=== PATIENT | male | born 1955 | race Caucasian/White ===

== ENCOUNTER 2022-03-15 13:03 | Emergency (ER) | payer MEDICAID, SELFPAY ==
[2022-03-15] VITALS (29 sets, daily range): BP systolic 124–177; BP diastolic 91–155; PULSE 75–98; RESP 18–22; TEMP 36.7; O2SAT 93–100
--- NOTE | ~2022-03-15 | XR_ITS ---
Portable chest x-ray Comparison: 05/04/2014 Clinical History: COPD Findings: COPD pattern present. No acute consolidation or pleural effusion. Cardiomediastinal silho uette is stable. Bones and soft tissues are unremarkable. Impression: COPD. Reviewed, dictated and finalized at [facility]. 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
--- NOTE | 2022-03-15 13:48 | ECG_ITS ---
Measurements Intervals [place] Rate: 84 P: 57 [place]: 150 QRS: 34 QRSD: 112 T: 73 QT: 348 QTc: 413 Interpretive Statements SINUS RHYTHM INDETERMINATE AXIS INCOMPLETE RIGHT BUNDLE BRANCH BLOCK BASELINE ARTIFACT BORDERLINE ECG NO PREVIOUS ECG AVAILABLE FOR COMPARISON Electronically Signed On 03-15-2022 16:11:18 CATALYTIC CONVERTER OPERATOR by Corey Santana M.D.
--- NOTE | 2022-03-15 13:51 | ED.GENADULT ---
HPI - General Adult General Chief complaint: Shortness of Breath/Dyspnea Stated complaint: trouble breathing, left side hip pain Time Seen by Provider: 03/15/22 13:40 History of Present Illness HPI narrative: the patient is a 66-year-old male who is not currently on any medications due to lack of insurance for several years. He has a previous diagnosis of COPD and asthma as a child for that. He does smoke cigarettes, approximately 3 packs per day initially and now down to 1.5 packs per day. He has no oxygen at home, currently is not on inhalers or nebulizers but does have the nebulizer machine. Last use of the nebulizer machine was in 2005, last use of any inhalers, albuterol, was 2018. History of diverticulitis and pneumonia treated with antibiotics. Never contracted COVID. Is vaccinated against COVID-19. History of left hip dislocation four decades ago. He presents with symptoms off and on for the last 6 years of occasional shortness of breath cough and wheezing. For the last 3 weeks however the symptoms have increased. He has audible wheezing. He feels short of breath. Does have a cough occasionally productive of white to green phlegm. With coughing, he develops left-sided rib pain and right-sided rib pain. He also complains of left hip pain. He is able to ambulate but with a limp. No recent trauma to the left hip. No dislocation. No falls. No fevers or chills or sore throat or nasal congestion. No other complaints. Related Data Allergies Allergy/AdvReac Type Severity Reaction Status Date / Time Sodium pentathol AdvReac emesis Uncoded 03/15/22 14:04 Review of Systems Review of Systems: All systems reviewed & are unremarkable except as noted in HPI and below Constitutional: Constitutional: Reports no additional constitutional complaints, Denies anorexia, Denies body ache(s), Denies chills, Denies excessive sweating, Denies fatigue, Denies fever(s), Denies frequent falls, Denies headache(s), Denies malaise and Denies poor appetite Eyes: Eyes: Reports no additional eye complaints, Denies blurry vision, Denies change in vision, Denies irritation, Denies itchy eyes and Denies photophobia ENT: Reports system reviewed and no additional complaints, except as documented, Reports Normal hearing present, Denies change in voice, Denies dysphagia, Denies vertigo, Denies dizziness, Denies ear discharge, Denies headache(s), Denies hearing loss, Denies hoarseness, Denies nasal congestion, Denies neck pain, Denies sinus pressure, Denies sore throat and Denies throat swelling Cardiovascular: Cardiovascular: Reports no additional cardiovascular complaints, Denies chest pain, Denies syncope, Denies rapid heart rate, Denies irregular heart rhythm, Denies leg edema, Denies dyspnea and Denies slow heart rate Respiratory: Respiratory: Reports no additional respiratory complaints, Reports cough, Reports dyspnea, Denies stridor and Reports wheezing Gastrointestinal: Gastrointestinal: Reports no additional gastrointestinal complaints, Denies abdominal pain, Denies melena, Denies hematochezia, Denies dysphagia, Denies diarrhea, Denies nausea and Denies vomiting Genitourinary: Genitourinary: Denies hematuria, Denies oliguria, Denies dysuria, Denies flank pain, Denies urinary frequency and Denies urinary urgency Musculoskeletal: Musculoskeletal: Reports no additional musculoskeletal complaints, Reports abnormal gait, Denies back pain, Denies myalgias, Reports arthralgias, Denies joint swelling, Denies muscle cramps, Denies muscle weakness, Denies neck pain and Denies numbness Integumentary/Breasts: Skin/Breast: Reports system reviewed and no additional complaints, except as docu, Denies breast pain, Denies change in pigmentation, Denies pruritus, Denies erythema and Denies wounds Neurologic: Reports system reviewed and no additional complaints, except as documented, Reports Normal hearing present, Denies Abnormal speech present, Denies abnormal gait, Luis
[2022-03-15] MEDS: IPRATROPIUM 0.5 MG/ALBUTEROL SULFATE 2.5 MG AMPUL.NEB 3 ML INHALATION (13:57)
[2022-03-15 14:08] LABS: Base Excess ABG 3.6 mmol/L (0-2); HCO3 ABG 28.5 mmol/L (23-29); Oxygen Content ABG 21.4 %vol (16.0-22.0); Oxygen Saturation ABG 95.1 % (95-97); Oxyhemoglobin 92.4 % (94-100); PCO2 ABG 43.9 mmHg (35-45); PO2 ABG 70.2 mmHg (80-90); Site Drawn RIGHT RADIAL; Total Hemoglobin 16.5 g/dL (12.0-18.0); pH ABG 7.43 (7.35-7.45)
[2022-03-15 14:09] LABS: Device ROOM AIR; Modified Allen's Test Pass
[2022-03-15 14:13] LABS: Basophils Absolute Auto 0.05 K/mm3 (0.00-0.10); Basophils Percent Auto 0.6 % (0.0-1.0); Eosinophils Absolute Auto 0.37 K/mm3 (0.02-0.50); Eosinophils Percent Auto 4.4 % (1.0-6.0); Hematocrit 46.2 % (40.0-54.0); Hemoglobin 15.6 g/dL (14.0-18.0); Immature Granulocyte Absolute 0.03 K/mm3 (0.00-0.00); Immature Granulocyte Percent A 0.4 % (0.0-0.0); Lymphocytes Absolute Auto 0.91 K/mm3 (1.10-4.50); Lymphocytes Percent Auto 10.7 % (18.0-42.0); Mean Corpuscular HGB Conc 33.8 g/dL (32.0-36.0); Mean Corpuscular Hemoglobin 30.6 pg (27.0-31.0); Mean Corpuscular Volume 90.8 fL (78.0-102.0); Mean Platelet Volume 8.1 fl (8.7-11.0); Monocytes Absolute Auto 0.73 K/mm3 (0.10-0.90); Monocytes Percent Auto 8.6 % (2.0-11.0); Neutrophils Absolute Auto 6.4 K/mm3 (1.7-7.2); Neutrophils Percent Auto 75.3 % (50.0-70.0); Platelet Count Result 282 K/mm3 (150-420); Red Blood Count 5.09 M/mm3 (4.70-6.10); Red Cell Distribution Width 12.3 % (11.6-14.4); White Blood Count 8.5 K/mm3 (4.8-10.8)
[2022-03-15] MEDS: ACETAMINOPHEN 500 MG TABLET 1000 MG PO (14:21)
[2022-03-15] MEDS: KETOROLAC 30 MG/ML VIAL (*BKC) 15 MG IV PUSH (14:22)
[2022-03-15] MEDS: methylPREDNISolone SOD SUCC 125 MG VIAL IV PUSH (14:24)
[2022-03-15] MEDS: MAGNESIUM SULF 2 GM/WATER 50ML 2 GM/50 ML BAG IVPB (14:27)
[2022-03-15 14:32] LABS: Alanine Aminotransferase 14 U/L (16-63); Albumin Level 4.1 g/dL (3.4-5.0); Alkaline Phosphatase 109 U/L (46-116); Anion Gap 5 mmol/L (8-16); Aspartate Amino Transferase 17 U/L (15-37); Bilirubin,Total 0.4 mg/dL (0.00-1.00); Blood Urea Nitrogen 12 mg/dL (7-18); CRP 0.5 mg/dL (0.0-0.9); Calcium 9.3 mg/dL (8.5-10.1); Carbon Dioxide 33 mmol/L (21-32); Chloride 94 mmol/L (98-108); Estimated CRCL calculation 66 ml/min; Estimated Glomerular Filt Rate > 60; Glucose 102 mg/dL (70-99); Lactic Acid Reflex 1.3 mmol/L (0.4-2.0); Magnesium 1.8 mg/dL (1.8-2.4); Osmolality Calculated 273 mOsm/kg (285-295); Potassium 4.2 mmol/L (3.5-5.1); Sodium 132 mmol/L (136-145); Total Protein 8.2 g/dL (6.4-8.2); Troponin I 20.8 ng/L (0.00-60.4)
--- NOTE | 2022-03-15 14:37 | PC.NURSE ---
PT IS SITTING UP ON STRETCHER WITH IV MEDICATION INFUSING ORDERED WITHOUT DIFFICULTY. DELAY IN ANTIBIOTICS DUE TO VERIFYING THE NEED OF BLOOD CULTURES WITH ERP. NAD NOTED. PT IS TEXTING ON CELL WITHOUT ANY DISTRESS NOTED. PT IS AWAITING RESULTS AT THIS TIME. WILL CONTINUE TO MONITOR.
[2022-03-15 15:09] LABS: Influenza A QL RT-PCR Negative (Negative); Influenza B QL RT-PCR Negative (Negative); SARS-CoV-2 RNA PCR Negative (Negative)
[2022-03-15 15:10] LABS: RSV RNA, RT-PCR Negative (Negative)
[2022-03-15 15:19] LABS: Erythrocyte Sedimentation Rate 10 mm/hr (0-20)
[2022-03-15] MEDS: AZITHROMYCIN 250 MG TABLET 500 MG PO (15:29)
--- NOTE | 2022-03-15 15:33 | PC.NURSE ---
PT SITTING ON STRETCHER TEXTING ON CELL. NAD NOTED. PT REPORTS HIP PAIN HAS IMPROVED, HOWEVER REMAINS. PT DENIES WANTING ANY FURTHER MEDICATION FOR THE PAIN. I HAVE TO DRIVE HOME. VSS PER MONITOR. IV MEDICATION INFUSING ORDERED WITHOUT DIFFICULTY. WILL CONTINUE TO MONITOR.
== END 2022-03-15 16:10 | disposition home or self-care (01) ==
PROVIDERS: Emergency Provider Emergency Medicine
DX: J44.1 Chronic obstructive pulmonary disease with (acute) exacerbation (principal); M25.552 Pain in left hip; I16.9 Hypertensive crisis, unspecified; F17.200 Nicotine dependence, unspecified, uncomplicated; Z20.822 Contact with and (suspected) exposure to COVID-19; Z76.0 Encounter for issue of repeat prescription
CPT/HCPCS: 36415; 36600; 71045; 80053; 82805; 83605; 83735; 84484; 85025; 85652; 86140; 87637; 93005; 94640; 96365; 96367; 96375; 99284; A9270; J0696; J1885; J2930; J3475

== ENCOUNTER 2022-04-05 12:24 | Outpatient (CLI) | payer MEDICAID, SELFPAY ==
--- NOTE | ~2022-04-05 | XR_ITS ---
AP and lateral views of the bilateral hips Clinical history: Pain Findings: No acute fracture or dislocation is seen. Osseous alignment is anatomic. There is moderate to advanced left hip joint degenerative change. There is mild right hip joint degenerative change.. S oft tissues are unremarkable. 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 Mild right hip joint osteoarthritis. No acute fracture identified. Reviewed, dictated and finalized at location M. 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 Mild right hip joint osteoarthritis. No acute fracture identified.
--- NOTE | ~2022-04-05 | XR_ITS ---
Lumbosacral Spine: AP and lateral views Clinical History: Pain Findings: The normal lordotic curve is maintained. The vertebral bodies and posterior elements are i ntact. There are minimal degenerative disc changes at L4-L5 and L5-S1. The sacroiliac joints are nor kerry outlined. Impression: Minimal degenerative disc changes, as above. Reviewed, dictated and finalized at location . DATA ARCHITECT Impression: Minimal degenerative disc changes, as above.
== END 2022-04-05 12:25 | disposition home or self-care (01) ==
LOC: CHSIMG 12:26
PROVIDERS: PCP Internal Medicine; Visit Provider Internal Medicine
DX: M54.50 Low back pain, unspecified (principal); M25.552 Pain in left hip; M25.551 Pain in right hip; M16.0 Bilateral primary osteoarthritis of hip
CPT/HCPCS: 72100; 73521

== ENCOUNTER 2022-05-11 09:12 | Outpatient (CLI) | payer OTHER, MEDICAID, SELFPAY ==
[2022-05-11 09:35] LABS: Basophils Absolute Auto 0.09 K/mm3 (0.00-0.10); Basophils Percent Auto 0.8 % (0.0-1.0); Eosinophils Absolute Auto 0.44 K/mm3 (0.02-0.50); Eosinophils Percent Auto 3.8 % (1.0-6.0); Hematocrit 47.2 % (40.0-54.0); Hemoglobin 15.8 g/dL (14.0-18.0); Immature Granulocyte Percent A 0.9 % (0.0-0.0); Lymphocytes Absolute Auto 1.28 K/mm3 (1.10-4.50); Mean Corpuscular HGB Conc 33.5 g/dL (32.0-36.0); Mean Corpuscular Hemoglobin 30.7 pg (27.0-31.0); Mean Corpuscular Volume 91.7 fL (78.0-102.0); Mean Platelet Volume 7.8 fl (8.7-11.0); Monocytes Absolute Auto 1.24 K/mm3 (0.10-0.90); Monocytes Percent Auto 10.6 % (2.0-11.0); Neutrophils Absolute Auto 8.5 K/mm3 (1.7-7.2); Neutrophils Percent Auto 72.9 % (50.0-70.0); Platelet Count Result 370 K/mm3 (150-420); Red Blood Count 5.15 M/mm3 (4.70-6.10); Red Cell Distribution Width 13.6 % (11.6-14.4); White Blood Count 11.7 K/mm3 (4.8-10.8)
[2022-05-11 10:16] LABS: Alanine Aminotransferase 25 U/L (16-63); Albumin Level 4.2 g/dL (3.4-5.0); Alkaline Phosphatase 106 U/L (46-116); Anion Gap 4 mmol/L (8-16); Aspartate Amino Transferase 18 U/L (15-37); Bilirubin,Total 0.5 mg/dL (0.00-1.00); Blood Urea Nitrogen 31 mg/dL (7-18); Calcium 9.5 mg/dL (8.5-10.1); Carbon Dioxide 34 mmol/L (21-32); Chloride 93 mmol/L (98-108); Cholesterol 200 mg/dL (0-200); Estimated Glomerular Filt Rate 54; Glucose 92 mg/dL (70-99); HDL Direct 75 mg/dL (40-60); LDL Cholesterol Calculated 98 mg/dL (<130); NT Pro B Type Natriuretic Pept 130 pg/mL (0-125); Osmolality Calculated 278 mOsm/kg (285-295); Potassium 5.4 mmol/L (3.5-5.1); Sodium 131 mmol/L (136-145); Thyroid Stimulating Hormone 1.69 uIU/mL (0.36-3.74); Total Protein 7.8 g/dL (6.4-8.2); Triglycerides 135 mg/dL (0-150)
== END 2022-05-11 09:13 | disposition home or self-care (01) ==
PROVIDERS: PCP Internal Medicine; Visit Provider Internal Medicine
DX: R06.00 Dyspnea, unspecified (principal); J44.9 Chronic obstructive pulmonary disease, unspecified; R63.5 Abnormal weight gain
CPT/HCPCS: 36415; 80053; 80061; 83880; 84443; 85025; 94060; 94726; 94729

== ENCOUNTER 2022-05-28 09:26 | Outpatient (CLI) | payer MEDICAID, SELFPAY ==
--- NOTE | ~2022-05-28 | CT_ITS ---
CT Scan of the Chest without Contrast: Clinical Indication: Lung cancer screening, personal history of nicotine dependence Technique: Contiguous sections were acquired throughout the chest without intravenous contrast. Dose reduction technique was used on this scan by utilizing automated exposure control and iterative recon struction technique. The dose-length product (DLP) was 269.55 mGy-cm. Findings: There is no evidence of any significant mediastinal, hilar or axillary lymphadenopathy. The mediastin al soft tissues appear normal. There is no evidence of pleural or pericardial effusion. There is an 8 mm left upper lobe pulmonary nodule (axial image 46). There is severe emphysema, especi ally the upper lobes. There is mild bibasilar subpleural reticulation. Images through the upper abdomen reveal no abnormalities. Impression: Lung RADS 4: Suspicious finding. 8 mm left upper lobe pulmonary nodule. 3 month follow-up screening C T recommended. Severe emphysema. Reviewed, dictated and finalized at location . Impression: Lung RADS 4: Suspicious finding. 8 mm left upper lobe pulmonary nodule. 3 month follow-up screening CT recommended. Severe emphysema.
== END 2022-05-28 09:27 | disposition home or self-care (01) ==
LOC: CHSIMG 09:28
PROVIDERS: PCP Internal Medicine; Visit Provider Internal Medicine
DX: Z12.2 Encounter for screening for malignant neoplasm of respiratory organs (principal); Z87.891 Personal history of nicotine dependence; R91.8 Other nonspecific abnormal finding of lung field; J43.9 Emphysema, unspecified
CPT/HCPCS: 71271

== ENCOUNTER 2022-06-03 11:54 | Outpatient (CLI) | payer MEDICAID, SELFPAY ==
[2022-06-03 12:07] LABS: Basophils Absolute Auto 0.07 K/mm3 (0.00-0.10); Basophils Percent Auto 0.6 % (0.0-1.0); Eosinophils Absolute Auto 0.18 K/mm3 (0.02-0.50); Eosinophils Percent Auto 1.4 % (1.0-6.0); Hematocrit 46.2 % (40.0-54.0); Hemoglobin 15.4 g/dL (14.0-18.0); Immature Granulocyte Absolute 0.06 K/mm3 (0.00-0.00); Immature Granulocyte Percent A 0.5 % (0.0-0.0); Lymphocytes Absolute Auto 0.78 K/mm3 (1.10-4.50); Lymphocytes Percent Auto 6.3 % (18.0-42.0); Mean Corpuscular HGB Conc 33.3 g/dL (32.0-36.0); Mean Corpuscular Hemoglobin 30.7 pg (27.0-31.0); Mean Corpuscular Volume 92.2 fL (78.0-102.0); Mean Platelet Volume 7.6 fl (8.7-11.0); Monocytes Absolute Auto 0.75 K/mm3 (0.10-0.90); Neutrophils Absolute Auto 10.6 K/mm3 (1.7-7.2); Neutrophils Percent Auto 85.2 % (50.0-70.0); Platelet Count Result 379 K/mm3 (150-420); Red Blood Count 5.01 M/mm3 (4.70-6.10); Red Cell Distribution Width 13.4 % (11.6-14.4); White Blood Count 12.4 K/mm3 (4.8-10.8)
[2022-06-03 13:01] LABS: Alanine Aminotransferase 20 U/L (16-63); Albumin Level 4.2 g/dL (3.4-5.0); Alkaline Phosphatase 126 U/L (46-116); Anion Gap 5 mmol/L (8-16); Aspartate Amino Transferase 17 U/L (15-37); Bilirubin,Total 0.4 mg/dL (0.00-1.00); Blood Urea Nitrogen 16 mg/dL (7-18); Carbon Dioxide 33 mmol/L (21-32); Chloride 93 mmol/L (98-108); Estimated Glomerular Filt Rate > 60; Glucose 112 mg/dL (70-99); NT Pro B Type Natriuretic Pept 159 pg/mL (0-125); Osmolality Calculated 274 mOsm/kg (285-295); Sodium 131 mmol/L (136-145); Total Protein 8.2 g/dL (6.4-8.2)
== END 2022-06-03 11:55 | disposition home or self-care (01) ==
LOC: CHSLAB 11:56
PROVIDERS: PCP Internal Medicine; Visit Provider Internal Medicine
DX: I50.9 Heart failure, unspecified (principal); J44.9 Chronic obstructive pulmonary disease, unspecified
CPT/HCPCS: 36415; 80053; 83880; 85025

== ENCOUNTER 2022-06-07 07:20 | Outpatient (CLI) | payer MEDICARE, MEDICAID, SELFPAY ==
--- NOTE | 2022-06-07 07:37 | EST_ITS ---
Patient Info Name: Mane Contreras Age: 66 years : 1955 Gender: Male Ht: 68 in Wt: 197 lbs BSA: 2.09 m2 HR: 75 bpm BP: 127 / 74 mmHg Heart Rhythm: Sinus Arrhythmia Technical Quality: Good Exam Date: 06/07/2022 9:03 AM Exam Location: [facility] Patient Status: Outpatient Admit Date: 06/07/2022 Staff Ordering Physician: Franklin German MD Attending Provider: Franklin German MD Exam Type: CA stress hu w NM Study Info A regadenoson stress test was performed. History/Risk Factors Hypertension: Yes Chronic Lung Disease: Yes Summary 1. 1. Negative lexiscan stress test for ischemic ST changes by ECG criteria. 2. 2. Stable hemodynamics throughout the test. 3. 3. Nuclear scan to follow and will be reported separately. Please correlate with it. Protocol: LEXISCAN Stress ECG Details Stage: REST Duration (min): 1 min : 33 sec HR (bpm): 69 SBP (mmHg): 127 DBP (mmHg): 74 Stage: REST Duration (min): 9 min : 40 sec HR (bpm): 71 SBP (mmHg): 127 DBP (mmHg): 74 Stage: STAGE 1 Duration (min): 0 min : 16 sec HR (bpm): 72 SBP (mmHg): 127 DBP (mmHg): 74 Stage: RECOVERY Duration (min): 0 min : 43 sec HR (bpm): 86 SBP (mmHg): 127 DBP (mmHg): 74 Stage: RECOVERY Duration (min): 1 min : 43 sec HR (bpm): 87 SBP (mmHg): 139 DBP (mmHg): 79 Stage: RECOVERY Duration (min): 2 min : 43 sec HR (bpm): 83 SBP (mmHg): 128 DBP (mmHg): 72 Stage: RECOVERY Duration (min): 3 min : 43 sec HR (bpm): 80 SBP (mmHg): 127 DBP (mmHg): 71 Stage: RECOVERY Duration (min): 4 min : 43 sec HR (bpm): 80 SBP (mmHg): 122 DBP (mmHg): 68 Stage: RECOVERY Duration (min): 5 min : 43 sec HR (bpm): 80 SBP (mmHg): 121 DBP (mmHg): 72 Stage: RECOVERY Duration (min): 6 min : 13 sec HR (bpm): 80 SBP (mmHg): 121 DBP (mmHg): 72 Rest HR: 71 bpm Peak HR: 89 bpm Rest Sys BP: 127 mmHg Peak Sys BP: 139 mmHg Max Pred HR: 156 bpm % Max Pred HR: 57 % Target HR: 133 bpm Max RPP: 12,371 bpm*mmHg Termination Reason: Completed Protocol Cardiac Symptoms: None Total Time: 0 min : 16 sec Rest [place] BP: 74 mmHg Peak [place] BP: 79 mmHg Total Dose: 0.4 mg Resting ECG Sinus rhythm, IRBBB, delayed precordial R/S transition. Stress ECG No abnormal ST/T wave changes. Arrhythmias No arrhythmias were observed during the examination. Report Signatures
--- NOTE | 2022-06-07 13:50 | P.NST_ITS ---
Nuclear Stress Test INDICATIONS Indications: Dyspnea PROCEDURE Procedure Performed: Myocardial Perf Spect-Multi Procedure: Patient underwent a lexiscan stress test and immediately was injected with 32.7 mCi of cardiolyte. Multiple tomographic images were obtained. These are of good quality. There is a large, severe inferior and inferoapical perfusion defects during stress imaging. A separate resting images were obtained after patient was injected with 10.1 mCi of cardiolyte. Multiple tomographic images were obtained. These are of good quality. There is a large, severe inferior and inferoapical perfusion defects during rest imaging. CONCLUSION Conclusion: 1. Myocardial perfusion imaging demonstrates fixed large, severe inferior and inferoapical perfusion defects suggestive of diaphragmatic attenuation artifact. 2. No evidence of reversible ischemia. 3. Left ventriculogram demonstrates mildly decreased measured left ejection fra ction of 47% with no wall motion abnormalities. 4. TID score 1.31 is abnormal, however, LV was not visually dilated with stress testing. Cannot r/o triple vessel or left main disease.
== END 2022-06-07 07:21 | disposition home or self-care (01) ==
LOC: CHSCARD 07:28
PROVIDERS: PCP Internal Medicine; Visit Provider Internal Medicine
DX: I50.9 Heart failure, unspecified (principal); R94.39 Abnormal result of other cardiovascular function study
CPT/HCPCS: 78452; 93017; A9502; J2785

== ENCOUNTER 2022-07-19 09:12 | Outpatient (CLI) | payer MEDICARE, MEDICAID, SELFPAY ==
--- NOTE | 2022-07-19 09:37 | ECHO_ITS ---
Patient Info Name: Mane Contreras Age: 67 years : 1955 Gender: Male Ht: 68 in Wt: 201 lbs BSA: 2.12 m2 HR: 72 bpm BP: 159 / 92 mmHg Heart Rhythm: Sinus Rhythm Technical Quality: Poor Exam Date: 07/19/2022 9:32 AM Exam Location: [facility] Patient Status: Outpatient Admit Date: 07/19/2022 Staff Ordering Physician: Eliud Kinsey DO Game Technician: Earline Olivarez RDCS Attending Provider: Eliud Kinsey DO Referring Physician: Tio CARLSON; Exam Type: CA echo doppler color flow Study Info Indications - other form of dyspnea Complete two-dimensional, color flow and Doppler transthoracic echocardiogram is performed. Reason for Poor Study: poor patient cooperation History/Risk Factors Hypertension: Yes Chronic Lung Disease: Yes Summary 1. Complete two-dimensional, color flow and Doppler transthoracic echocardiogram is performed. 2. Left ventricular chamber dimension is normal. 3. Left ventricular systolic function is normal, estimated at 55-60%. 4. There is mild concentric increased left ventricular wall thickness. 5. The left ventricular diastolic function is grade I diastolic dysfunction. 6. E/e' 10 is mildly elevated. 7. There is moderate aortic valve sclerosis. 8. No pulmonary hypertension, estimated pulmonary arterial systolic pressure is 7 mmHg. 9. There is trace pulmonic regurgitation. Left Ventricle E/e' 10 is mildly elevated. Left ventricular chamber dimension is normal. Left ventricular systolic function is normal, estimated at 55-60%. There is mild concentric increased left ventricular wall thickness. The left ventricular diastolic function is grade I diastolic dysfunction. Right Ventricle Right ventricular systolic function is normal and with normal TAPSE 2.7 cm. Right ventricular chamber dimension is normal. Left Atria Left atrial chamber dimension is normal. Right Atria Right atrial chamber dimension is normal. Aortic Valve The aortic valve is trileaflet. There is moderate aortic valve sclerosis. There is no aortic valve stenosis. There is no aortic valve regurgitation. Pulmonic Valve There is trace pulmonic regurgitation. Mitral Valve There is no mitral valve stenosis. There is no mitral valve regurgitation. Tricuspid Valve There is no tricuspid valve regurgitation. No pulmonary hypertension, estimated pulmonary arterial systolic pressure is 7 mmHg. Pericardium/Pleural There is no pericardial effusion. Inferior Vena Cava Normal inferior vena cava with >50% collapse upon inspiration consistent with normal right atrial pressure, 5 mmHg. Aorta The aortic root size at the sinus of Valsalva is normal. Left Ventricular Outflow Tract Name Value Normal LVOT 2D LVOT Diameter 1.9 cm LVOT Doppler LVOT Peak Velocity 84 cm/s LVOT Peak Gradient 3 mmHg LVOT Mean Gradient 1 mmHg LVOT VTI 21 cm LVOT VTI/AV VTI Ratio 0.7 LVOT Stroke Volume 62 ml Pulmonic Valve Name Value N
== END 2022-07-19 09:13 | disposition home or self-care (01) ==
PROVIDERS: PCP Internal Medicine; Visit Provider Internal Medicine Cardiovascular Disease
DX: R06.09 Other forms of dyspnea (principal); I35.8 Other nonrheumatic aortic valve disorders
CPT/HCPCS: 93306

== ENCOUNTER 2022-07-28 01:58 | Day surgery (SDC) | payer MEDICARE, MEDICAID, SELFPAY ==
[2022-07-27 17:55] VITALS: BMI 30.7
[2022-07-28] VITALS (12 sets, daily range): BP systolic 111–148; BP diastolic 59–90; PULSE 72–88; RESP 14–20; TEMP 37; O2SAT 95–100; BMI 30.7
[2022-07-28 09:12] LABS: Basophils Absolute Auto 0.1 K/mm3 (0.0-0.1); Basophils Percent Auto 0.6 % (0.2-1.2); Eosinophils Absolute Auto 0.2 K/mm3 (0-0.3); Hematocrit 50.8 % (42.0-52.0); Immature Granulocyte Absolute 0.15 K/mm3 (0.00-0.031); Immature Granulocyte Percent A 0.9 % (0-0.5); Lymphocytes Absolute Auto 1.06 K/mm3 (0.9-3.2); Lymphocytes Percent Auto 6.5 % (18.3-44.2); Mean Corpuscular HGB Conc 33.5 g/dl (32-36); Mean Corpuscular Hemoglobin 31.8 pg (26-34); Mean Corpuscular Volume 95.1 fl (80-100); Mean Platelet Volume 7.8 fl (7.4-10.4); Monocytes Absolute Auto 1.1 K/mm3 (0.1-0.6); Monocytes Percent Auto 6.7 % (2.6-8.5); Neutrophils Absolute Auto 13.8 K/mm3 (1.3-6.7); Neutrophils Percent Auto 84.3 % (45.5-73.1); Platelet Count Result 309 k/mm3 (150-375); Red Blood Count 5.34 M/mm3 (4.6-6.20); White Blood Count 16.3 K/mm3 (4.5-10.0)
[2022-07-28 09:21] LABS: Anion Gap 5 mmol/L (8-16); Blood Urea Nitrogen 17 mg/dL (9-20); Calcium 9.5 mg/dL (8.4-10.2); Carbon Dioxide 34 mmol/L (22-30); Chloride 96 mmol/L (98-107); Estimated CRCL calculation 79 ml/min; Estimated Glomerular Filt Rate > 60; Glucose 95 mg/dL (65-110); Potassium 4.2 mmol/L (3.4-5.0); Sodium 135 mmol/L (137-145)
--- NOTE | 2022-07-28 11:17 | WPDHPUPDATE1 ---
History and Physical Update Update Date/Time: 07/28/22 11:17 History and Physical has been reviewed, including an updated exam of the patient. There are NO changes in the patient's condition. Risks, benefits, and alternatives have been discussed and questions answered. Patient agrees to proceed with procedure.
--- NOTE | 2022-07-28 11:17 | WPDMODSED ---
Moderate Sedation Note-Pt Data Patient Data Diagnosis: Coronary artery disease Present Complaint: Coronary artery disease Procedure to be performed/Plan: Coronary angiography, LHC, +/- PCI Allergies Allergy/AdvReac Type Severity Reaction Status Date / Time latex AdvReac Rash Verified 07/28/22 09:04 Sodium pentathol AdvReac emesis Uncoded 07/28/22 09:04 Home Medications Medication Instructions Recorded Confirmed Type ipratropium 0.5 mg-albuterol 3 mg 3 ml inhalation QID PRN shortness 03/15/22 07/28/22 Rx (2.5 mg base)/3 mL nebulization of breath or wheezing #90 mL soln famotidine 40 mg tablet 40 mg PO HS 06/21/22 07/27/22 History verapamil 120 mg 24 hr 120 mg PO DAILY 06/21/22 07/28/22 History capsule,extended release aspirin 81 mg tablet,delayed 81 mg PO DAILY 07/14/22 07/28/22 History release pravastatin 10 mg tablet 10 mg PO DAILY #90 tabs 07/14/22 07/28/22 Rx cholecalciferol (vitamin D3) 10 25 mcg PO HS 07/15/22 07/27/22 History mcg (400 unit) capsule montelukast 10 mg tablet 10 mg PO HS 07/15/22 07/27/22 History losartan 25 mg tablet 25 mg PO DAILY #90 tabs 07/16/22 07/28/22 Rx albuterol sulfate 90 mcg/actuation 2 - 4 puff inhalation Q4-6H PRN 07/27/22 07/27/22 History aerosol inhaler Wheezing budesonide-formoterol HFA 160 2 puff inhalation Q12H 07/27/22 07/28/22 History mcg-4.5 mcg/actuation aerosol inhaler (Symbicort) fluticasone propionate 50 2 spray intranasal BID 07/27/22 07/28/22 History mcg/actuation nasal spray,suspension hydrocodone 10 mg-acetaminophen 1 tablet PO HS 07/27/22 07/27/22 History 325 mg tablet nicotine 21 mg/24 hr daily 1 patch topical DAILY 07/27/22 07/28/22 History transdermal patch prednisone 5 mg tablet 5 mg PO DAILY 07/27/22 07/28/22 History tiotropium bromide 18 mcg capsule 1 cap inhalation DAILY 07/27/22 07/28/22 History with inhalation device (Spiriva with HandiHaler) Current Medications: Active Medications Sodium Chloride (Normal Saline Iv) 500 mls @ 100 mls/hr IV CONT .Q5H GIA Sodium Chloride (Normal Saline Iv) 1,000 mls @ 125 mls/hr IV CONT .Q8H ONE Stop: 07/28/22 19:14 Sedation/Anesthesia: No previous sedation/anesthesia problems (including family history). [facility] Family History Family History Mother Cerebrovascular accident Patient's mother is Father Family history of emphysema Patient's father is Social History Social History Smoking packs per day: 1 Smoking cigarettes per day: 20.0 Years smoked: 56 Smoking pack-years: 56.00 Smoking status: Current every day smoker Tobacco type: cigarettes Second hand tobacco smoke exposure: Yes Additional smoking assessment comments: used to smoke up to 3 ppd, decreased recently to 2 then 1 ppd. Alcohol intake: former Substance use: current Substance use type: marijuana Living arrangements: with friend(s) Spiritual care concerns: No Mod Sed Physical Exam Physical Exam Pre Procedural Exam: Normal: Appearance, Lungs, Heart Rate, Heart Rhythm, Neuro Exam, Abdomen, Extremities and Skin Hours since solid foods: 12 Hours since liquid intake: 8 Mallampati Classification: class III Internal Medicine - PN: Obj Da Vital Signs Vital Signs: Vital Signs - 24 hr 07/28/22 09:14 Temperature 37.0 C Pulse Rate 88 Respiratory Rate 20 Blood Pressure 148/84 H Pulse Oximetry 98 Oxygen Delivery Room Air Meds/Results Medications: Active Medications Generic Name Dose Route Start Last Admin Trade Name Freq PRN Reason Stop Dose Admin Sodium Chloride 500 mls @ 100 mls/hr 07/28/22 08:30 Normal Saline Iv IV CONT .Q5H GIA Sodium Chloride 1,000 mls @ 125 mls/hr 07/28/22 11:15 Normal Saline Iv IV CONT 07/28/22 19:14 .Q8H ONE Labs 07/28/22 08:59 07/28/22 08:59
--- NOTE | 2022-07-28 11:18 | WPDCARDPROC ---
Cardiac Cath Procedure Note Date of procedure:: 07/28/22 Performing physician:: CATHETERIZATION LABORATORY REPORT Procedure Date: 07/28/2022 Beach Attendant: Yosi Schaffer M.D., [facility]? Referring Physician: Dr. Eliud Kinsey ? Anesthesia: Versed and Fentanyl were ordered and given in my presence at 10:12, procedure ended at 11:11. Supervision of nurse monitored moderate sedation with Versed and Fentanyl was provided for 59 minutes. Total of Versed 3.5mg and Fentanyl 75mcg were administered by the After School Tutor RN Munira Dangelo. Pre-op Diagnosis: Coronary artery disease Post-op Diagnosis: 1. The ostium and proximal LAD has 70% disease. IFR of the ostial-proximal LAD is positive for ischemia with a value of 0.84 (<0.89 is pathological). 2. The ostium of the OM-1 has a significant 80-90% focal stenosis. 3. Left ventricular end-diastolic pressure of 26mmHg Procedure(s): 1. Moderate sedation 2. Ultrasound-guided access of the right common femoral artery 3. Coronary angiography 4. Left heart cath 5. IFR of the LAD 6. Angioseal closure of the right common femoral artery Access Site: Right common femoral artery Brief History and Clinical Indications: Patient is a 67-year-old male with history of dyslipidemia, hypertension, COPD, tobacco dependence who is referred for [facility] for anginal symptoms (dyspnea on exertion and chest tightness) in the setting of abnormal coronary CTA. Coronary CTA shows: Vulnerable noncalcified plaque in the proximal LAD resulting in 70% stenosis, predominantly non-calcified plaque in the proximal LCX resulting in at least 90% stenosis, predominantly noncalcified plaque in the mid RCA resulting in 50% stenosis. CT FFR results showed: LCX with lesion specific abnormal CT FFR of 0.55. LAD with lesion specific abnormal CT FFR of 0.63 All risks, benefits and alternatives to left heart catheterization with or without percutaneous coronary intervention was discussed at length with the patient. Risk of complications including but not limited to bleeding, infection, arrhythmia, stroke, worsening kidney function, blood loss, groin hematoma, limb loss, emergency coronary artery bypass grafting, and even were discussed with the patient and all questions were answered. The patient understood and wished to proceed. Time out called, patient name, date of , medical record number, allergies, procedure performed, identify Beach Attendant, patient and staff member concurred with accurate data, procedure carried on. Findings: LEFT HEART CATHETERIZATION FINDINGS: 1. Left main: The left main coronary artery is widely patent without any significant obstructive disease. 2. Left anterior descending: The ostium and proximal LAD has 70% disease. Remainder of the LAD has mild diffuse disease. No obstructive disease in diagonal. IFR of the ostial-proximal LAD is positive for ischemia with a value of 0.84 (<0.89 is pathological). 3. Left circumflex: The left circumflex has mild diffuse disease. The OM-1 vessel is a large caliber branch with a high proximal origin off of the LCX. The ostium of the OM-1 has a significant 80-90% focal stenosis. Remainder of the OM branch has mild diffuse disease. 4. Right coronary artery: The RCA is the dominant vessel. The RCA has mild diffuse disease without an significant obstructive angiographic disease. 5. Left ventricle: A. End-diastolic pressure 26mmHg. B. LV gram deferred. C. No significant gradient across aortic valve on catheter pullback. Description of Procedure: Informed consent signed and placed in the chart. Patient transferred to optical laboratory manager room. Prepped and draped in usual sterile fashion. 2% lidocaine in right groin area. Micropuncture needle used to access right common femoral artery with Seldinger technique under fluoroscopic and ultrasound guidance. J wire advanced, micropuncture cannula placed. Right iliofemoral angiogram performed, access confirmed and micropuncture cannula
== END 2022-07-28 16:45 | disposition home or self-care (01) ==
PROVIDERS: PCP Internal Medicine; Visit Provider Internal Medicine
PROC: 4A023N7 Measurement of Cardiac Sampling and Pressure, Left Heart, Percutaneous Approach (ICD-10-PCS; CPT 93452; principal; 2022-07-28 10:00)
PROC: 4A033BC Measurement of Arterial Pressure, Coronary, Percutaneous Approach (ICD-10-PCS; CPT 93571; 2022-07-28 10:00)
DX: I25.10 Atherosclerotic heart disease of native coronary artery without angina pectoris (principal); R93.1 Abnormal findings on diagnostic imaging of heart and coronary circulation; R06.09 Other forms of dyspnea; R07.89 Other chest pain; I10 Essential (primary) hypertension; E78.5 Hyperlipidemia, unspecified; J44.9 Chronic obstructive pulmonary disease, unspecified; Z79.51 Long term (current) use of inhaled steroids; Z79.82 Long term (current) use of aspirin; F17.210 Nicotine dependence, cigarettes, uncomplicated; F12.90 Cannabis use, unspecified, uncomplicated
CPT/HCPCS: 36415; 80048; 85025; 93458; 93571; A9270; C1760; C1769; C1887; C1894; G0269; J0583; J1644; J2250; J3010; J7040

== ENCOUNTER 2022-08-30 07:45 | Outpatient (CLI) | payer MEDICARE, MEDICAID, SELFPAY ==
--- NOTE | ~2022-08-30 | CT_ITS ---
EXAMINATION: CT diagnostic chest wo con DATE: 08/30/2022 08:02 INDICATION: Solitary pulmonary nodule TECHNIQUE: Computed tomography (CT) of the chest was performed without intravenous contrast. The dose -length product was 404.70 mGy-cm. Automated exposure control and iterative reconstruction technique were employed. COMPARISON: CT dated 05/28/2022 FINDINGS: No thoracic lymphadenopathy. Heart size normal. There are small exophytic left renal lesion s, not well characterized without ultrasound. No significant pleural or pericardial effusion. Severe emphysema. Stable 7 mm left upper lobe nodule. There is a 2 mm left upper lobe nodule, too small to c haracterize for calcification. There are additional calcified granulomas of the right lung. There is a 3 mm nodule left mid thorax unchanged. No endobronchial lesions. There is focal pleural parenchymal scarring of the right mid thorax. No new pulmonary nodules or masses. No pneumothorax. IMPRESSION: 1. Lung-RADS category 2: Benign appearance or behavior. Continue annual screening with noncontrast lo w-dose chest CT in 12 months. Reviewed, dictated and finalized at location A. IMPRESSION: 1. Lung-RADS category 2: Benign appearance or behavior. Continue annual screeni ng with noncontrast low-dose chest CT in 12 months.
== END 2022-08-30 07:46 | disposition home or self-care (01) ==
LOC: CHSIMG 07:45
PROVIDERS: PCP Internal Medicine; Visit Provider Nurse Practitioner Family
DX: R91.1 Solitary pulmonary nodule (principal)
CPT/HCPCS: 71250

== ENCOUNTER 2022-09-01 08:13 | Outpatient (CLI) | payer MEDICARE, SELFPAY ==
[2022-09-01 08:32] LABS: Basophils Absolute Auto 0.06 K/mm3 (0.00-0.10); Basophils Percent Auto 0.4 % (0.0-1.0); Eosinophils Absolute Auto 0.31 K/mm3 (0.02-0.50); Eosinophils Percent Auto 2.3 % (1.0-6.0); Hemoglobin 15.9 g/dL (12.4-15.3); Immature Granulocyte Absolute 0.08 K/mm3 (0.00-0.00); Immature Granulocyte Percent A 0.6 % (0.0-0.0); Lymphocytes Absolute Auto 1.38 K/mm3 (1.10-4.50); Lymphocytes Percent Auto 10.2 % (18.0-42.0); Mean Corpuscular HGB Conc 33.8 g/dL (32.0-36.0); Mean Corpuscular Hemoglobin 32.1 pg (27.0-31.0); Mean Corpuscular Volume 94.8 fL (78.0-102.0); Mean Platelet Volume 7.7 fl (8.7-11.0); Monocytes Absolute Auto 1.18 K/mm3 (0.10-0.90); Monocytes Percent Auto 8.7 % (2.0-11.0); Neutrophils Absolute Auto 10.6 K/mm3 (1.7-7.2); Neutrophils Percent Auto 77.8 % (50.0-70.0); Platelet Count Result 327 K/mm3 (150-420); Red Blood Count 4.96 M/mm3 (4.70-6.10); Red Cell Distribution Width 12.8 % (11.6-14.4); White Blood Count 13.6 K/mm3 (4.8-10.8)
[2022-09-01 09:40] LABS: Alanine Aminotransferase 34 U/L (16-63); Albumin Level 3.9 g/dL (3.4-5.0); Alkaline Phosphatase 104 U/L (46-116); Anion Gap 8 mmol/L (8-16); Aspartate Amino Transferase 21 U/L (15-37); Bilirubin,Total 0.3 mg/dL (0.00-1.00); Blood Urea Nitrogen 22 mg/dL (7-18); Calcium 9.5 mg/dL (8.5-10.1); Carbon Dioxide 30 mmol/L (21-32); Chloride 96 mmol/L (98-108); Estimated Glomerular Filt Rate 45; Glucose 103 mg/dL (70-99); Osmolality Calculated 281 mOsm/kg (285-295); Potassium 4.6 mmol/L (3.5-5.1); Sodium 134 mmol/L (136-145); Total Protein 8.1 g/dL (6.4-8.2)
== END 2022-09-01 08:14 | disposition home or self-care (01) ==
LOC: CHSLAB 08:15
PROVIDERS: PCP Internal Medicine; Visit Provider Internal Medicine Cardiovascular Disease
DX: R07.9 Chest pain, unspecified (principal)
CPT/HCPCS: 36415; 80053; 85025

== ENCOUNTER 2022-11-03 09:30 | Outpatient (RCR) | payer MEDICARE, MEDICAID, SELFPAY | END 2022-11-03 15:27 | disposition home or self-care (01) | PROVIDERS: PCP Internal Medicine; Visit Provider Internal Medicine Cardiovascular Disease | DX: Z95.5 Presence of coronary angioplasty implant and graft (principal) | CPT/HCPCS: 93798 ==

== ENCOUNTER 2022-12-16 13:45 | Outpatient (CLI) | payer MEDICARE, MEDICAID, SELFPAY ==
--- NOTE | ~2022-12-16 | XR_ITS ---
EXAMINATION: XR chest 2V DATE: 12/16/2022 14:07 INDICATION: Cough TECHNIQUE: PA and lateral views of the chest are obtained. COMPARISON: 03/15/2022 FINDINGS: There are minimal airspace opacities of the right midlung zone. Lucencies in the upper lung zones are consistent with emphysema. No pleural effusion or pneumothorax. The cardiomediastinal silh ouette is normal. There is moderate thoracic spondylosis. IMPRESSION: 1. Minimal airspace opacities of the right midlung zone, likely pneumonia. Reviewed, dictated and finalized at location L. TH INFORMATION MANAGERS
== END 2022-12-16 13:46 | disposition home or self-care (01) ==
LOC: CHSIMG 13:48
PROVIDERS: PCP Internal Medicine; Visit Provider Internal Medicine
DX: R05.9 Cough, unspecified (principal); R91.8 Other nonspecific abnormal finding of lung field
CPT/HCPCS: 71046

== ENCOUNTER 2022-12-23 07:45 | Outpatient (CLI) | payer MEDICARE, MEDICAID, SELFPAY ==
--- NOTE | ~2022-12-23 | US_ITS ---
Renal-Bladder ultrasound Clinical History: Proteinuria Technique: Real-time sonographic imaging of the kidneys and urinary bladder was performed. Findings: The right kidney measures 10.3 cm in length and the left kidney measures 10.4 cm. There is no hydronephrosis or renal calculus identified. Renal cortical echogenicity is within normal limits. Left lower pole renal cysts noted. The urinary bladder is moderately distended at the time of this exam. No intraluminal echoes are iden tified. No abnormal wall thickening is seen. Impression: Unremarkable ultrasound of the kidneys and urinary bladder. Reviewed, dictated and finalized at location M. ER'S LICENSE EXAMINER Impression: Unremarkable ultrasound of the kidneys and urinary bladder.
== END 2022-12-23 07:46 | disposition home or self-care (01) ==
LOC: CHSIMG 07:47
PROVIDERS: PCP Internal Medicine; Visit Provider Internal Medicine
DX: R80.9 Proteinuria, unspecified (principal)
CPT/HCPCS: 76775

== ENCOUNTER 2023-02-11 10:56 | Outpatient (CLI) | payer MEDICARE, MEDICAID, SELFPAY ==
--- NOTE | ~2023-02-11 | XR_ITS ---
Clinical Indication: Dyspnea PA and lateral views of the chest: Comparison: 12/16/2022 Findings: The lungs are clear, without evidence of focal consolidation or pleural effusion. COPD radha lm present. Cardiomediastinal silhouette is within normal limits. Bones and soft tissues are unremar kable. Impression: COPD. Reviewed, dictated and finalized at location . LATORY AFFAIRS SPECIALIST Impression: COPD.
[2023-02-11 11:39] LABS: Basophils Absolute Auto 0.05 K/mm3 (0.00-0.10); Basophils Percent Auto 0.3 % (0.0-1.0); Eosinophils Absolute Auto 0.12 K/mm3 (0.02-0.50); Eosinophils Percent Auto 0.8 % (1.0-6.0); Hematocrit 46.3 % (37.0-46.0); Hemoglobin 15.4 g/dL (12.4-15.3); Immature Granulocyte Absolute 0.06 K/mm3 (0.00-0.00); Immature Granulocyte Percent A 0.4 % (0.0-0.0); Lymphocytes Absolute Auto 0.55 K/mm3 (1.10-4.50); Lymphocytes Percent Auto 3.6 % (18.0-42.0); Mean Corpuscular HGB Conc 33.3 g/dL (32.0-36.0); Mean Corpuscular Hemoglobin 31.8 pg (27.0-31.0); Mean Corpuscular Volume 95.5 fL (78.0-102.0); Mean Platelet Volume 7.9 fl (8.7-11.0); Monocytes Absolute Auto 0.78 K/mm3 (0.10-0.90); Monocytes Percent Auto 5.2 % (2.0-11.0); Neutrophils Absolute Auto 13.6 K/mm3 (1.7-7.2); Neutrophils Percent Auto 89.7 % (50.0-70.0); Platelet Count Result 340 K/mm3 (150-420); Red Blood Count 4.85 M/mm3 (4.70-6.10); Red Cell Distribution Width 12.5 % (11.6-14.4); White Blood Count 15.1 K/mm3 (4.8-10.8)
[2023-02-11 11:51] LABS: D Dimer 0.36 mg/L (0.19-0.50)
[2023-02-11 12:21] LABS: Alanine Aminotransferase 34 U/L (16-63); Albumin Level 4.1 g/dL (3.4-5.0); Alkaline Phosphatase 85 U/L (46-116); Anion Gap 6 mmol/L (8-16); Aspartate Amino Transferase 21 U/L (15-37); Bilirubin,Total 0.3 mg/dL (0.00-1.00); Blood Urea Nitrogen 16 mg/dL (7-18); Calcium 10.3 mg/dL (8.5-10.1); Carbon Dioxide 35 mmol/L (21-32); Chloride 92 mmol/L (98-108); Creatine Kinase 128 U/L (39-308); Estimated Glomerular Filt Rate > 60; Glucose 124 mg/dL (70-99); NT Pro B Type Natriuretic Pept 232 pg/mL (0-125); Osmolality Calculated 278 mOsm/kg (285-295); Sodium 133 mmol/L (136-145); Total Protein 7.6 g/dL (6.4-8.2); Troponin I 18.8 ng/L (0.00-60.4)
== END 2023-02-11 10:57 | disposition home or self-care (01) ==
LOC: CHSLAB 11:00
PROVIDERS: PCP Internal Medicine; Visit Provider Internal Medicine
DX: R06.00 Dyspnea, unspecified (principal); J44.9 Chronic obstructive pulmonary disease, unspecified; J18.9 Pneumonia, unspecified organism
CPT/HCPCS: 36415; 71046; 80053; 82550; 82553; 83880; 84484; 85025; 85380; 87070; 87205

== ENCOUNTER 2023-03-14 15:24 | Outpatient (CLI) | payer MEDICARE, MEDICAID, SELFPAY ==
--- NOTE | 2023-03-14 15:31 | ECG_ITS ---
Measurements Intervals [place] Rate: 92 P: 75 OK: 149 QRS: 56 QRSD: 128 T: 60 QT: 359 QTc: 446 Interpretive Statements SINUS RHYTHM WITH OCCASIONAL SUPRAVENTRICULAR PREMATURE COMPLEXES INDETERMINATE AXIS RIGHT BUNDLE BRANCH BLOCK [120+ ms QRS DURATION, UPRIGHT V1, 40+ ms S IN I/aVL/V4/V5/V6] ABNORMAL ECG COMPARED TO ECG 03/15/2022 14:04:47 RIGHT BUNDLE-BRANCH BLOCK NOW PRESENT Electronically Signed On 03-14-2023 17:12:07 QUALITY ASSURANCE INTERN by Dick Fernández M.D.
== END 2023-03-14 15:25 | disposition home or self-care (01) ==
LOC: CHSCARD 15:28
PROVIDERS: PCP Internal Medicine; Visit Provider Internal Medicine Cardiovascular Disease
DX: R07.9 Chest pain, unspecified (principal); I45.10 Unspecified right bundle-branch block; R93.1 Abnormal findings on diagnostic imaging of heart and coronary circulation
CPT/HCPCS: 93005

== ENCOUNTER 2023-04-22 11:06 | Outpatient (CLI) | payer MEDICARE, MEDICAID, SELFPAY ==
--- NOTE | ~2023-04-22 | XR_ITS ---
Clinical Indication: Dyspnea PA and lateral views of the chest: Comparison: 02/11/2023 Findings: Questionable minimal bibasilar haziness. Probable COPD. Cardiomediastinal silhouette is wit hin normal limits. Bones and soft tissues are unremarkable. Impression: Questionable minimal bibasilar pulmonary edema. Correlate clinically. Suspected underlying COPD. Reviewed, dictated and finalized at [facility]. Impression: Questionable minimal bibasilar pulmonary edema. Correlate clinically. Suspected underlying COPD.
== END 2023-04-22 11:07 | disposition home or self-care (01) ==
LOC: CHSIMG 11:08
PROVIDERS: PCP Internal Medicine; Visit Provider Nurse Practitioner Family
DX: R06.09 Other forms of dyspnea (principal); R91.8 Other nonspecific abnormal finding of lung field
CPT/HCPCS: 71046

== ENCOUNTER 2023-08-15 15:38 | Outpatient (CLI) | payer MEDICARE, MEDICAID, SELFPAY ==
--- NOTE | 2023-08-15 15:48 | ECG_ITS ---
Test Date: 2023-08-15 16:02:44 Measurements Intervals [place] Rate: 88 P: 70 OR: 153 QRS: 40 QRSD: 145 T: 35 QT: 346 QTc: 420 Interpretive Statements SINUS RHYTHM WITH OCCASIONAL SUPRAVENTRICULAR PREMATURE COMPLEXES RIGHT BUNDLE BRANCH BLOCK BASELINE ARTIFACT- V4-V5 ABNORMAL ECG No previous ECG available for comparison Electronically Signed On 08-15-2023 16:21:02 CDT by Eliud Kinsey D.O.
== END 2023-08-15 15:39 | disposition home or self-care (01) ==
LOC: CHSCARD 15:42
PROVIDERS: PCP Internal Medicine; Visit Provider Internal Medicine Cardiovascular Disease
DX: Z01.810 Encounter for preprocedural cardiovascular examination (principal); I45.10 Unspecified right bundle-branch block; R94.31 Abnormal electrocardiogram [ECG] [EKG]
CPT/HCPCS: 93005

== ENCOUNTER 2023-08-16 09:06 | Outpatient (CLI) | payer MEDICARE, MEDICAID, SELFPAY ==
[2023-08-16 10:05] LABS: Cholesterol 185 mg/dL (0-200); HDL Direct 68 mg/dL (40-60); LDL Cholesterol Calculated 81 mg/dL (<130); Triglycerides 178 mg/dL (0-150)
== END 2023-08-16 09:07 | disposition home or self-care (01) ==
LOC: CHSLAB 09:08
PROVIDERS: PCP Internal Medicine; Visit Provider Internal Medicine Cardiovascular Disease
DX: E78.5 Hyperlipidemia, unspecified (principal)
CPT/HCPCS: 36415; 80061

== ENCOUNTER 2023-08-17 11:13 | Outpatient (CLI) | payer MEDICARE, MEDICAID, SELFPAY ==
[2023-08-17] VITALS (8 sets, daily range): PULSE 104–112; O2SAT 93–94
--- NOTE | 2023-08-17 11:43 | HOMEO2EVAL ---
Evaluation was performed at [facility] Home Oxygen Evaluation RC: Home Oxygen (O2) Evaluation Start: 08/17/23 11:36 Freq: Status: Active Protocol: RPE Activity Type Activity Date Activity User E-sign Co-sign Detail Recorded Client Recorded Date Recorded By Document 08/17/23 11:19 RES [id number] 08/17/23 11:38 RES Document 08/17/23 11:20 RES [id number] 08/17/23 11:38 RES Document 08/17/23 11:21 RES [id number] 08/17/23 11:38 RES Document 08/17/23 11:22 RES [id number] 08/17/23 11:43 RES Document 08/17/23 11:23 RES [id number] 08/17/23 11:43 RES Document 08/17/23 11:24 RES [id number] 08/17/23 11:43 RES Document 08/17/23 11:25 RES [id number] 08/17/23 11:43 RES Document 08/17/23 11:26 RES [id number] 08/17/23 11:43 RES 08/17/23 08/17/23 08/17/23 11:19 11:20 11:21 Home O2 Evaluation [Oxygen] -Test Phase Resting Exercise Exercise -Oxygen Delivery Room Air Room Air Room Air -Fraction of Inspired Oxygen (%) 21 21 21 [Pulse Oximetry] -Pulse Oximetry (90-100 %) 93 94 94 [Pulse Rate] -Pulse Rate (60-100 beats/min) 109 H 111 H 109 H [Evaluation] -Activity Tolerance Good Good Good -Rating of Perceived Dyspnea (PD) +3 Moderate +3 Moderate +3 Moderate Difficulty, But Difficulty, But Difficulty, But Can Continue Can Continue Can Continue -Rate of Perceived Exertion (PE) 12 13 Somewhat 13 Somewhat Query Text:Click the Protocol Button Hard Hard to View the RPE Scale [Exercise] -Ambulation Distance (feet) -Ambulation Distance (meters) [Comments] -Home Oxygen Evaluation Comments [Charges] -Evaluation Charges O2 Evaluation Charge 08/17/23 08/17/23 08/17/23 11:22 11:23 11:24 Home O2 Evaluation [Oxygen] -Test Phase Exercise Exercise Exercise -Oxygen Delivery Room Air Room Air Room Air -Fraction of Inspired Oxygen (%) 21 21 21 [Pulse Oximetry] -Pulse Oximetry (90-100 %) 94 94 94 [Pulse Rate] -Pulse Rate (60-100 beats/min) 110 H 104 H 112 H [Evaluation] -Activity Tolerance Good Good Good -Rating of Perceived Dyspnea (PD) +3 Moderate +3 Moderate +3 Moderate Difficulty, But Difficulty, But Difficulty, But Can Continue Can Continue Can Continue -Rate of Perceived Exertion (PE) 13 Somewhat 13 Somewhat 13 Somewhat Query Text:Click the Protocol Button Hard Hard Hard to View the RPE Scale [Exercise] -Ambulation Distance (feet) -Ambulation Distance (meters) [Comments] -Home Oxygen Evaluation Comments [Charges] -Evaluation Charges 08/17/23 08/17/23 11:25 11:26 Home O2 Evaluation [Oxygen] -Test Phase Exercise Resting -Oxygen Delivery Room Air Room Air -Fraction of Inspired Oxygen (%) 21 21 [Pulse Oximetry] -Pulse Oximetry (90-100 %) 94 94 [Pulse Rate] -Pulse Rate (60-100 beats/min) 110 H 109 H [Evaluation] -Activity Tolerance Good Good -Rating of Perceived Dyspnea (PD) +3 Moderate +3 Moderate Difficulty, But Difficulty, But Can Continue Can Continue -Rate of Perceived Exertion (PE) 13 Somewhat 15 Hard Query Text:Click the Protocol Button Hard to View the RPE Scale [Exercise] -Ambulation Distance (feet) 100 -Ambulation Distance (meters) 30.47 [Comments] -Home Oxygen Evaluation Comments Patient had to stop to catch his breath multiple times, but did complete all 6 min. [Charges] -Evaluation Charges
== END 2023-08-17 11:14 | disposition home or self-care (01) ==
PROVIDERS: PCP Internal Medicine; Visit Provider Nurse Practitioner Family
DX: R09.02 Hypoxemia (principal)
CPT/HCPCS: 94618

== ENCOUNTER 2023-09-01 10:39 | Outpatient (CLI) | payer MEDICARE, MEDICAID, SELFPAY ==
--- NOTE | ~2023-09-01 | CT_ITS ---
EXAMINATION: CT lung screening DATE: 09/01/2023 11:07 INDICATION: Smoker history. Screening. Personal history of tobacco dependence. TECHNIQUE: Computed tomography (CT) of the chest was performed without intravenous contrast. The dose -length product was 227.33 mGy-cm. Automated exposure control and iterative reconstruction technique were employed. COMPARISON: CT dated 08/30/2022 FINDINGS: No thoracic lymphadenopathy. Heart size normal. There is atherosclerosis of the aorta and c oronary arteries. No significant pleural or pericardial effusion. Severe emphysema. New 6 mm left upp er lobe nodule. There is chronic interstitial lung disease peripherally. IMPRESSION: 1. Lung Rads category 4A, suspicious: recommend follow-up low dose CT chest in 3 months. Reviewed, dictated and finalized at location B.
== END 2023-09-01 10:40 | disposition home or self-care (01) ==
LOC: CHSIMG 10:41
PROVIDERS: PCP Internal Medicine; Visit Provider Nurse Practitioner Family
DX: Z12.2 Encounter for screening for malignant neoplasm of respiratory organs (principal); Z87.891 Personal history of nicotine dependence; R91.8 Other nonspecific abnormal finding of lung field
CPT/HCPCS: 71271

== ENCOUNTER 2023-09-16 10:16 | Outpatient (CLI) | payer MEDICARE, MEDICAID, SELFPAY ==
[2023-09-16 11:16] LABS: Rheumatoid Factor Screen Negative (Negative)
[2023-09-18 13:23] LABS: ANA Cascade Screen NEGATIVE (NEGATIVE)
[2023-09-19 15:28] LABS: Anti Cyclic Citrullinated Pept <16 UNITS
[2023-09-28 14:54] LABS: Aspergillus fumigatus NEGATIVE (NEGATIVE)
== END 2023-09-16 10:17 | disposition home or self-care (01) ==
LOC: CHSLAB 10:17
PROVIDERS: PCP Nurse Practitioner Family; Visit Provider Nurse Practitioner Family
DX: J84.9 Interstitial pulmonary disease, unspecified (principal)
CPT/HCPCS: 36415; 83516; 86038; 86200; 86225; 86235; 86430

== ENCOUNTER 2023-09-23 10:37 | Outpatient (CLI) | payer MEDICARE, MEDICAID, SELFPAY ==
[2023-09-23 10:50] VITALS: PULSE 107; O2SAT 90
[2023-09-23 10:51] VITALS: PULSE 110; O2SAT 91
[2023-09-23 10:52] VITALS: PULSE 111; O2SAT 90
[2023-09-23 10:53] VITALS: PULSE 115; O2SAT 91
[2023-09-23 10:54] VITALS: PULSE 115; O2SAT 90
--- NOTE | 2023-09-23 13:48 | SIXMINWLK ---
Six Minute Walk Test PFT: Six Minute Walk Start: 09/23/23 13:37 Freq: Status: Active Protocol: RPE Activity Type Activity Date Activity User E-sign Co-sign Detail Recorded Client Recorded Date Recorded By Document 09/23/23 10:50 RES [id number] 09/23/23 13:41 RES Document 09/23/23 10:51 RES [id number] 09/23/23 13:41 RES Document 09/23/23 10:53 RES [id number] 09/23/23 13:47 RES Document 09/23/23 10:54 RES [id number] 09/23/23 13:47 RES Document 09/23/23 10:52 RES [id number] 09/23/23 13:41 RES 09/23/23 09/23/23 09/23/23 10:50 10:51 10:53 Six Minute Walk Gender M M M Age [age] Race White White White Test Phase Resting Exercise Exercise Oxygen Delivery Room Air Room Air Room Air Fraction of Inspired Oxygen (%) 21 21 21 Pulse Oximetry (90-100 %) 90 91 91 Pulse Rate (60-100 beats/min) 107 H 110 H 115 H Activity Tolerance Good Good Fair Rating of Perceived Dyspnea (PD) +2 Mild, Some +2 Mild, Some +3 Moderate Difficulty, Difficulty, Difficulty, But Noticeable to Noticeable to Can Continue the Observer the Observer Rate of Perceived Exertion (1) Very Light (4-6) Moderate (4-6) Moderate Activity Activity Activity Number of Complete Laps (1 Lap = 100 Feet) Total Distance Walked (Feet) Total Distance Walked (Meters) Stopped/Paused During Testing - Enter Patient seems a Comment if Yes little SOB at rest Symptoms at End of Test Six Minute Walk Comments 09/23/23 09/23/23 10:54 10:52 Six Minute Walk Gender M M Age [age] Race White White Test Phase Exercise Exercise Oxygen Delivery Room Air Room Air Fraction of Inspired Oxygen (%) 21 21 Pulse Oximetry (90-100 %) 90 90 Pulse Rate (60-100 beats/min) 115 H 111 H Activity Tolerance Fair Fair Rating of Perceived Dyspnea (PD) +4 Severe +3 Moderate Difficulty, Difficulty, But Participant Can Continue Cannot Continue Rate of Perceived Exertion (4-6) Moderate (4-6) Moderate Activity Activity Number of Complete Laps (1 Lap = 100 2 Feet) Total Distance Walked (Feet) 200 Total Distance Walked (Meters) 60.95 Stopped/Paused During Testing - Enter Patient had to Patient did Comment if Yes stop due to hip stop a few pain and SOB. times to rest for about 30 seconds due to SOB Symptoms at End of Test Leg/Hip Pain Six Minute Walk Comments Patient stated he wears 4lpm at rest and 6lpm with activity at home.
--- NOTE | 2023-10-03 10:40 | WPDPFTINT ---
PFT Procedure Performed PFT Procedure Performed Spirometry with Pre/Post Bronchodilator Plethysmography (Lung Vol) Diffusing Cap (DLCO) Flow Vol Loop PFT Interpretation DOS: 09/23/2023 REQUESTING: Perry Bentley APRN REASON FOR TESTING: COPD PULMONARY FUNCTION TESTS The patient gave maximal effort, however was short of breath during testing. He used his nebulized medications prior to arrival as well as his rescue inhaler in the waiting room before PFT and 6 Minute Walk. Spirometry: The pre-bronchodilator FEV1 is 1.23 L, 41%, severely reduced. The pre-bronchodilator FVC is 3.56 L, 92%, normal. The FEV1/FVC ratio is 36%, severely reduced. After bronchodilator, the FEV1 is 1.17 L, 39%, -5%. The post bronchodilator FVC is 3.47 L, 90%, -2%. The FEV1/FVC ratio is 34%. Lung volumes: The total lung capacity is 7.10 L, 117%. The residual volume is 3.54 L, 152%, increased. The RV/TLC is 50%, increased. The FRC is 5.18 L, 163%, increased. Airway resistance is increased. Diffusion: DLCO is 9.6, 41%, severely reduced. The DLCO/VA is 1.9, 52%, moderately reduced. Flow volume loop: The flow volume loop shows severe coving of the expiratory limb consistent with airflow obstruction. IMPRESSION: This study shows extremely severe obstructive ventilatory impairment without response to bronchodilator, air trapping and severe diffusion impairment that slightly improves with correction for alveolar volume. The lack of improvement may have been due to receiving bronchodilator therapy immediately before testing. Compared to a prior study on 05/11/2022, overall same pattern. FEV1 was the same with a 17% improvement after bronchodilator. FVC was higher, 4.22 L compared to 3.56 L at baseline. There was a significant response to bronchodilator. The total lung capacity was 7.81 L, 128% predicted, higher in 2022, consistent with hyperinflation. Air trapping was the same. Diffusion impairment was not as severe, DLCO was 13.4, 58%. Yojana Granda MD
--- NOTE | 2023-10-03 11:01 | WPDSIXMINUTE ---
Six Minute Walk Procedure Procedure Performed Pulmonary Stress Test (6 min walk) Six Minute Walk Six Minute Walk: DATE OF SERVICE: 09/23/2023 REQUESTING: Perry Bentley APRN REASON FOR TESTING: COPD SIX MINUTE WALK This test was conducted per ATS guidelines. The initial saturation was 90%, and initial heart rate was 107 beats per minute. The patient walked with a few short stops to rest totalling 30 seconds. He completed 200 feet/60.9 meters. The test was stopped due to hip pain, back pain, and shortness of breath. The saturation at the end of testing was 90%, and the heart rate was 115 beats per minute. Total testing time was 4 minutes. IMPRESSION: This study indicates baseline saturation of 90% while on room air, poor exercise tolerance, and baseline tachycardia. The test was stopped early due to pain and shortness of breath. The patient stated that at home, he uses supplemental O2 4 L/min at rest and 6 L/min with exertion. This study does not shows that he qualifies for supplemental O2 at rest or with exertion. On Sep 22, he walked twice the distance in 4 minutes compared to testing August 17, 2023 walking 6 minutes. This shows that his exercise capacity has increased, still less that expected for his age. On a study 08/17/2023, the patient walked while breathing room air, saturation was 94%, heart rate 110-115 bpm, with a distance only 100 feet, 30 meters in 6 minutes with a few stops to catch his breath. Yojana Granda MD
== END 2023-09-23 10:38 | disposition home or self-care (01) ==
LOC: CHSCARD 10:38
PROVIDERS: PCP Internal Medicine; Visit Provider Nurse Practitioner Family
DX: J84.9 Interstitial pulmonary disease, unspecified (principal); J44.9 Chronic obstructive pulmonary disease, unspecified
CPT/HCPCS: 94060; 94618; 94726; 94729

== ENCOUNTER 2023-12-07 09:34 | Outpatient (CLI) | payer MEDICARE, MEDICAID, SELFPAY ==
--- NOTE | ~2023-12-07 | CT_ITS ---
CT Scan of the Chest without Contrast: Clinical Indication: Pulmonary nodule Technique: Contiguous sections were acquired throughout the chest without intravenous contrast. Dose reduction technique was used on this scan by utilizing automated exposure control and iterative recon struction technique. The dose-length product (DLP) was 241.53 mGy-cm. COMPARISON: 09/01/2023 Findings: There is no evidence of any significant mediastinal, hilar or axillary lymphadenopathy. The mediastin al soft tissues appear normal. There is no evidence of pleural or pericardial effusion. Severe emphysema present. Stable bibasilar subpleural reticulation and mild interstitial thickening. Stable 7 mm left upper lobe pulmonary nodule (axial image 39). Images through the upper abdomen reveal no abnormalities. Impression: Stable 7 mm left upper lobe pulmonary nodule. Stable severe emphysema with bibasilar mild chronic interstitial change. Reviewed, dictated and finalized at [facility]. Impression: Stable 7 mm left upper lobe pulmonary nodule. Stable severe emphysema with bibasilar mild chronic interstitial change.
== END 2023-12-07 09:35 | disposition home or self-care (01) ==
LOC: CHSIMG 09:35
PROVIDERS: PCP Internal Medicine; Visit Provider Nurse Practitioner Family
DX: R91.1 Solitary pulmonary nodule (principal); J43.9 Emphysema, unspecified
CPT/HCPCS: 71250

== ENCOUNTER 2023-12-19 14:00 | Outpatient (CLI) | payer MEDICARE, MEDICAID, SELFPAY ==
[2023-12-19 14:17] LABS: Basophils Absolute Auto 0.06 K/mm3 (0.00-0.10); Basophils Percent Auto 0.4 % (0.0-1.0); Eosinophils Absolute Auto 0.36 K/mm3 (0.02-0.50); Eosinophils Percent Auto 2.5 % (1.0-6.0); Hematocrit 38.9 % (37.0-46.0); Hemoglobin 12.7 g/dL (12.4-15.3); Immature Granulocyte Percent A 0.7 % (0.0-0.0); Lymphocytes Absolute Auto 0.51 K/mm3 (1.10-4.50); Lymphocytes Percent Auto 3.6 % (18.0-42.0); Mean Corpuscular HGB Conc 32.6 g/dL (32-36); Mean Corpuscular Hemoglobin 30.4 pg (27.0-31.0); Mean Corpuscular Volume 93.1 fL (78.0-102.0); Mean Platelet Volume 7.9 fl (8.7-11.0); Monocytes Absolute Auto 0.84 K/mm3 (0.10-0.90); Monocytes Percent Auto 5.9 % (2.0-11.0); Neutrophils Absolute Auto 12.35 K/mm3 (1.70-7.20); Neutrophils Percent Auto 86.9 % (50.0-70.0); Platelet Count Result 369 K/mm3 (150-420); Red Blood Count 4.18 M/mm3 (4.70-6.10); Red Cell Distribution Width 13.2 % (11.6-14.4); White Blood Count 14.2 K/mm3 (4.8-10.8)
[2023-12-19 14:19] LABS: Add Urine Microscopic? YES; Appearance Urine Clear (Clear); Bilirubin Urine Negative (Negative); Blood Urine Trace-intact (Negative); Glucose Urine UA Negative (Negative); Ketones Urine Negative (Negative); Leukocyte Esterase Ur 2+ (Negative); Nitrate Urine Negative (Negative); Protein Urine 2+ (Negative); Specific Grav Ur 1.015 (1.010-1.020); Urobilinogen Urine 0.2 mg/dL (0.2-1.0); pH Urine 6.5 (5.0-8.0)
[2023-12-19 14:41] LABS: Amphetamine Screen Urine Negative (Negative); Barbiturate Screen Urine Negative (Negative); Benzodiazepines Screen Urine Negative (Negative); Cannabinoid Screen Urine Negative (Negative); Cocaine Screen Urine Negative (Negative); Methadone Screen Urine Negative (Negative); Opiate Screen Urine Positive (Negative); Phencyclidine Screen Urine Negative (Negative)
[2023-12-19 14:42] LABS: Bacteria Urine Trace /hpf; Color Urine Yellow (Yellow); RBC Urine 0-2 /hpf (0-2); WBC Urine 21-30 /hpf (0-3)
[2023-12-19 15:12] LABS: Alanine Aminotransferase 25 U/L (16-63); Albumin Level 3.6 g/dL (3.4-5.0); Alkaline Phosphatase 99 U/L (46-116); Anion Gap 9 mmol/L (4-12); Aspartate Amino Transferase 17 U/L (15-37); Bilirubin,Total 0.3 mg/dL (0.00-1.00); Blood Urea Nitrogen 24 mg/dL (7-18); CRP 1.9 mg/dL (0.0-0.9); Calcium 10.2 mg/dL (8.5-10.1); Carbon Dioxide 31 mmol/L (21-32); Chloride 100 mmol/L (98-108); Estimated Glomerular Filt Rate 55; Glucose 134 mg/dL (70-99); Osmolality Calculated 296 mOsm/kg (285-295); Prostate Specific Antigen 4.5 ng/mL (< OR = 4.0); Sodium 140 mmol/L (136-145); Thyroid Stimulating Hormone 1.01 uIU/mL (0.36-3.74); Total Protein 7.6 g/dL (6.4-8.2)
== END 2023-12-19 14:01 | disposition home or self-care (01) ==
PROVIDERS: PCP Internal Medicine; Visit Provider Internal Medicine
DX: I25.10 Atherosclerotic heart disease of native coronary artery without angina pectoris (principal); J44.9 Chronic obstructive pulmonary disease, unspecified; R07.9 Chest pain, unspecified; Z12.5 Encounter for screening for malignant neoplasm of prostate
CPT/HCPCS: 36415; 80053; 80307; 81001; 84153; 84443; 85025; 86140; G0103

== ENCOUNTER 2023-12-20 14:45 | Outpatient (CLI) | payer MEDICARE, MEDICAID, SELFPAY ==
[2023-12-20 15:43] LABS: Add Urine Microscopic? YES; Appearance Urine Clear (Clear); Bilirubin Urine Negative (Negative); Blood Urine Negative (Negative); Color Urine Light Yellow (Yellow); Glucose Urine UA Negative (Negative); Ketones Urine Negative (Negative); Leukocyte Esterase Ur 1+ (Negative); Nitrate Urine Negative (Negative); Protein Urine 2+ (Negative); Specific Grav Ur 1.015 (1.010-1.020); Urobilinogen Urine 0.2 mg/dL (0.2-1.0); pH Urine 6.5 (5.0-8.0)
[2023-12-20 15:57] LABS: RBC Urine None seen /hpf (0-2)
[2023-12-20 15:58] LABS: Bacteria Urine Trace /hpf; Squamous Epithelial Cell Urine Few /hpf (Few)
== END 2023-12-20 14:46 | disposition home or self-care (01) ==
LOC: CHSLAB 14:47
PROVIDERS: PCP Internal Medicine; Visit Provider Internal Medicine
DX: N39.0 Urinary tract infection, site not specified (principal)
CPT/HCPCS: 81001; 87086; 87181

== ENCOUNTER 2024-04-09 13:41 | Outpatient (CLI) | payer MEDICARE, MEDICAID, SELFPAY ==
[2024-04-09 14:54] LABS: Phosphorus 2.6 mg/dL (2.6-4.7)
== END 2024-04-09 13:42 | disposition home or self-care (01) ==
PROVIDERS: PCP Internal Medicine; Visit Provider Internal Medicine
DX: E83.52 Hypercalcemia (principal)
CPT/HCPCS: 36415; 82330; 84100; 84155; 84165; 86334

== ENCOUNTER 2024-04-27 14:05 | Outpatient (CLI) | payer MEDICARE, MEDICAID, SELFPAY ==
[2024-04-27 14:23] LABS: Basophils Absolute Auto 0.04 K/mm3 (0.00-0.10); Basophils Percent Auto 0.2 % (0.0-1.0); Eosinophils Absolute Auto 0.13 K/mm3 (0.02-0.50); Eosinophils Percent Auto 0.8 % (1.0-6.0); Hematocrit 32.8 % (37.0-46.0); Hemoglobin 10.4 g/dL (12.4-15.3); Immature Granulocyte Percent A 0.6 % (0.0-0.0); Lymphocytes Absolute Auto 0.52 K/mm3 (1.10-4.50); Mean Corpuscular HGB Conc 31.7 g/dL (32-36); Mean Corpuscular Hemoglobin 30.4 pg (27.0-31.0); Mean Corpuscular Volume 95.9 fL (78.0-102.0); Mean Platelet Volume 8.4 fl (8.7-11.0); Monocytes Percent Auto 4.1 % (2.0-11.0); Neutrophils Absolute Auto 15.56 K/mm3 (1.70-7.20); Neutrophils Percent Auto 91.3 % (50.0-70.0); Platelet Count Result 306 K/mm3 (150-420); Red Blood Count 3.42 M/mm3 (4.70-6.10); Red Cell Distribution Width 13.4 % (11.6-14.4); White Blood Count 17.1 K/mm3 (4.8-10.8)
--- OUTSIDE RECORDS SUMMARY | 2024-04-27 14:25 | XMS_ITS | Clinical Summary ---
Author Organization [facility] Address [address] [place] [address] Care Team Providers Care Railroad Dining Car Stewardess Name Role Phone Chemo Fields MD Primary Care Provider [phone] Source Comments [facility],non-owned Affiliates and Associated Physician Practices is amultiple site organization consisting of ambulatory clinics and hospital sitesin [place], [place], [place] and [place]. This disclosure is being madepursuant to the Care Everywhere program and may not contain all information available regarding this patient. Last updated 17.[facility] Medications * Be aware that medications may not be up to date on this document. Alwaysverify current medications with the patient. Medication Sig Dispensed Refills Start Date End Date Status HYDROcodone-acetaminop hen (NORCO) 10-325 MG tablet Take 1 tablet by mouth. 02/16/2016 Active aspirin (ASPIRIN) 325 MG tablet Take 325 mg by mouth q4h PRN (Pain). 02/16/2016 Active fluticasone-salmeterol (ADVAIR DISKUS) 250-50 MCG/DOSE inhaler Take 1 puff by mouth DAILY. 1 11/21/2015 Active albuterol HFA (PROAIR HFA) 108 (90 BASE) MCG/ACT inhaler Inhale 2 puffs by mouth q6h PRN (Wheezing). 12/08/2015 Active omeprazole (PRILOSEC) 20 MG capsule Take 20 mg by mouth DAILY. 2 10/10/2015 Active mesalamine EC (LIALDA) 1.2 G tablet Take 4 tablets by mouth DAILY. 0 12/06/2015 Active Active Problems Problem Noted Date Diagnosed Date Chronic viral hepatitis C 02/20/2016 Overview (05/09/2017): [email or web address] 02/06/16 Fibroscan 9.5 kPa Chronic obstructive pulmonary disease 12/08/2015 Social History Tobacco Use Types Packs/Day Years Used Date Smoking Tobacco: Every Day Cigarettes Smokeless Tobacco: Never Alcohol Use Standard Drinks/Week Comments No 0 (1 standard drink = 0.6 oz pur e alcohol) Sex and Gender Information Value Date Recorded Sex Assigned at Not on file Gender Identity Not on file Sexual Orientation Not on file Last Filed Vital Signs Vital Sign Reading Time Taken Comments Blood Pressure 123/66 08/16/2016 1:50 PM CDT Pulse 78 08/16/2016 1:50 PM CDT Temperature 36.3 C (97.3 F) 12/08/2015 1:56 PM CDT Respiratory Rate 16 08/16/2016 1:50 PM CDT Oxygen Saturation 100% 12/08/2015 1:56 PM CDT Inhaled Oxygen Concentration - - Weight 88.5 kg (195 lb) 08/16/2016 1:50 PM CDT Height 172.7 cm (5' 8 ) 08/16/2016 1:50 PM CDT Body Mass Index 29.65 08/16/2016 1:50 PM CDT Plan of Treatment Health Maintenance Due Date Last Done Comments COLOGUARD (AGES 45-75) - COLON CA SCREENING 1957 COLON MONITORING 1957 COLONOSCOPY - COLON CA SCREENING 1957 CT COLONOGRAPHY - COLON CA SCREENING 1957 Colorectal Cancer Screening 1957 FIT - COLON CA SCREENING 1957 FLEX SIG - COLON CA SCREENING 1957 LIPID TESTING 1957 DTAP/TDAP/TD VACCINES (1 - Tdap) 1976 PNEUMOCOCCAL VACCINE 50+ (1 of 1 - PCV) 06/27/2007 ZOSTER VACCINE (1 of 2) 06/27/2007 AAA SCREENING 2022 COVID-19 VACCINE (1 - 2023- season) 2023 INFLUENZA VACCINE (#1) 2023 DEPRESSION SCREENING 02/08/2024 Respiratory Syncytial Virus (RSV) Vaccine Pt: or over 60 yrs (1 - 1-dose 75+ series) 2032 HEPATITIS C SCREENING Completed 08/16/2016 , 08/16/2016, 08/14/2016, Additional history exists HEPATITIS B VACCINE Aged Out No longe r eligible based on patient's age to complete this topic HIB VACCINE Aged Out No longer eligi ble based on patient's age to complete this topic HPV VACCINE Aged Out No longer eligi ble based on patient's age to complete this topic MENINGOCOCCAL (Group B) VACCINE SHARED DECISION-MAKING Aged Out No longer eligible based on patient's age to complete this topic MENINGOCOCCAL GROUPS A/C/Y/W VACCINE Aged Out No longer eligible based on patient's age to complete this topic Procedures Procedure Name Priority Date/Time Associated Diagnosis Comments HEPATITIS C REAL-TIME PCR QUANTASURE Routine 08/14/2016 9:06 AM CDT from Last 3 Months or Most Recently Relevant to Health Maintenance Results * HEPATITIS C REAL-TIME PCR QUANTASURE (08/14/2016 9:06 AM CDT) Hepatitis C Virus RNA PCR Quantitative <15 NOT DETECTED <15 IU/mL [facility]) Hepatitis C Virus RNA Log IU/mL <1.18 NOT DETECTED <1.18 Log IU/mL [facility] See Note [facility] Comment: The analytical performance characteristics of this assay have been determined by [facility]. The modifications have not been cleared or approved by the FDA. This assay has been validated pursuant to the CLIA regulations and is used for clinical purposes. This test was performed using the AARON(R)AmpliPrep/ AARON(R)TaqMan(R)HCV Test,v2.0. For more information on this test, go to: http://education.[employer].Spinal Modulation/faq/UNQ97z8 (This link is being provided for informational/ educational purposes only.) REPORT COMMENT: IS PATIENT ON HEPARIN, ARGATROBAN OR DABIGATRAN?->N Test Performed at: [facility] [address] [place] [address] KALYANI SELLERS DO,MPH 08/14/2016 9:06 AM CDT 08/14/2016 9:06 AM CDT Sadia Perez GREEN WARE CASTER-SUPERVISOR [facility] G[facility] ORDERABLES [facility]) from Last 3 Months or Most Recently Relevant to Health Maintenance Care Teams [employer] Dining [employer] Stewardess Relationship Specialty Start Date End Date Chemo Fields MD [address] [facility] [address] [place] [address] PCP - General 06/16/15
--- OUTSIDE RECORDS SUMMARY | 2024-04-27 14:25 | XMS_ITS | Clinical Summary ---
Author Organization [facility] Address [address] [place] [address] Care Team Providers Care Compound Mixer Name Role Phone Franklin German MD Primary Care Provider [phone] Allergies No known active allergies Medications omeprazole (PriLOSEC) 20 mg capsule TK 1 C PO QD 30 MIN TO 1 HOUR AC 1 7 Active mesalamine (LIALDA) 1.2 gram EC tablet TK 4 TS PO QD 2 7 Active fluticasone-brianna meterol (ADVAIR DISKUS) 250-50 mcg/dose diskus inhalerIndicati ons:Bronchospas m Prevention with COPD Inhale 1 puff 2 (two) times a day. Rinse mouth with water after use to reduce aftertaste and incidence of candidiasis. Do not swallow. 60 each 1 7 Active albuterol HFA (PROVENTIL HFA,VENTOLIN HFA) 90 mcg/actuation inhalerIndicati ons:Bronchospas m Prevention Inhale 2 puffs every 6 (six) hours as needed for wheezing. 1 Inhaler 7 Active montelukast (SINGULAIR) 10 mg tablet Take 1 tablet (10 mg total) by mouth nightly Active famotidine (PEPCID) 40 mg tablet Take 1 tablet (40 mg total) by mouth nightly Active budesonide-form oteroL (SYMBICORT) 160-4.5 mcg/actuation inhaler Inhale 2 puffs 2 (two) times a day Rinse mouth with water after use. Do not swallow. Active tiotropium (SPIRIVA) 18 mcg per inhalation capsule Place 1 puff (1 capsule total) into inhaler and inhale daily Active verapamil SR (CALAN SR) 120 mg CR tablet Take 1 tablet (120 mg total) by mouth daily Active pravastatin (PRAVACHOL) 20 mg tablet Take 1 tablet (20 mg total) by mouth daily Active aspirin 81 mg enteric coated tablet Take 1 tablet (81 mg total) by mouth daily Active losartan (COZAAR) 25 mg tablet Take 1 tablet (25 mg total) by mouth daily Active HYDROcodone-zach taminophen (NORCO) 10-325 mg per tabletIndicatio ns:Pain Take 1 tablet by mouth every 6 (six) hours as needed for pain Active fluticasone propionate (FLONASE) 50 mcg/actuation nasal spray Administer 1 spray into each nostril daily Active fexofenadine (NEREIDA) 180 mg tablet Take 1 tablet (180 mg total) by mouth daily Active predniSONE (DELTASONE) 5 mg tablet Take 1 tablet (5 mg) by mouth daily Active cholecalciferol (VITAMIN D-3) 2000 unit tablet Take 0.5 tablets (1,000 Units total) by mouth daily Active nicotine (NICODERM CQ) [address] 1 patch on the skin daily 30 patch 3 Active clopidogreL (PLAVIX) 75 mg tablet TAKE 1 TABLET(75 MG) BY MOUTH DAILY 30 tablet 4 Active Hospital, Clinic, or Other Facility Administered Medication Ordered Dose Route Frequency Start Date End Date Status fluticasone-salmetero l (ADVAIR DISKUS) 100-50 mcg/dose diskus inhaler 1 puff 1 puff INHAL Daily (palm gatherer) 01/24/2017 Active omeprazole (PriLOSEC) capsule 20 mgIndications:Heartbu rn 20 mg oral Daily 01/24/2017 Active Active Problems Problem Noted Date Diagnosed Date CAD S/P percutaneous coronary angioplasty 2022 Chest pain 08/04/2022 Acute hypoxemic respiratory failure 01/24/2017 Bilateral pneumonia 01/24/2017 MARCO on CPAP 01/24/2017 Tobacco abuse 01/24/2017 Inflammatory bowel disease 01/24/2017 Pneumonia of left lower lobe due to Streptococcus pneumoniae COPD exacerbation Medical History Medical History Date Comments COPD (chronic obstructive pulmonary disease) (HC C) Diverticulitis Colitis Sleep apnea Social History Tobacco Use Types Packs/Day Years Used Date Smoking Tobacco: Every Day Cigarettes 0.8 15 Smokeless Tobacco: Never Tobacco Cessation:Ready to Q uit: Not Asked; Counseling Given: Not Answered AUDIT-C Answer Date Recorded Frequency of Alcohol Consumption Not on file 09/02/2022 Q2: How many drinks containi ng alcohol do you have on a typical day when you are drinking? 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 Gender Identity Not on file Sexual Orientation Not on file Obstetrics History Last Filed Vital Signs Vital Sign Reading Time Taken Comments Blood Pressure 169/80 09/03/2022 7:47 AM CDT Pulse 101 09/03/2022 8:00 AM CDT Temperature 36.3 C (97.4 F) 09/03/2022 7:47 AM CDT Respiratory Rate 18 09/03/2022 7:47 AM CDT Oxygen Saturation 98% 09/03/2022 7:47 AM CDT Inhaled Oxygen Concentration - - Weight 92.1 kg (203 lb) 09/02/2022 9:05 AM CDT Height 172.7 cm (5' 8 ) 09/02/2022 9:05 AM CDT Body Mass Index 30.87 09/02/2022 9:05 AM CDT Plan of Treatment Health Maintenance Due Date Last Done Comments Colon Cancer Screening-Colonoscopy 1955 Depression Screening 1955 Hepatitis C Screening 1955 Prostate Cancer Screening-PSA 1957 DTaP/Tdap/Td Vaccine (1 - Tdap) 1968 Zoster Vaccine (1 of 2) 06/27/2007 Pneumococcal vaccine 65+ (2 of 2 - PCV) 07/24/2016 0 07/25/2015 Abdominal Aortic Aneurysm (AAA) Screen 2022 Well Visit 65+ 2022 Fall Risk Assessment 09/04/2023 09/03/2022 Covid-19 Vaccine (3 - 2023-25 season) 2023, 06/06/2020 Influenza Vaccine (#1) 2023 11/06/2015 Hepatitis B Screening Completed 07/25/2015, 016 Medical Devices Implanted Type Area Wetland Scientist Device Identifier Shelf Expiration Date Model / Serial / Lot Medtronic Card Vasc Surgery 3.0 X 15mm Zeeshan [place] Rx Coronary Stent [id number] - [id number] Implanted:Qty: 1 on 09/02/2022 by Yoav Longoria MD at [facility] Medtronic [facility] Vasc Surgery 04/11/2025 [id number] / / [id number] Medtronic [facility] Vas Surgery 3.5 X 22mm Zeeshan Baldwin Rx Coronary Stent [id number] - [id number] Implanted:Qty: 1 on 09/02/2022 by Yoav Longoria MD at [facility] Medtronic [facility] Vasc Surgery 06/03/2025 [id number] / / [id number] [facility] [employer] [facility] Angio-Seal Vip 6fr Closere Device [id number] - [id number] Implanted:Qty: 1 on 09/02/2022 by Yoav Longoria MD at [facility] [employer] [facility] 03/09/2023 [id number] / / [id number] Explanted Type Area Wetland Scientist Device Identifier Shelf Expiration Date Model / Serial / Lot Medtronic [facility] Vasc Surgery 3.0 X 15mm [place] Rx Coronary Stent [id number] - [id number] [facility] 04/02/2025 [id number] / / [id number] Insurance [facility] MEDICARE ADVANTAGE IDPA [facility] MEDICARE ADVANTAGE IDPA Advance Directives For more information, please contact: [phone] * Full Code (Latest Code Status on File) Date Activated Date Inactivated Comments 01/23/2017 9:16 PM 01/26/2017 9:55 PM Care Teams Compound Mixer Relationship Specialty Start Date End Date Franklin German MD PCP - General Internal Medicine 07/07/22
--- OUTSIDE RECORDS SUMMARY | 2024-04-27 14:25 | XMS_ITS | Clinical Summary ---
Author Organization [facility] Address [facility] [place] [address] Care Team Providers Care Machine Etcher Name Role Phone Franklin German MD Primary Care Provider [phone] Tio Eliudeaston Berry DO Unavailable Yojana Granda MD Unavailable [phone] Allergies No known active allergies Medications triamcinolone (KENALOG) 0.5 % cream APPLY THIN LAYER TOPICALLY TO THE AFFECTED AREA TWICE DAILY 3 Active SPIRIVA HANDIHALER 18 MCG inhalation capsule 3 Active montelukast (SINGULAIR) 10 MG tablet 3 Active ipratropium-alb uterol (DUONEB) 0.5-2.5 (3) MG/3ML Solution USE 3 ML VIA NEBULIZER FOUR TIMES DAILY NEEDED FOR SHORTNESS OF BREATH OR WHEEZING 3 Active SYMBICORT 80-4.5 MCG/ACT inhaler inhale 2 puffs by mouth twice daily in the morning and in the evening 3 Active famotidine (PEPCID) 40 MG tablet 3 Active Vitamin D3 (CHOLECALCIFERO L) 50 mcg tablet Take 0.5 tablets (25 mcg total) by mouth daily. Active verapamil (CALAN SR) 120 MG ER tablet Take 1 tablet (120 mg total) by mouth 2 (two) times daily. Active predniSONE (DELTASONE) 5 mg tablet Take 1 tablet (5 mg total) by mouth daily. Active HYDROcodone-zach taminophen (NORCO) 10-325 MG tablet Take 1 tablet by mouth 2 (two) times a day. 3 Active fluticasone propionate (FLONASE) 50 MCG/ACT nasal spray 2 sprays by Each Nostril route daily. Active losartan (COZAAR) 25 MG tablet Take 1 tablet (25 mg total) by mouth daily. Active aspirin 81 MG chewable tablet Chew 1 tablet (81 mg total) by mouth daily. Active Active Problems Problem Noted Date Diagnosed Date Primary osteoarthritis of left knee 06/17/2022 Primary osteoarthritis of right knee 06/17/2022 Post-traumatic osteoarthritis of left hip 2022 Social History Tobacco Use Types Packs/Day Years Used Date Smoking Tobacco: Every Day Cigarettes Smokeless Tobacco: Never Tobacco Cessation:Ready to Q uit: Not Asked; Counseling Given: Not Answered Alcohol Use Standard Drinks/Week Comments Yes 0 (1 standard drink = 0.6 oz pur e alcohol) Sex and Gender Information Value Date Recorded Sex Assigned at Not on file Legal Sex Male 1:31 PM CDT Gender Identity Not on file Sexual Orientation Not on file Last Filed Vital Signs Vital Sign Reading Time Taken Comments Blood Pressure - - Pulse - - Temperature - - Respiratory Rate - - Oxygen Saturation - - Inhaled Oxygen Concentration - - Weight 88.5 kg (195 lb) 09/28/2022 10:07 AM CDT Height 172.7 cm (5' 8 ) 09/28/2022 10:07 AM CDT Body Mass Index 29.65 09/28/2022 10:07 AM CDT Plan of Treatment Health Maintenance Due Date Last Done Comments Colorectal Cancer Screening Colonoscopy (10 Years) 1957 Hepatitis C 06/27/1975 DTaP, Tdap and Td Vaccines ( 1 - Tdap) 1976 Zoster Vaccines (1 of 2) 06/27/2007 Pneumococcal Vaccine: 65+ Years (2 of 2 - PCV) 07/24/2016 07/25/2015 Annual Medicare Wellness Visit 2022 COVID-19 Vaccine (3 - 2023-2 5 season) 2023 07/04/2020, 06/06/2020 Influenza Adult (#1) 2023 11/06/2015 RSV Immunization or 60+ Years (1 - 1-dose 75+ series) 2032 Meningococcal B Vaccine Aged Out No l onger eligible based on patient's age to complete this topic Meningococcal Vaccine Aged Out No michael chito eligible based on patient's age to complete this topic RSV Immunizations Under 20 Months Aged Out No longer eligible b ased on patient's age to complete this topic Insurance MEDICAID [facility] Care Teams Machine Etcher Relationship Specialty Start Date End Date Franklin German MD [address] [place] [address] PCP - General INTERNAL MEDICINE 04/21/22 Eliud Kinsey DO [address] [place] [address] INTERNAL MEDICINE 06/17/22 Yojana Granda MD [address], [address] [place] [address] CRITICAL CARE MEDICINE 06/17/22
--- OUTSIDE RECORDS SUMMARY | 2024-04-27 14:25 | XMS_ITS | Referral Summary ---
Author Organization [facility] Address [address] [place] [address] Care Team Providers Care Rail Car Repairer Name Role Phone Franklin German MD Primary Care Provider [phone] Allergies No known active allergies Medications omeprazole [...] inhaler 1 puff 1 puff INHAL Daily (respite provider) 01/24/2017 Active omeprazole (PriLOSEC) capsule 20 mgIndications:Heartbu rn 20 mg oral Daily 01/24/2017 Active Active Problems Problem Noted Date Diagnosed Date CAD S/P percutaneous coronary angioplasty 2022 Chest pain 08/04/2022 Acute hypoxemic respiratory failure 01/24/2017 Bilateral pneumonia 01/24/2017 MARCO on CPAP 01/24/2017 Tobacco abuse 01/24/2017 Inflammatory bowel disease 01/24/2017 Pneumonia of left lower lobe due to Streptococcus pneumoniae COPD exacerbation Social History Tobacco Use Types Packs/Day Years [...] on file 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 Gender Identity Not on file Sexual Orientation [...] 09/02/2022 9:05 AM CDT Plan of Treatment Not on file Medical Devices Implanted Type Area Chronic Disease Manager Device Identifier Shelf Expiration Date Model / Serial / Lot Medtronic [facility] Surgery 3.0 X 15mm [place] Rx Coronary Stent [id number] - [id number] Implanted:Qty: 1 on 09/02[facility] 04/11/2025 [id number] / / [id number] Medtronic [facility] Surgery 3.5 X 22mm Zeeshan [place] Rx Coronary Stent [id number] - [id number] Implanted:Qty: 1 on 09/02/2022 [facility] Surgery 06/03/2025 [id number] / / [id number] [facility] Angio-Seal Vip 6fr Closere Device [id number] - [id number] Implanted:Qty: 1 on 09/02/2022 by Yoav Longoria MD at [facility] [employer] 03/09/2023 [id number] / / [id number] Explanted Type Area Chronic Disease Manager Device Identifier Shelf Expiration Date Model / Serial / Lot Medtronic Card Vasc Surgery 3.0 X 15mm Zeeshan [place] Rx Coronary Stent [id number] - [id number] Explanted:Qty[facility] 04/02/2025 [id number] / / [id number] Insurance [facility] MEDICARE ADVANTAGE [facility] MEDIC[facility] Address: [address] [address] [place] [address] [facility]ARE [facility] ADVANTAGE IDPA Advance Directives For more information, please contact: [phone] * Full Code (Latest Code Status on File) Date Activated Date Inactivated Comments 01/23/2017 9:16 PM 01/26/2017 9:55 PM Care Teams Rail Car Repairer Relationship Specialty Start Date End Date Franklin German MD PCP - General Internal Medicine 07/07/22
== END 2024-04-27 14:06 | disposition home or self-care (01) ==
LOC: CHSLAB 14:06
PROVIDERS: PCP Internal Medicine; Visit Provider Internal Medicine
DX: D64.9 Anemia, unspecified (principal)
CPT/HCPCS: 36415; 85025

== ENCOUNTER 2024-05-01 12:15 | Observation (INO) | payer MEDICARE, MEDICAID, SELFPAY ==
[2024-05-01] VITALS (26 sets, daily range): BP systolic 94–144; BP diastolic 67–104; PULSE 93–111; RESP 14–35; TEMP 36.3–37.1; O2SAT 96–100; BMI 33.6
--- NOTE | ~2024-05-01 | XR_ITS ---
XR chest 1V portable Ordering provider: Mauricio Joseph MD History: 68 years Male with . sob,COPD,RT LOWER POSTERIOR BACK PAIN . Comparison: 04/22/2023 FINDINGS: MEDIASTINUM: The cardiac silhouette is not enlarged. LUNGS: No infiltrates, effusions or pneumothorax. Opacity seen in the right mid zone which is most likely summation shadow. A repeat exam in 3 months i s advised. OTHER: No free air under the diaphragm. IMPRESSION: No acute cardiopulmonary pathology. Reviewed, dictated and finalized at location A.
--- NOTE | ~2024-05-01 | CT_ITS ---
EXAMINATION: CT abdomen pelvis wo con DATE: 05/02/2024 09:51 INDICATION: Diverticulitis. Abdominal pain. TECHNIQUE: Computed tomography (CT) of the abdomen and pelvis was performed without intravenous contr ast. Automated exposure control and iterative reconstruction technique were employed. The dose-length product was 1113.35 mGy-cm. COMPARISON: None. FINDINGS: The visualized portions of the lung bases demonstrate emphysema and chronic interstitial maryellen ng disease. No pleural effusion. The heart size is normal. No pericardial effusion. The liver, gallbl adder, spleen, pancreas, adrenal glands are normal. There are cysts in the kidneys measuring up to 2. 8 cm on the left. There are multiple masses in the kidneys measuring soft tissue attenuation measurin g up to 3.5 cm on the left. There is a 2 mm stone in right kidney. There are parenchymal calcificatio ns in the kidneys. There is a left inguinal hernia containing fat. There is diverticulosis of the col on without evidence of diverticulitis. The appendix is normal. There are no dilated loops of bowel. T here are no pathologically enlarged lymph nodes. There is no free intraperitoneal fluid. There is mil d lumbar spondylosis. IMPRESSION: 1. Left inguinal hernia containing fat. 2. Bilateral kidney masses, which may be hemorrhagic cysts or less likely renal cell carcinoma. Abdom en CT or MRI without and with contrast is recommended. Reviewed, dictated and finalized at location A. IMPRESSION: 1. Left inguinal hernia containing fat. 2. Bilateral kidney masses, which may be hemorrhagic cysts or less likely renal cell carcinoma. Abdomen CT or MRI without and with contrast is recommended.
--- NOTE | ~2024-05-01 | CT_ITS ---
CTA chest PE protocol Ordering provider: Mauricio Joseph MD History: 68 years Male with . elev dimer/sob,COUGH,COPD,SMOKER . Comparison: None. Technique: CT angiogram chest was performed following timed intravenous injection of contrast. Thin s lice axial images and reformatted coronal images were obtained. Three dimensional reformatted images of the chest were also obtained using a [employer] workstation. . Automated exposure control and iterati ve reconstruction technique were employed. The dose-length product was 887.00 mGy-cm. 100 mL Omnipaqu e 350 was given IV. Findings: PULMONARY ARTERIES: No pulmonary embolus. VISUALIZED THORACIC INLET: Normal. MEDIASTINUM: Aorta/coronary arteries: Mild atheromatous disease. Heart/other: The heart is not enlarged. Lymph nodes: No mediastinal or hilar adenopathy. LUNGS: 6 mm nodule is seen in the left upper lobe. No pulmonary masses. No infiltrates or effusions. No pneu mothorax. Emphysematous changes of the lungs with multiple bullae. VISUALIZED UPPER ABDOMEN: Hyperdense areas seen in the right kidney region may be a mass or hemorrhag ic cyst. Ultrasound evaluation advised. Left kidney cysts are also noted with focus of parenchymal ca lcification. Otherwise, the visualized upper abdomen is normal. MUSCULOSKELETAL: Soft tissues: The superficial soft tissues are normal. Bones: Age appropriate degenerative changes of the spine. IMPRESSION: 1. No pulmonary embolism. 2. Emphysematous changes of the lungs. 3. Nodule in the left upper lobe measuring 6 mm. Follow-up CT is advised in 6 months. 4. Hyperdense area in the right kidney upper pole. Further evaluation advised. Reviewed, dictated and finalized at location A.
--- NOTE | 2024-05-01 12:16 | ED_ITS ---
HPI - SOB/Dyspnea General Chief Complaint: Shortness of Breath/Dyspnea Stated Complaint: sob Time Seen by Provider: 05/01/24 12:15 Source: patient Mode of arrival: ambulatory Limitations: no limitations History of Present Illness HPI Narrative: Patient is a 68-year-old male with shortness of breath and left mid back pain for the past few days. He has a baseline of 4 L nasal cannula oxygen and severe COPD. He always has difficulty having conversation and walking due to shortness of breath. He recently had diverticulitis and was on Levaquin and Flagyl. He had some anemia. He was bleeding with the diverticulitis. Typically he gets like this when there is pneumonia he has some generalized weakness. MD elicited complaint: shortness of breath and cough Pertinent past history: COPD, pneumonia and other ( coronary artery disease) Onset (ago): day(s) ( Three) Context: recent illness and smoke/fume exposure ( patient still smokes daily) Timing: constant and progressively worsening Severity: similar to previous episodes Exacerbating factors: exertion, movement, coughing, talking, smoke and deep breaths Relieving factors: oxygen, rest and medication Known history of: COPD and recurrent pneumonia Treatment prior to arrival: oxygen and bronchodilator Related Data Home oxygen amount: 4 liters Home Medications ?Medication ?Instructions ?Recorded ?Confirmed ?Last Taken ?Type famotidine 40 mg tablet 40 mg PO HS 06/21/22 03/15/24 07/27/22 History verapamil 120 mg 24 hr 120 mg PO DAILY 06/21/22 03/15/24 07/28/22 History capsule,extended release aspirin 81 mg tablet,delayed 81 mg PO DAILY 07/14/22 03/15/24 07/28/22 History release cholecalciferol (vitamin D3) 10 25 mcg PO HS 07/15/22 03/15/24 07/27/22 History mcg (400 unit) capsule fluticasone propionate 50 2 spray intranasal BID 07/27/22 03/15/24 07/28/22 History mcg/actuation nasal spray,suspension hydrocodone 10 mg-acetaminophen 1 tablet PO HS 07/27/22 03/15/24 07/27/22 History 325 mg tablet prednisone 5 mg tablet 5 mg PO DAILY 07/27/22 03/15/24 07/28/22 History theophylline 400 mg 400 mg PO Q24H 04/22/23 03/15/24 Unknown History tablet,extended release 24 hr ofloxacin 0.3 % eye drops 1 drp EACH EYE DAILY 09/16/23 03/15/24 Unknown History Allergies Allergy/AdvReac Type Severity Reaction Status Date / Time latex AdvReac Rash Verified 03/15/24 14:17 Sodium pentathol AdvReac emesis Uncoded 09/16/23 09:01 Review of Systems 2 Review of Systems: All systems reviewed & are unremarkable except as noted in HPI and below Constitutional: Constitutional: Reports no additional constitutional complaints Eyes: Eyes: Reports no additional eye complaints ENT: Reports system reviewed and no additional complaints, except as documented Cardiovascular: Cardiovascular: Reports no additional cardiovascular complaints Respiratory: Respiratory: Reports no additional respiratory complaints Gastrointestinal: Gastrointestinal: Reports no additional gastrointestinal complaints Genitourinary: Genitourinary: Reports no additional male genitourinary complaints Musculoskeletal: Musculoskeletal: Reports no additional musculoskeletal complaints Integumentary/Breasts: Skin/Breast: Reports system reviewed and no additional complaints, except as docu Neurologic: Reports system reviewed and no additional complaints, except as documented Psychiatric: Psychiatric: Reports no additional psychiatric complaints Endocrine: Endocrine: Reports no additional endocrine complaints Hematologic/Lymphatic: Hematologic/Lymphatic: Reports no additional hematologic/lymphatic complaints Allergic/Immunologic: Allergic/Immunologic: Reports no additional allergic/immunologic complaints PMFSH Family History Family History Mother Cerebrovascular accident Patient's mother is Father Family history of emphysema Patient's father is Social History Social History Smoking packs per day: 1 Smoking cigarettes per day: 20.0 Years smoked: 56 Smoking pack-years: 56.00 Smoking status: Current every day smoker Tobacco type: cigarettes Second hand tobacco smoke exposure: Yes Additional smoking assessment comments: used to smoke up to 3 ppd, decreased recently to 2 then 1 ppd. Alcohol intake: former Substance use: current Substance use type: marijuana Living arrangements: with friend(s) Spiritual care concerns: No Exam 2 Const: General: ill appearing Nutritional Appearance: well nourished O rientation/consciousness: patient oriented x3 Limitations: no limitations Other: patient claims this is his baseline difficulty with breathing when he walks and talks HENMT: Head: normal to inspection Ears: external ears normal F zach/Nose/Sinus: Normal external nose present Eyes: Conjunctivae: conjunctivae normal Pupils: Equal, round and reactive pupils present EOM: EOMs intact bilaterally Neck: Neck: normal visual inspection Chest: Chest palpation & inspection: normal inspection of the chest Resp: Effort & Inspection: abnormal respiratory effort, labored, retractions, tachypneic and uses accessory muscles Auscultation: not clear to auscultation bilaterally, crackles, no rales, rhonchi, wheezes, breath sounds present and diminished lung sounds Cardio: Rate: tachycardic Rhythm: regular rhythm Heart sounds: no murmurs GI: Inspection: non-distended GI Palp: Yes Soft to palpation, No Tenderness to palpation present (GI) and No Guarding due to palpation present (GI) A uscultation: normal bowel sounds : General: Yes bladder normal to palpation Back/Spine/Pelvis: Back: no CVA tenderness Skin: General skin exam: No normal color Rashes: no rashes Wounds: no wounds Other: patient has a bluish /elvis color Neuro: General: patient oriented x3 Cranial nerves: Yes Nystagmus not present Speech: normal speech Gait exam (Neuro): Normal gait present Extrem: General: normal to inspection Psych: Mental Status: mental status grossly normal Affect: normal affect Attitude: cooperative Course Vital Signs Vital signs: Vital Signs Temperature 36.3 C L 05/01/24 12:15 Pulse Rate 106 H 05/01/24 12:15 Respiratory Rate 24 H 05/01/24 12:15 Blood Pressure 121/100 H 05/01/24 12:15 Pulse Oximetry 100 05/01/24 12:15 Oxygen Delivery Nasal Cannula 05/01/24 12:15 Oxygen Flow Rate 6 05/01/24 12:15 Temperature 36.3 C L 05/01/24 12:15 Pulse Rate 102 H 05/01/24 12:46 Respiratory Rate 16 05/01/24 12:46 Blood Pressure 121/100 H 05/01/24 12:15 Pulse Oximetry 96 05/01/24 12:46 Oxygen Delivery Nasal Cannula 05/01/24 12:25 Oxygen Flow Rate 4 05/01/24 12:25 MDM - SOB/Dyspnea MDM Narrative Medical decision making narrative: patient is a 68-year-old male with severe COPD and here with shortness of breath and left midback pain which typically means pneumonia for his history. We will do a complete pulmonary cardiac workup at this time and treat accordingly. Lab Data Attestation: I reviewed the patient's lab results. 05/01/24 12:35 05/01/24 12:35 Labs: Lab Results 05/01/24 05/01/24 Range/Units 12:26 12:35 WBC 19.7 H (4.8-10.8) K/mm3 RBC 3.71 L (4.70-6.10) M/mm3 Hgb 11.0 L (12.4-15.3) g/dL Hct 35.2 L (37.0-46.0) % MCV 94.9 (78.0-102.0) fL MCH 29.6 (27.0-31.0) pg MCHC 31.3 L (32-36) g/dL RDW 13.5 (11.6-14.4) % Plt Count 367 (150-420) K/mm3 MPV 8.1 L (8.7-11.0) fl Immature Gran % (Auto) 0.6 H (0.0-0.0) % Neut % (Auto) 92.2 H (50.0-70.0) % Lymph % (Auto) 2.0 L (18.0-42.0) % [place] % (Auto) 4.4 (2.0-11.0) % Eos % (Auto) 0.5 L (1.0-6.0) % Baso % (Auto) 0.3 (0.0-1.0) % Lymph # (Auto) 0.40 L (1.10-4.50) K/mm3 [place] # (Auto) 0.87 (0.10-0.90) K/mm3 Eos # (Auto) 0.10 (0.02-0.50) K/mm3 Baso # (Auto) 0.06 (0.00-0.10) K/mm3 Abs Immat Gran (auto) 0.12 H (0.00-0.00) K/mm3 Absolute Neuts (auto) 18.19 H (1.70-7.20) K/mm3 Absolute Nucleated RBC 0.00 (0.00-0.00) K/mm3 Nucleated RBC % 0.0 (0-0.0) % PT 10.3 (9.50-12.1) Seconds INR 0.9 APTT 30.0 (23.9-30.70) Sec D-Dimer 0.68 H* (0.19-0.50) mg/L Sodium 137 (136-145) mmol/L Potassium 3.8 (3.5-5.1) mmol/L Chloride 96 L (98-108) mmol/L Carbon Dioxide 31 (21-32) mmol/L Anion Gap 10 (4-12) mmol/L BUN 16 (7-18) mg/dL Creatinine 1.55 H (0.70-1.30) mg/dL Estim Creat Clear Calc 48 ml/min Estimated GFR 45 L (59 - ) Glucose 107 H (70-99) mg/dL Calculated Osmolality 285 (285-295) mOsm/kg Lactic Acid 2.7 H (0.4-2.0) mmol/L Calcium 9.8 (8.5-10.1) mg/dL Total Bilirubin 0.3 (0.00-1.00) mg/dL AST 17 (15-37) U/L ALT 17 (16-63) U/L Alkaline Phosphatase 84 (46-116) U/L Troponin I 19.4 (0.00-60.4) ng/L NT-Pro-B Natriuret Pep 217 H (0-125) pg/mL Total Protein 8.1 (6.4-8.2) g/dL Albumin 3.7 (3.4-5.0) g/dL Influenza A (RT-PCR) Negative (Negative) Influenza B (RT-PCR) Negative (Negative) RSV (RT-PCR) Negative (Negative) SARS-CoV-2 RNA (RT-PCR) Negative (Negative) ABG Data ABG results: 05/01/24 12:35 Puncture Site Right radial ABG pH 7.45 ABG pCO2 37.0 ABG pO2 84.2 ABG HCO3 25.4 ABG O2 Saturation 96.4 ABG Base Excess 1.6 Oxyhemoglobin 95.0 O2 Delivery Device Nasal cannula O2 Liters/Min 4.0 Attestation: I personally reviewed and interpreted this ABG as follows: Interpretation: Compensated/normal Imaging Data Attestation: I personally reviewed and interpreted this imaging study as follows: Radiologist's impression: chest x-ray is negative for acute process CTA of the chest shows IMPRESSION: 1. No pulmonary embolism. 2. Emphysematous changes of the lungs. 3. Nodule in the left upper lobe measuring 6 mm. Follow-up CT is advised in 6 months. 4. Hyperdense area in the right kidney upper pole. Further evaluation advised. ECG Data EKG #1: Attestation: I personally reviewed and interpreted this ECG as follows: ECG completion date: 05/01/24 ECG completion time: 12:59 EKG Interpretation: normal rate, sinus rhythm, no ectopy, non-specific ST changes, widened QRS, RBBB, normal QT and NL axis Discharge Plan Discharge Clinical Impression: Acute exacerbation of chronic obstructive pulmonary disease Sepsis Qualifiers: Sepsis type: sepsis due to unspecified organism Sepsis acute organ dysfunction status: with acute organ dysfunction Severe sepsis acute organ dysfunction type: acute respiratory failure Acute respiratory failure type: with hypoxia Severe sepsis shock status: without septic shock Qualified Code(s): A41.9 - Sepsis, unspecified organism Patient Disposition: [facility] Condition: Improved Patient Language: Icelandic Prescriptions: No Action ipratropium-albuterol 0.5 mg-3 mg(2.5 mg base)/3 mL solution for nebulization 3 ml inhalation QID PRN (Reason: shortness of breath or wheezing) Qty: 90 3RF verapamil 120 mg capsule,ext rel. pellets 24 hr 120 mg PO DAILY famotidine 40 mg tablet 40 mg PO HS theophylline 400 mg tablet extended release 24 hr 400 mg PO Q24H ofloxacin 0.3 % drops 1 drp EACH EYE DAILY levofloxacin 750 mg tablet 750 mg PO DAILY Qty: 14 0RF prednisone 10 mg tablet See Rx Instructions PO DAILY Qty: 45 0RF Rx Instructions: orally daily; take 50 mg x 3 days then 40 mg x 3 days then 30 mg x 3 days then 20 mg x 3 days then 10 mg x 3 days. cholecalciferol (vitamin D3) 10 mcg (400 unit) capsule 25 mcg PO HS Rx Instructions: 1000 units tab daily prednisone 5 mg tablet 5 mg PO DAILY fluticasone propionate 50 mcg/actuation spray,suspension 2 spray INTRANASAL BID hydrocodone-acetaminophen 10-325 mg tablet 1 tablet PO HS aspirin 81 mg tablet,delayed release (DR/EC) 81 mg PO DAILY losartan 25 mg tablet See Rx Instructions .ROUTE .COMPLEX Qty: 90 2RF Dose Instruction: TAKE 1 TABLET BY MOUTH DAILY Rx Instructions: TAKE 1 TABLET BY MOUTH DAILY Spiriva Respimat 2.5 mcg/actuation mist 2 puff inhalation QAM Qty: 4 11RF roflumilast 500 mcg tablet 500 mcg PO DAILY Qty: 90 2RF pravastatin 20 mg tablet See Rx Instructions .ROUTE .COMPLEX Qty: 90 2RF Dose Instruction: TAKE 1 TABLET BY MOUTH DAILY Rx Instructions: TAKE 1 TABLET BY MOUTH DAILY fluticasone propion-salmeterol 230-21 mcg/actuation HFA aerosol inhaler 2 puff inhalation BID Qty: 12 2RF azelastine 137 mcg (0.1 %) spray,non-aerosol 1 spray intranasal Q12H Qty: 30 5RF Rx Instructions: administer into each nostril clopidogrel 75 mg tablet See Rx Instructions .ROUTE .COMPLEX Qty: 90 2RF Dose Instruction: TAKE 1 TABLET BY MOUTH DAILY Rx Instructions: TAKE 1 TABLET BY MOUTH DAILY zafirlukast 20 mg tablet See Rx Instructions .ROUTE .COMPLEX Qty: 180 6RF Dose Instruction: TAKE 1 TABLET BY MOUTH TWICE DAILY ON AN EMPTY STOMACH AT LEAST 1 HOUR BEFORE OR 2 HOURS AFTER A MEAL Rx Instructions: TAKE 1 TABLET BY MOUTH TWICE DAILY ON AN EMPTY STOMACH AT LEAST 1 HOUR BEFORE OR 2 HOURS AFTER A MEAL ipratropium bromide 42 mcg (0.06 %) spray,non-aerosol 2 spray intranasal TID Qty: 15 5RF Rx Instructions: administer into each nostril guaifenesin 600 mg tablet extended release 12hr 1,200 mg PO BID Qty: 120 6RF albuterol sulfate 90 mcg/actuation HFA aerosol inhaler 2 puff inhalation Q4H Qty: 8.5 6RF Follow-up/Referrals: Franklin German MD [Primary Care Provider] -
--- NOTE | 2024-05-01 12:19 | ECG_ITS ---
Test Date: 2024-05-01 12:55:37 Measurements Intervals [place] Rate: 99 P: 78 MT: 152 QRS: 32 QRSD: 143 T: 83 QT: 338 QTc: 434 Interpretive Statements SINUS RHYTHM RIGHT BUNDLE BRANCH BLOCK [120+ ms QRS DURATION, UPRIGHT V1, 40+ ms S IN I/aVL/V4/V5/V6] Compared to ECG 08/15/2023 16:02:44 No significant changes Electronically Signed On 05-01-2024 15:19:01 CDT by Yosi Schaffer M.D.
--- NOTE | 2024-05-01 12:25 | PC.NURSE ---
Patient's color has improved, respirations have slowed, grunting has stopped. Patient is able to speak in full sentences at this time and no signs or symptoms of distress noted.
[2024-05-01 12:42] LABS: Base Excess ABG 1.6 mmol/L (0-2); HCO3 ABG 25.4 mmol/L (23-29); Oxygen Saturation ABG 96.4 % (95-97); PO2 ABG 84.2 mmHg (75-85); Site Drawn RIGHT RADIAL; pH ABG 7.45 (7.35-7.45)
[2024-05-01 12:43] LABS: Device NASAL CANNULA; Modified Allen's Test Pass
[2024-05-01] MEDS: methylPREDNISolone SOD SUCC 125 MG VIAL IV PUSH (12:45)
[2024-05-01] MEDS: IPRATROPIUM 0.5 MG/ALBUTEROL SULFATE 2.5 MG AMPUL.NEB 3 ML INHALATION (12:45)
[2024-05-01 12:46] LABS: Basophils Absolute Auto 0.06 K/mm3 (0.00-0.10); Basophils Percent Auto 0.3 % (0.0-1.0); Eosinophils Percent Auto 0.5 % (1.0-6.0); Hematocrit 35.2 % (37.0-46.0); Immature Granulocyte Absolute 0.12 K/mm3 (0.00-0.00); Immature Granulocyte Percent A 0.6 % (0.0-0.0); Mean Corpuscular HGB Conc 31.3 g/dL (32-36); Mean Corpuscular Hemoglobin 29.6 pg (27.0-31.0); Mean Corpuscular Volume 94.9 fL (78.0-102.0); Mean Platelet Volume 8.1 fl (8.7-11.0); Monocytes Absolute Auto 0.87 K/mm3 (0.10-0.90); Monocytes Percent Auto 4.4 % (2.0-11.0); Neutrophils Absolute Auto 18.19 K/mm3 (1.70-7.20); Neutrophils Percent Auto 92.2 % (50.0-70.0); Platelet Count Result 367 K/mm3 (150-420); Red Blood Count 3.71 M/mm3 (4.70-6.10); Red Cell Distribution Width 13.5 % (11.6-14.4); White Blood Count 19.7 K/mm3 (4.8-10.8)
[2024-05-01 13:01] LABS: INR 0.9; Prothrombin Time 10.3 Seconds (9.50-12.1)
[2024-05-01 13:07] LABS: D Dimer 0.68 mg/L (0.19-0.50); Lactic Acid Reflex 2.7 mmol/L (0.4-2.0)
[2024-05-01 13:09] LABS: Alanine Aminotransferase 17 U/L (16-63); Albumin Level 3.7 g/dL (3.4-5.0); Alkaline Phosphatase 84 U/L (46-116); Anion Gap 10 mmol/L (4-12); Aspartate Amino Transferase 17 U/L (15-37); Bilirubin,Total 0.3 mg/dL (0.00-1.00); Blood Urea Nitrogen 16 mg/dL (7-18); Calcium 9.8 mg/dL (8.5-10.1); Carbon Dioxide 31 mmol/L (21-32); Chloride 96 mmol/L (98-108); Estimated CRCL calculation 48 ml/min; Estimated Glomerular Filt Rate 45; Glucose 107 mg/dL (70-99); NT Pro B Type Natriuretic Pept 217 pg/mL (0-125); Osmolality Calculated 285 mOsm/kg (285-295); Potassium 3.8 mmol/L (3.5-5.1); Sodium 137 mmol/L (136-145); Total Protein 8.1 g/dL (6.4-8.2); Troponin I 19.4 ng/L (0.00-60.4)
[2024-05-01 13:23] LABS: Influenza A QL RT-PCR Negative (Negative); Influenza B QL RT-PCR Negative (Negative); RSV RNA, RT-PCR Negative (Negative); SARS-CoV-2 RNA PCR Negative (Negative)
--- NOTE | 2024-05-01 13:24 | PC.NURSE ---
patient being taken down to Ct.
[2024-05-01] MEDS: SODIUM CHLORIDE 0.9% IV 1,000 ML 999 ML IV CONT (13:42)
[2024-05-01] MEDS: PIPERACILLN/TAZ 3.375GM/NS50ML 3.375 GM/50 ML BAG IVPB (13:42)
--- OUTSIDE RECORDS SUMMARY | 2024-05-01 14:14 | XMS_ITS | Clinical Summary ---
Author Organization [facility] [employer] Address [address] [place] [address] Care Team Providers Care Car Tester Name Role Phone Chemo Fields MD Primary Care Provider Source Comments [facility] [employer],non-owned Affiliates and Associated Physician Practices is amultiple site organization consisting of ambulatory clinics and hospital sitesin [place], [place], [place] and [place]. This disclosure is being madepursuant to the Care Everywhere program and may not contain all information available regarding this patient. Last updated 17.[facility] [employer] Medications * Be aware that medications may [...] Chronic viral hepatitis C 02/20/2016 Overview (05/09/2017): [id number] 02/06/16 Fibroscan 9.5 kPa Chronic obstructive pulmonary [...] Quantitative <15 NOT DETECTED <15 IU/mL [facility] Hepatitis C Virus RNA Log IU/mL <1.18 NOT DETECTED <1.18 Log IU/mL [facility] See Note [facility] Comment: The analytical performance characteristics of this assay have been determined by [facility]. The modifications have not been cleared or approved by the FDA. This assay has been validated pursuant to the CLIA regulations and is used for clinical purposes. This test was performed using the AARON(R)AmpliPrep/ AARON(R)TaqMan(R)HCV Test,v2.0. For more information on this test, go to: http://education.[employer] [place]eBaoTech/faq/DND38t1 (This link is being provided for informational/ educational purposes only.) REPORT COMMENT: IS PATIENT ON HEPARIN, ARGATROBAN OR DABIGATRAN?->N Test Performed at: [facility] [id number] [place] [address] KALYANI SELLERS DO,MPH 08/14/2016 9:06 AM CDT 08/14/2016 9:06 AM CDT Sadia Perez ENVIRONMENTAL TECH-COLD WORK OPERATOR LAB - [facility] GY ORDERABLES [facility]) from Last 3 Months or Most Recently Relevant to Health Maintenance Care Teams Car Tester Relationship Specialty Start Date End Date Chemo Fields MD [address] [facility] [address] [place] [address] PCP - General 06/16/15
--- OUTSIDE RECORDS SUMMARY | 2024-05-01 14:14 | XMS_ITS | Referral Summary ---
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 Gender Identity Not on file Sexual Orientation [...] on file Medical Devices Implanted Type Area Educational Aide Device Identifier Shelf Expiration Date Model / Serial / Lot Medtronic [facility] Surgery 3.0 X 15mm [place] Rx Coronary Stent [id number] - [id number] Implanted:Qty: 1 on 09/02/2022 [facility] Surgery 04/11/2025 [id number] / / [id number] Medtronic [facility] Surgery 3.5 X 22mm [place] Rx Coronary Stent [id number] - [id number] Implanted:Qty: 1 on 09/02/2022 by [facility] Surgery 06/03/2025 [id number] / / [id number] 001 [facility] Angio-Seal Vip 6fr Closere Device [id number] - [id number] Implanted:Qty: 1 on 09/02/2022 by Yoav Longoria MD at [facility] [employer]iel 03/09/2023 [id number] / / [id number] Explanted Type Area Educational Aide Device Identifier Shelf Expiration Date Model / Serial / Lot Medtronic Card Vasc Surgery 3.0 X 15mm [place] Rx Coronary Stent [id number] - [id number] Explanted:Qty: 1 on [facility]02/20[facility] 04/02/2025 [id number] / / [id number] Insurance [facility] MEDICARE ADVANTAGE [facility] MEDICARE ADVANTAGE [facility] MEDICARE ADVANTAGE ID[employer] Advance Directives For more information, please contact: [phone] * Full Code (Latest Code Status on File) Date Activated Date Inactivated Comments 01/23/2017 9:16 PM 01/26/2017 9:55 PM Care Teams Cup Trimming Machine Operator Relationship Specialty Start Date End Date Franklin German MD PCP - General Internal Medicine 07/07/22
--- OUTSIDE RECORDS SUMMARY | 2024-05-01 14:14 | XMS_ITS | Clinical Summary ---
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 Gender Identity Not on file Sexual Orientation [...] 07/25/2015, 016 Medical Devices Implanted Type Area Breading Machine Tender Device Identifier Shelf Expiration Date Model / Serial / Lot Medtronic Card Vasc Surgery 3.0 X 15mm Z[employer] [place] Rx Coronary Stent [id number] - [id number] Implanted:Qty: 1 on 09/02/2022 by Yoav Longoria MD at [facility] Medtronic [facility] Vasc Surgery 04/11/2025 [id number] [id number] / / [id number] Medtronic [facility] Vas Surgery 3.5 X 22mm [place] Rx Coronary Stent [id number] - [id number] Implanted:Qty: 1 on 09/02/2022 by Yoav Longoria MD at [facility] Medtronic [facility] Vasc Surgery 06/03/2025 [id number] [id number] / / [id number] [facility] [employer] [facility] Angio-Seal Vip 6fr Closere Device [id number] - [id number] Implanted:Qty: 1 on 09/02/2022 by Yoav Longoria MD at [facility] [employer] [facility] 03/09/2023 [id number] / / [id number] Explanted Type Area Breading Machine Tender Device Identifier Shelf Expiration Date Model / Serial / Lot Medtronic [facility] Vasc Surgery 3.0 X 15mm [place] Rx Coronary Stent [id number] - [id number] Explanted:Q[facility]: [facility] Vasc Surgery 04/02/2025 [id number] / / [id number] Insurance [facility] MEDICARE ADVANTAGE IDPA [facility] MEDICARE ADVANTAGE IDPA Advance Directives For more information, please contact: [phone] * Full Code (Latest Code Status on File) Date Activated Date Inactivated Comments 01/23/2017 9:16 PM 01/26/2017 9:55 PM Care Teams Infantryman Relationship Specialty Start Date End Date Franklin German MD PCP - General Internal Medicine 07/07/22
--- OUTSIDE RECORDS SUMMARY | 2024-05-01 14:15 | XMS_ITS | Clinical Summary ---
Author Organization [facility] Address [facility] [place] [address] Care Team Providers Care Seasonal Recruiter Name Role Phone Franklin German MD Primary Care Provider [phone] Tio Eliudeaston Berry DO Unavailable Yojana Granda MD Unavailable [phone] Allergies No known active allergies Medications triamcinolone [...] age to complete this topic Insurance MEDICAID [facility] Care Teams Seasonal Recruiter Relationship Specialty Start Date End Date Franklin German MD [address] [place] [address] PCP - General INTERNAL MEDICINE 04/21/22 Eliud Kinsey DO [address] [place] [address] INTERNAL MEDICINE 06/17/22 Yojana Granda MD [address], [address] [place] [address] CRITICAL CARE MEDICINE 06/17/22
[2024-05-01 14:42] LABS: Reflex Lactic Acid Yes or No Add Lactic
--- OUTSIDE RECORDS SUMMARY | 2024-05-01 15:00 | XMS_ITS | Clinical Summary ---
Author Organization [facility] [employer] Address [address] [place] [address] Care Team Providers Care Inside Finisher Name Role Phone Chemo Fields MD Primary Care Provider [phone] Source Comments [facility] [employer],non-owned Affiliates and Associated Physician Practices is amultiple site organization consisting of ambulatory clinics and hospital sitesin [place], [place] and [place]. This disclosure is being madepursuant to the Care Everywhere program and may not contain all information available regarding this patient. Last updated 17.[facility] [employer] Medications * Be aware that medications may [...] Chronic viral hepatitis C 02/20/2016 Overview (05/09/2017): [id number] 02/06/16 Fibroscan 9.5 kPa Chronic obstructive pulmonary [...] <15 NOT DETECTED <15 IU/mL [facility] Hepatitis C Virus RNA Log IU/mL <1.18 NOT DETECTED <1.18 Log IU/mL [facility] See Note [facility] Comment: The analytical performance characteristics of this assay have been determined by [facility]. The modifications have not been cleared or approved by the FDA. This assay has been validated pursuant to the CLIA regulations and is used for clinical purposes. This test was performed using the AARON(R)AmpliPrep/ AARON(R)TaqMan(R)HCV Test,v2.0. For more information on this test, go to: http://education.Sharematic.PublicEngines/faq/OLU86v2 (This link is being provided for informational/ educational purposes only.) REPORT COMMENT: IS PATIENT ON HEPARIN, ARGATROBAN OR DABIGATRAN?->N Test Performed at: [facility] [address] [place] [address] KALYANI SELLERS DO,MPH 08/14/2016 9:06 AM CDT 08/14/2016 9:06 AM CDT Sadia Perez PIERCING ARTIST-DISPATCH SUPERVISOR LAB - [facility] GY ORDERABLES [facility] from Last 3 Months or Most Recently Relevant to Health Maintenance Care Teams Inside Finisher Relationship Specialty Start Date End Date Chemo Fields MD [address] [facility] [address] [place] [address] PCP - General 06/16/15
--- OUTSIDE RECORDS SUMMARY | 2024-05-01 15:00 | XMS_ITS | Clinical Summary ---
Author Organization [facility] Address [facility] [address] [place] [address] Care Team Providers Care Ultrasonic Seaming Machine Operator Name Role Phone Franklin German MD Primary Care Provider [phone] Tio Eliudeaston Berry DO Unavailable Yojana Granda MD Unavailable [phone] Allergies No known active allergies Medications triamcinolone [...] age to complete this topic Insurance MEDICAID [facility] Care Teams Ultrasonic Seaming Machine Operator Relationship Specialty Start Date End Date Franklin German MD [address] [place] [address] PCP - General INTERNAL MEDICINE 04/21/22 Eliud Kinsey DO [address] [place] [address] INTERNAL MEDICINE 06/17/22 Yojana Granda MD [address], [address] [place] [address] CRITICAL CARE MEDICINE 06/17/22
--- OUTSIDE RECORDS SUMMARY | 2024-05-01 15:00 | XMS_ITS | Referral Summary ---
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 Gender Identity Not on file Sexual Orientation [...] on file Medical Devices Implanted Type Area Sampling Theory Teacher Device Identifier Shelf Expiration Date Model / Serial / Lot Medtronic [facility] Surgery 3.0 X 15mm Marble [place] Rx Coronary Stent [id number] - [id number] Implanted:Qty: 1 on 09/02/2022 [facility] Surgery 04/11/2025 [id number] / / [id number] Medtronic [facility] Surgery 3.5 X 22mm Zeeshan [place] Rx Coronary Stent [id number] - [id number] Implanted:Qty: 1 on 09/02/2022 [facility] Surgery 06/03/2025 [id number] [id number] / / [id number] [facility] Exploretrip [facility] Angio-Seal Vip 6fr Closere Device [id number] - [id number] Implanted:Qty: 1 on 09/02/2022 by Yoav Longoria MD at [facility] [employer] Mariel 03/09/2023 [id number] / / [id number] Explanted Type Area Sampling Theory Teacher Device Identifier Shelf Expiration Date Model / Serial / Lot Medtronic Card Vasc Surgery 3.0 X 15mm Zeeshan [place] Rx Coronary Stent [id number] - [id number] Explanted:Qty: [facility] 04/02/2025 [id number] / / [id number] Insurance [facility] MEDICARE ADVANTAGE [facility] MED[facility] ADVANTAGE [facility] MEDICARE ADVANTAGE [place] Advance Directives For more information, please contact: [phone] * Full Code (Latest Code Status on File) Date Activated Date Inactivated Comments 01/23/2017 9:16 PM 01/26/2017 9:55 PM Care Teams Raimann Machine Operator Relationship Specialty Start Date End Date Franklin German MD PCP - General Internal Medicine 07/07/22
--- OUTSIDE RECORDS SUMMARY | 2024-05-01 15:00 | XMS_ITS | Clinical Summary ---
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 Gender Identity Not on file Sexual Orientation [...] 07/25/2015, 016 Medical Devices Implanted Type Area Timber Bucker Device Identifier Shelf Expiration Date Model / Serial / Lot Medtronic Card Vasc Surgery 3.0 X 15mm Zeeshan [place] Rx Coronary Stent [id number] - [id number] Implanted:Qty: 1 on 09/02/2022 by Yoav Longoria MD at [facility] Medtronic [facility] Vasc Surgery 04/11/2025 [id number] / / [id number] Medtronic [facility] Vas Surgery 3.5 X 22mm Zeeshan [place] Rx Coronary Stent [id number] - [id number] Implanted:Qty: 1 on 09/02/2022 by Yoav Longoria MD at [facility] Medtronic [facility] Vasc Surgery 06/03/2025 [id number] / / [id number] 001 [facility] [employer] [facility] Angio-Seal Vip 6fr Closere Device [id number] - [id number] Implanted:Qty: 1 on 09/02/2022 by Yoav Longoria MD at [facility] [employer] [facility] 03/09/2023 [id number] / / [id number] Explanted Type Area Timber Bucker Device Identifier Shelf Expiration Date Model / Serial / Lot Medtronic [facility] Vasc Surgery 3.0 X 15mm [place] Rx Coronary Stent [id number] - [id number] Explanted:Qty: [facility] Vasc Surgery 04/02/2025 [id number] / / [id number] Insurance [facility] MEDIC[facility] ADVANTAGE [place] [facility] AD[facility] [employer] Advance Directives For more information, please contact: [phone] * Full Code (Latest Code Status on File) Date Activated Date Inactivated Comments 01/23/2017 9:16 PM 01/26/2017 9:55 PM Care Teams Weight Shifter Relationship Specialty Start Date End Date Franklin German MD PCP - General Internal Medicine 07/07/22
--- NOTE | 2024-05-01 16:14 | PC.NURSE ---
Patient arrived to unit in w/c from ED at 1505. Patient admitted to room 203. Patient educated on use of bed controls, call light, fall prevention, use of O2, visiting hours and general hospital policies, including initiation of rapid response. Blue admission folder given to patient. Patient voices understanding.
--- NOTE | 2024-05-01 16:15 | P.HP_ITS ---
H&P: HPI History of Present Illness Date/Time: 05/01/24 16:15 Chief Complaint: shortness of breath/dyspnea Narrative: This is a 68-year-old male with a significant past medical history of COPD, coronary artery disease, hyperlipidemia, diverticulitis, GERD, BPH, cataracts, psoriasis, hepatitis-C post treatment, current every day smoker who presented to the hospital with complaints of shortness a breath and dyspnea. patient states that he was just treated for diverticulitis Flare-up and pneumonia and was placed on Levaquin and Flagyl. he still complains of left abdominal/flank pain but admits to eating sausage earlier today that may have brought this on. He states that when he started with his diverticulitis flare-up he had bright red blood per rectum which turned to dark tarry stools. He states his stools are still dark and was referred to GI however he missed his appointment on Tuesday and needs to make another appointment for outpatient colonoscopy / EGD if necessary. He states that his breathing got considerably worse and he presented today for further evaluation. He denies any fever, chills, nausea, vomiting, diarrhea. He is short of breath at baseline and wears 4- 6 L at home for his end-stage COPD. He is currently on 4 L here. Workup in the hospital included a chest x-ray which was negative for any acute cardiopulmonary process. He had a chest CTA which was negative for PE, showed emphysema changes of the lungs, nodule in the left upper lobe measuring 6 mm, hyperdense area in the right kidney upper pole which may be a mass versus cyst. Initial labs shown a white blood cell count of 19.7, hemoglobin 11.0, INR 0.9, D-dimer was slightly elevated at 0.68, ABG was normal, creatinine 1.55, EGFR 45, lactic acid 2.7, troponin 19.4, BNP 217. Respiratory panel was negative for influenza a and B, RSV, COVID. Blood cultures were obtained and pending. EKG showed sinus rhythm with a right bundle branch block, rate of 99, QTC 434. Patient was given a dose of Zosyn, Solu-Medrol 125 mg IV push, and a DuoNeb while in the ED. He also received 1 L of normal saline. Patient initially meeting sepsis criteria with elevated heart rate of 102-106, elevated respiratory rate of 20 2-24, white blood cell count 19.7, acute kidney injury with creatinine of 1.55, lactic acid 2.7. Review of Systems Review of Systems: All systems reviewed & are unremarkable except as noted in HPI and below [facility] Past Medical History Medical History (Updated 05/01/24 @ 16:44 by Alyson Berrios APRN) Congestive heart failure Nicotine dependence Sinusitis, chronic Psoriasis Cataracts, bilateral Arthritis BPH (benign prostatic hyperplasia) Hepatitis C GERD (gastroesophageal reflux disease) Diverticulitis Asthma Emphysema (subcutaneous) (surgical) resulting from a procedure CAD (coronary artery disease) Hyperlipidemia Surgical History Surgical History History of tonsillectomy H/O knee surgery H/O hernia repair Family History Family History Mother Cerebrovascular accident Patient's mother is Father Family history of emphysema Patient's father is Social History Social History Smoking packs per day: 1 Smoking cigarettes per day: 20.0 Years smoked: 60 Smoking pack-years: 60.00 Smoking status: Current every day smoker Tobacco type: cigarettes Second hand tobacco smoke exposure: Yes Additional smoking assessment comments: used to smoke up to 3 ppd, decreased recently to 2 then 1 ppd. Alcohol intake: never Substance use: never Substance use type: marijuana Other substance usage details: Vicodin Do You Feel Safe in your Home?: Yes Lack of Transportation: YES Lack of Food: Never True Current Housing: I Have Housing Concerned About Future Housing: No Difficulty Paying Gas/Electric Bills: No Difficulty Paying for Meds: No Currently Unemployed: No Education: Grade School Difficulty w/ Childcare or Family Care: No Living arrangements: with friend(s) Spiritual care concerns: No Meds Home Medications and Allergies Home Medications ?Medication ?Instructions ?Recorded ?Confirmed ?Type ipratropium 0.5 mg-albuterol 3 mg 3 ml inhalation QID PRN shortness 03/15/22 03/15/24 Rx (2.5 mg base)/3 mL nebulization of breath or wheezing #90 mL soln famotidine 40 mg tablet 40 mg PO HS 06/21/22 03/15/24 History verapamil 120 mg 24 hr 120 mg PO DAILY 06/21/22 03/15/24 History capsule,extended release aspirin 81 mg tablet,delayed 81 mg PO DAILY 07/14/22 03/15/24 History release cholecalciferol (vitamin D3) 10 25 mcg PO HS 07/15/22 03/15/24 History mcg (400 unit) capsule fluticasone propionate 50 2 spray intranasal BID 07/27/22 03/15/24 History mcg/actuation nasal spray,suspension prednisone 5 mg tablet 5 mg PO DAILY 07/27/22 03/15/24 History theophylline 400 mg 400 mg PO Q24H 04/22/23 03/15/24 History tablet,extended release 24 hr losartan 25 mg tablet See Rx Instructions .Route 09/29/23 03/15/24 Rx .COMPLEX #90 tabs Spiriva Respimat 2.5 mcg/actuation 2 puff inhalation QAM #4 grams 10/03/23 03/15/24 Rx solution for inhalation (tiotropium bromide) roflumilast 500 mcg tablet 500 mcg PO DAILY #90 tabs 10/24/23 03/15/24 Rx pravastatin 20 mg tablet See Rx Instructions .Route 11/18/23 03/15/24 Rx .COMPLEX #90 tabs azelastine 137 mcg (0.1 %) nasal 1 spray intranasal Q12H #30 mL 01/26/24 03/15/24 Rx spray clopidogrel 75 mg tablet See Rx Instructions .Route 01/30/24 03/15/24 Rx .COMPLEX #90 tabs zafirlukast 20 mg tablet See Rx Instructions .Route 03/08/24 03/15/24 Rx .COMPLEX #180 tabs guaifenesin 600 mg tablet, 1,200 mg (2 x 600 mg) PO BID #120 03/29/24 Rx extended release 12 hr tabs ipratropium bromide 42 mcg (0.06 2 spray intranasal TID #15 mL 03/29/24 Rx %) nasal spray albuterol sulfate 90 mcg/actuation 2 puff inhalation Q4H #8.5 grams 04/19/24 Rx aerosol inhaler hydrocodone 5 mg-acetaminophen 325 2 tablet PO Q12H 05/01/24 05/01/24 History mg tablet Allergies Allergy/AdvReac Type Severity Reaction Status Date / Time latex AdvReac Rash Verified 03/15/24 14:17 Sodium pentathol AdvReac emesis Uncoded 09/16/23 09:01 Vital Signs Vital Signs - 24 hr 05/01/24 12:15 05/01/24 12:15 05/01/24 12:19 Temperature 97.4 F L Pulse Rate 106 H Respiratory Rate 24 H 25 H Blood Pressure 121/100 H Pulse Oximetry 100 100 100 Oxygen Delivery Nasal Cannula Nasal Cannula Nasal Cannula Oxygen Flow Rate 6 6 4 05/01/24 12:20 05/01/24 12:25 05/01/24 12:25 Temperature Pulse Rate 105 H Respiratory Rate 22 H Blood Pressure 121/100 H Pulse Oximetry 100 100 100 Oxygen Delivery Nasal Cannula Nasal Cannula Oxygen Flow Rate 4 4 05/01/24 12:30 05/01/24 12:45 05/01/24 12:46 Temperature Pulse Rate 111 H 101 H 102 H Respiratory Rate 20 20 16 Blood Pressure Pulse Oximetry 100 96 Oxygen Delivery Oxygen Flow Rate 05/01/24 12:53 05/01/24 13:00 05/01/24 13:06 Temperature Pulse Rate 101 H 100 105 H Respiratory Rate 18 25 H 24 H Blood Pressure 113/77 Pulse Oximetry 100 100 100 Oxygen Delivery Nasal Cannula Nasal Cannula Oxygen Flow Rate 4 4 05/01/24 13:15 05/01/24 13:16 05/01/24 13:45 Temperature Pulse Rate 98 97 98 Respiratory Rate 22 H 22 H Blood Pressure 94/79 L 120/74 Pulse Oximetry 100 98 99 Oxygen Delivery Nasal Cannula Nasal Cannula Oxygen Flow Rate 4 4 05/01/24 13:46 05/01/24 14:00 05/01/24 14:01 Temperature Pulse Rate 98 94 95 Respiratory Rate 19 22 H Blood Pressure 134/70 Pulse Oximetry 99 100 100 Oxygen Delivery Nasal Cannula Oxygen Flow Rate 4 05/01/24 14:15 05/01/24 14:16 05/01/24 14:30 Temperature Pulse Rate 96 94 97 Respiratory Rate 14 15 21 H Blood Pressure 130/70 Pulse Oximetry 98 98 100 Oxygen Delivery Nasal Cannula Oxygen Flow Rate 4 05/01/24 14:31 05/01/24 14:45 05/01/24 14:46 Temperature Pulse Rate 96 104 H 97 Respiratory Rate 19 35 H 21 H Blood Pressure 143/104 H 131/73 Pulse Oximetry 100 98 98 Oxygen Delivery Nasal Cannula Nasal Cannula Oxygen Flow Rate 4 4 05/01/24 15:05 05/01/24 16:12 Temperature 97.7 F 98.7 F Pulse Rate 93 96 Respiratory Rate 20 20 Blood Pressure 134/72 135/67 Pulse Oximetry 99 97 Oxygen Delivery Nasal Cannula Nasal Cannula Oxygen Flow Rate 4 4 Exam Narrative: General: In no acute distress, well nourished Head: atraumatic, no encephalopathy Eyes: EOMI, PERRLA, sclera clear ENT: moist mucous membranes, nasal passages clear Neck: supple, no JVD, no adenopathy, trachea midline Cardiac: Normal S1 and S2. No murmur, gallops or friction rubs, peripheral pulses intact. Respiratory: Lungs clear to auscultation, no adventitious lung sounds Gastrointestinal: soft, non-distended, non-tender, normoactive bowel sounds. : voiding without difficulty. Extremities: moves all extremities well, no edema, good ROM, strength 5/5 Skin: clean, dry, intact. No wounds or lesions. Neuro: Alert and oriented x4, cranial nerves intact, no neuro deficits. Psych: normal mood, normal affect, interactive H&P: Results Labs Labs: Short CBC 05/01/24 Range/Units 12:35 WBC 19.7 H (4.8-10.8) K/mm3 Hgb 11.0 L (12.4-15.3) g/dL Hct 35.2 L (37.0-46.0) % Plt Count 367 (150-420) K/mm3 BMP 05/01/24 12:35 Sodium 137 Potassium 3.8 Chloride 96 L Carbon Dioxide 31 BUN 16 Creatinine 1.55 H Glucose 107 H Calcium 9.8 Cardiac Enzymes 05/01/24 Range/Units 12:35 Troponin I 19.4 (0.00-60.4) ng/L Liver Function 05/01/24 Range/Units 12:35 Total Bilirubin 0.3 (0.00-1.00) mg/dL AST 17 (15-37) U/L ALT 17 (16-63) U/L Alkaline Phosphatase 84 (46-116) U/L Albumin 3.7 (3.4-5.0) g/dL Imaging Chest x-ray: Radiologist's impression: XR chest 1V portable Ordering provider: Maurciio Joseph MD History: 68 years Male with . sob,COPD,RT LOWER POSTERIOR BACK PAIN . Comparison: 04/22/2023 FINDINGS: MEDIASTINUM: The cardiac silhouette is not enlarged. LUNGS: No infiltrates, effusions or pneumothorax. Opacity seen in the right mid zone which is most likely summation shadow. A repeat exam in 3 months is advised. OTHER: No free air under the diaphragm. IMPRESSION: No acute cardiopulmonary pathology. Reviewed, dictated and finalized at location A. chest CTA: Radiologist's impression: CTA chest PE protocol Ordering provider: Mauricio Joseph MD History: 68 years Male with . elev dimer/sob,COUGH,COPD,SMOKER . Comparison: None. Technique: CT angiogram chest was performed following timed intravenous injection of contrast. Thin slice axial images and reformatted coronal images were obtained. Three dimensional reformatted images of the chest were also obtained using a [employer] workstation. . Automated exposure control and iterative reconstruction technique were employed. The dose-length product was 887.00 mGy- cm. 100 mL Omnipaque 350 was given IV. Findings: PULMONARY ARTERIES: No pulmonary embolus. VISUALIZED THORACIC INLET: Normal. MEDIASTINUM: Aorta/coronary arteries: Mild atheromatous disease. Heart/other: The heart is not enlarged. Lymph nodes: No mediastinal or hilar adenopathy. LUNGS: 6 mm nodule is seen in the left upper lobe. No pulmonary masses. No infiltrates or effusions. No pneumothorax. Emphysematous changes of the lungs with multiple bullae. VISUALIZED UPPER ABDOMEN: Hyperdense areas seen in the right kidney region may be a mass or hemorrhagic cyst. Ultrasound evaluation advised. Left kidney cysts are also noted with focus of parenchymal calcification. Otherwise, the visualized upper abdomen is normal. MUSCULOSKELETAL: Soft tissues: The superficial soft tissues are normal. Bones: Age appropriate degenerative changes of the spine. IMPRESSION: 1. No pulmonary embolism. 2. Emphysematous changes of the lungs. 3. Nodule in the left upper lobe measuring 6 mm. Follow-up CT is advised in 6 months. 4. Hyperdense area in the right kidney upper pole. Further evaluation advised. Reviewed, dictated and finalized at location A. Assessment and Plan Assessment and plan (1) Sepsis: Qualifiers: Acute respiratory failure type: with hypoxia Sepsis acute organ dysfunction status: with acute organ dysfunction Sepsis type: sepsis due to unspecified organism Severe sepsis acute organ dysfunction type: acute respiratory failure Severe sepsis shock status: without septic shock Qualified Code(s): A41.9 - Sepsis, unspecified organism; R65.20 - Severe sepsis without septic shock; J96.01 - Acute respiratory failure with hypoxia Code(s): A41.9 - Sepsis, unspecified organism Status: Acute Assessment and Plan: initially meeting sepsis criteria with heart rate of 102-106, respiratory rate 20 2-24, white blood cell count 19.7, acute kidney injury with creatinine of 1.55, lactic acid 2.7 initially * patient was given 1 L of normal saline while in the ED with improvement in his heart rate and respiratory rate * blood cultures were obtained and pending * will repeat lactic acid * patient received a dose of Zosyn while in the ED * Will switch to Rocephin and azithromycin (2) Pneumonia: Qualifiers: Laterality: right Lung location: middle lobe of lung Pneumonia type: due to unspecified organism Qualified Code(s): J18.9 - Pneumonia, unspecified organism Code(s): J18.9 - Pneumonia, unspecified organism Status: Acute Assessment and Plan: * chest x-ray was negative for any acute cardiopulmonary process * chest CTA was negative for PE, emphysema changes of the lungs, nodule in the left upper lobe measuring 6 mm * continue to wean O2 for sat greater than 92%, currently on 4 L nasal cannula * continue DuoNebs * patient was given Zosyn while in the ED * they will transition to Rocephin and azithromycin * respiratory panel negative for influenza a and B, RSV, COVID (3) Acute exacerbation of chronic obstructive pulmonary disease: Code(s): J44.1 - Chronic obstructive pulmonary disease with (acute) exacerbation Status: Acute Assessment and Plan: * patient has history of severe COPD with emphysema and history of asthma, he is a patient of Dr. Nicole who states that he is end-stage COPD. he wears 4-6 L at home as needed and currently smokes 1 pack per day. * code status reviewed and he will talk with his family about being a modified code status or DNR. He is also seeking to get POA paperwork done and he is talking about having his sister as his POA. * continue DuoNebs * will start prednisone 40 mg daily starting tomorrow * patient had loading dose of Solu-Medrol 125 mg IV push while in the ED * continue guaifenesin 1200 mg p.o. b.i.d. (4) Diverticulitis: Code(s): K57.92 - Diverticulitis of intestine, part unspecified, without perforation or abscess without bleeding Status: Acute Assessment and Plan: * patient recently started on Levaquin and Flagyl for diverticulitis * continue low residue diet * Patient reports that he had bright red blood per rectum at 1st with his diverticulitis flare up and has now become dark and tarry. He was supposed to follow up with GI doctor on Tuesday however he did not have a ride to the appointment. He will need to follow up with the GI doctor as an outpatient for EGD/ colonoscopy. * Hemoglobin 11.0 today (5) Lung nodule: Code(s): R91.1 - Solitary pulmonary nodule Status: Acute Assessment and Plan: * chest CTA showed nodule in the left upper lobe measuring 6 mm * patient will need follow-up CT in 6 months * Dr. Nicole following (6) Lesion of right nenana kidney: Code(s): N28.9 - Disorder of kidney and ureter, unspecified Status: Acute Assessment and Plan: * incidental finding on CTA of chest showed hyperdense area in the right kidney upper pole which may be a mass or hemorrhagic cyst * will get ultrasound of kidneys (7) Congestive heart failure: Code(s): I50.9 - Heart failure, unspecified Status: Acute Assessment and Plan: * last echo was reviewed from 07/19/2022 which shown normal LV systolic function with an estimated EF of 55-60%, grade 1 diastolic dysfunction, moderate aortic valve sclerosis (8) Asthma: Code(s): J45.909 - Unspecified asthma, uncomplicated Status: Acute Assessment and Plan: * continue Zafirlukast * continue DuoNebs * Will hold prednisone 5 mg tablet, home dose * will start Solu-Medrol 40 mg t.i.d., was going to put him on prednisone 40 mg daily however he states he can not tolerate higher doses of prednisone??? * patient received 125 mg IV push Solu-Medrol while in the ED * followed by Dr. Nicole (9) GERD (gastroesophageal reflux disease): Code(s): K21.9 - Gastro-esophageal reflux disease without esophagitis Status: Acute Assessment and Plan: * continue famotidine (10) Hypertension: Code(s): I10 - Essential (primary) hypertension Status: Acute Assessment and Plan: * blood pressure ranging 131/73 to 135/67 * continue verapamil and losartan (11) Hyperlipidemia: Code(s): E78.5 - Hyperlipidemia, unspecified Status: Acute Assessment and Plan: * continue aspirin, Plavix, and pravastatin (12) Nicotine dependence: Code(s): F17.200 - Nicotine dependence, unspecified, uncomplicated Status: Acute Assessment and Plan: * current every day smoker * nicotine patch ordered (13) Hepatitis C: Code(s): B19.20 - Unspecified viral hepatitis C without hepatic coma Status: Acute Assessment and Plan: * history of hepatitis-C status post treatment Quality VTE Prophylaxis VTE prophylaxis: pharmacologic ordered
[2024-05-01 16:40] LABS: Lactic Acid 1.7 mmol/L (0.4-2.0)
[2024-05-01] MEDS: NICOTINE (*PBKC) 21 MG PATCH 1 PATCH TRANSDERM (17:02)
--- NOTE | 2024-05-01 17:27 | PC.NURSE ---
Telemetry initiated on patient.
[2024-05-01 17:39] LABS: Thyroid Stimulating Hormone 1.33 uIU/mL (0.36-3.74)
[2024-05-01] MEDS: IPRATROPIUM NASAL SPRAY 0.06% 15 ML BOTTLE 2 SPRAY NASAL (17:52)
[2024-05-01] MEDS: HYDROcodone/acetaminophen (*CRX) 5-325 MG TABLET 2 TAB PO (19:20)
[2024-05-01] MEDS: AZELASTINE HCL NASAL 0.1% 137 MCG/SPR 30 ML BTL 1 SPRAY NASAL (20:37)
[2024-05-01] MEDS: guaiFENesin 12 HR 600 MG TABCR 1200 MG PO (20:40)
[2024-05-01] MEDS: FAMOTIDINE 20 MG TABLET 40 MG PO (20:40)
[2024-05-01] MEDS: CHOLECALCIFEROL 1,000 UNITS TABLET 1000 UNITS PO (20:40)
[2024-05-01] MEDS: ZAFIRLUKAST 20 MG TABLET PO (20:40)
[2024-05-01] MEDS: HYDROcodone/acetaminophen (*CRX) 5-325 MG TABLET 1 TAB PO (20:41)
[2024-05-01] MEDS: FLUTICASONE PROPIONATE 0.05% NA SPR 16 GM BTL (*BKC) 2 SPRAY NASAL (20:42)
--- NOTE | 2024-05-01 23:35 | PC.NURSE ---
Pt c/o gas pain and requested a 'gas pill'. Ana Berrios NP notified and orders for Simethicone 80 mg given.
[2024-05-01] MEDS: SIMETHICONE 80 MG TAB.CHEW PO (23:45)
[2024-05-02] VITALS (16 sets, daily range): BP systolic 132–142; BP diastolic 65–96; PULSE 91–112; RESP 18–24; TEMP 36.3–36.8; O2SAT 93–100
[2024-05-02] MEDS: HYDROcodone/acetaminophen (*CRX) 5-325 MG TABLET 1 TAB PO ×4 (01:56→22:28)
[2024-05-02 05:31] LABS: Hematocrit 29.9 % (37.0-46.0); Hemoglobin 9.4 g/dL (12.4-15.3); Mean Corpuscular HGB Conc 31.4 g/dL (32-36); Mean Corpuscular Hemoglobin 29.3 pg (27.0-31.0); Mean Corpuscular Volume 93.1 fL (78.0-102.0); Mean Platelet Volume 8.3 fl (8.7-11.0); Platelet Count Result 337 K/mm3 (150-420); Red Blood Count 3.21 M/mm3 (4.70-6.10); Red Cell Distribution Width 13.1 % (11.6-14.4)
[2024-05-02 05:47] LABS: Band Neutrophils Percent 0 % (0-6); Basophils Percent Manual 0 % (0-1); Eosinophils Percent Manual 0 % (1-6); Lymphocytes Absolute Manual 0.16 K/mm3 (1.1-4.5); Lymphocytes Percent Manual 2 % (18-44); Monocytes Absolute Manual 0.16 K/mm3 (0.1-0.90); Monocytes Percent Manual 2 % (3-9); Neutrophils Absolute Manual 7.68 K/mm3 (1.3-6.7); Neutrophils Percent Manual 96 % (46-73); Platelet Estimate Adequate (Adequate); Total Cells Counted 100
[2024-05-02 05:48] LABS: Alanine Aminotransferase 15 U/L (16-63); Albumin Level 3.3 g/dL (3.4-5.0); Alkaline Phosphatase 75 U/L (46-116); Anion Gap 6 mmol/L (4-12); Aspartate Amino Transferase 12 U/L (15-37); Bilirubin,Total 0.2 mg/dL (0.00-1.00); Blood Urea Nitrogen 18 mg/dL (7-18); Calcium 9.5 mg/dL (8.5-10.1); Carbon Dioxide 31 mmol/L (21-32); Chloride 101 mmol/L (98-108); Estimated CRCL calculation 55 ml/min; Estimated Glomerular Filt Rate 52; Glucose 144 mg/dL (70-99); Magnesium 1.9 mg/dL (1.8-2.4); Osmolality Calculated 290 mOsm/kg (285-295); Potassium 5.3 mmol/L (3.5-5.1); Sodium 138 mmol/L (136-145); Total Protein 6.6 g/dL (6.4-8.2)
[2024-05-02] MEDS: IPRATROPIUM NASAL SPRAY 0.06% 15 ML BOTTLE 2 SPRAY NASAL ×3 (08:53→15:59)
[2024-05-02] MEDS: AZELASTINE HCL NASAL 0.1% 137 MCG/SPR 30 ML BTL 1 SPRAY NASAL ×2 (08:54→20:05)
[2024-05-02] MEDS: NICOTINE (*PBKC) 21 MG PATCH 1 PATCH TRANSDERM (10:02)
[2024-05-02] MEDS: PANTOPRAZOLE SODIUM IV 40 MG VIAL IV PUSH ×2 (10:02→20:04)
[2024-05-02] MEDS: metroNIDAZOLE 250 MG TABLET 500 MG PO ×3 (10:03→16:04)
[2024-05-02] MEDS: VERAPAMIL HCL ER 120 MG TABLET PO (10:04)
[2024-05-02] MEDS: levoFLOXacin 500 MG TABLET PO (10:04)
[2024-05-02] MEDS: guaiFENesin 12 HR 600 MG TABCR 1200 MG PO ×2 (10:05→20:05)
[2024-05-02] MEDS: TAMSULOSIN HCL 0.4 MG CAPSULE PO (10:05)
[2024-05-02] MEDS: predniSONE 20 MG TABLET 40 MG PO (10:05)
[2024-05-02] MEDS: LOSARTAN POTASSIUM 25 MG TABLET PO (10:07)
[2024-05-02] MEDS: PRAVASTATIN SODIUM 20 MG TABLET PO (10:07)
[2024-05-02] MEDS: ZAFIRLUKAST 20 MG TABLET PO ×2 (10:07→20:05)
[2024-05-02] MEDS: SODIUM ZIRCONIUM CYCLOSILICATE 5 GM POWD.PACK 10 GM PO (10:16)
--- NOTE | 2024-05-02 10:39 | P.PNIM_ITS ---
Progress Note: A&P Assessment and Plan (1) Acute exacerbation of chronic obstructive pulmonary disease: Code(s): J44.1 - Chronic obstructive pulmonary disease with (acute) exacerbation Status: Acute Assessment and Plan: * patient has history of severe COPD with emphysema and history of asthma, he is a patient of Dr. Nicole who states that he is end-stage COPD. he wears 4-6 L at home as needed and currently smokes 1 pack per day. * code status reviewed and he will talk with his family about being a modified code status or DNR. He is also seeking to get POA paperwork done and he is talking about having his sister as his POA. * continue DuoNebs * will start prednisone 40 mg daily starting tomorrow * patient had loading dose of Solu-Medrol 125 mg IV push while in the ED * continue guaifenesin 1200 mg p.o. b.i.d. 05/02/2024 * resume patient's Levaquin for his diverticulitis which will cover for any underlying potential pneumonia but chest CT was clear infiltrates * patient continues on 4 L nasal cannula * started DuoNebs and transitioned to 40 prednisone daily * patient typically uses his rescue albuterol inhaler up to 6 times daily found at bedside had been using overnight removed and sent to pharmacy (2) Diverticulitis: Code(s): K57.92 - Diverticulitis of intestine, part unspecified, without perforation or abscess without bleeding Status: Acute Assessment and Plan: * patient recently started on Levaquin and Flagyl for diverticulitis * continue low residue diet * Patient reports that he had bright red blood per rectum at 1st with his diverticulitis flare up and has now become dark and tarry. He was supposed to follow up with GI doctor on Tuesday however he did not have a ride to the appointment. He will need to follow up with the GI doctor as an outpatient for EGD/ colonoscopy. * Hemoglobin 11.0 today 05/02/24 * resumed his Levaquin and Flagyl for 3 more days * CT abdomen pending * hemoglobin dropped will do anemia workup (3) Anemia: Code(s): D64.9 - Anemia, unspecified Status: Acute Assessment and Plan: patient was scheduled to have a GI outpatient appointment on Sunday 04/30 did not have transportation and missed it * HGB 9.4 from 11.0 * Reported blood in stool * occult stool ordered * holding ASA, Plavix, lovenox * CT ABD pending * Protonix BID IVP * F/U Hgb 05/03 if hemoglobin continues to drop will likely need transferred for GI consult (4) Lung nodule: Code(s): R91.1 - Solitary pulmonary nodule Status: Acute Assessment and Plan: * chest CTA showed nodule in the left upper lobe measuring 6 mm * patient will need follow-up CT in 6 months * Dr. Corey kimball (5) Lesion of right [place] kidney: Code(s): N28.9 - Disorder of kidney and ureter, unspecified Status: Acute Assessment and Plan: * incidental finding on CTA of chest showed hyperdense area in the right kidney upper pole which may be a mass or hemorrhagic cyst * will get ultrasound of kidneys (6) Asthma: Code(s): J45.909 - Unspecified asthma, uncomplicated Status: Acute Assessment and Plan: * continue Zafirlukast * continue DuoNebs * Will hold prednisone 5 mg tablet, home dose * will start Solu-Medrol 40 mg t.i.d., was going to put him on prednisone 40 mg daily however he states he can not tolerate higher doses of prednisone??? * patient received 125 mg IV push Solu-Medrol while in the ED * followed by Dr. Nicole (7) GERD (gastroesophageal reflux disease): Code(s): K21.9 - Gastro-esophageal reflux disease without esophagitis Status: Acute Assessment and Plan: * continue famotidine (8) Hypertension: Code(s): I10 - Essential (primary) hypertension Status: Acute Assessment and Plan: * blood pressure ranging 131/73 to 135/67 * continue verapamil and losartan (9) Hyperlipidemia: Code(s): E78.5 - Hyperlipidemia, unspecified Status: Acute Assessment and Plan: * continue aspirin, Plavix, and pravastatin (10) Nicotine dependence: Code(s): F17.200 - Nicotine dependence, unspecified, uncomplicated Status: Acute Assessment and Plan: * current every day smoker * nicotine patch ordered (11) Hepatitis C: Code(s): B19.20 - Unspecified viral hepatitis C without hepatic coma Status: Acute Assessment and Plan: * history of hepatitis-C status post treatment (12) BPH (benign prostatic hyperplasia): Code(s): N40.0 - Benign prostatic hyperplasia without lower urinary tract symptoms Status: Acute Assessment and Plan: patient reported inability to empty bladder fully * Started flomax (13) Sepsis: Qualifiers: Acute respiratory failure type: with hypoxia Sepsis acute organ dysfunction status: with acute organ dysfunction Sepsis type: sepsis due to unspecified organism Severe sepsis acute organ dysfunction type: acute respiratory failure Severe sepsis shock status: without septic shock Qualified Code(s): A41.9 - Sepsis, unspecified organism; R65.20 - Severe sepsis without septic shock; J96.01 - Acute respiratory failure with hypoxia Code(s): A41.9 - Sepsis, unspecified organism Status: Resolved Assessment and Plan: initially meeting sepsis criteria with heart rate of 102-106, respiratory rate 20 2-24, white blood cell count 19.7, acute kidney injury with creatinine of 1.55, lactic acid 2.7 initially * patient was given 1 L of normal saline while in the ED with improvement in his heart rate and respiratory rate * blood cultures were obtained and pending * will repeat lactic acid * patient received a dose of Zosyn while in the ED * Will switch to Rocephin and azithromycin (14) Pneumonia: Qualifiers: Laterality: right Lung location: middle lobe of lung Pneumonia type: due to unspecified organism Qualified Code(s): J18.9 - Pneumonia, unspecified organism Code(s): J18.9 - Pneumonia, unspecified organism Status: Ruled-out Assessment and Plan: * chest x-ray was negative for any acute cardiopulmonary process * chest CTA was negative for PE, emphysema changes of the lungs, nodule in the left upper lobe measuring 6 mm * continue to wean O2 for sat greater than 92%, currently on 4 L nasal cannula * continue DuoNebs * patient was given Zosyn while in the ED * they will transition to Rocephin and azithromycin * respiratory panel negative for influenza a and B, RSV, COVID Plan Code status: Full code per patient DVT prophylaxis: holding Lovenox/SCD's Stress ulcer prophylaxis: Protonix 40 BID PT/OT notes: Ambulatory Disposition: patient was admitted to the medical unit for further evaluation and treatment of COPD exacerbation and diverticulitis patient has had some blood in stool and hemoglobin has dropped. will do anemia workup if there is some concern for active GI bleed will transfer for further evaluation by GI if stable have patient follow-up outpatient. Time Spent With Patient Time with patient: 15 - 25 minutes Subjective Date/time seen: 05/02/24 10:39 Interval history: Patient is a 68-year-old male admitted for further evaluation and treatment of COPD exacerbation and diverticulitis. 05/02/2024: Assumed care Patient still with shortness of breaths, productive cough and difficulty with any activity. patient did also report continued abdominal pain left lower quadrant did report BM and gas this a.m. CT abdomen pending hemoglobin dropped to 9.4 we will need to rule out any potential GI bleed missed his outpatient GI appointment Tuesday. patient denied any chest pain, nausea, vomiting, or fever. Review of Systems Review of Systems: All systems reviewed & are unremarkable except as noted in HPI and below Exam Const: General: uncomfortable Other: SOB worse with exertion, ABD discomfort on 4L NC supplemental oxygen HENMT: Mouth: Yes moist mucous membranes Eyes: Pupils: Equal, round and reactive pupils present Neck: Neck: supple and no JVD Resp: Auscultation: wheezes scattered wheezes Other: nonproductive cough Cardio: Rate: tachycardic GI: GI Palp: Yes Tenderness to palpation present (GI) Auscultation: abnormal bowel sounds ( hyperactive) Skin: General skin exam: normal color and no rashes or lesions noted Wounds: no wounds Neuro: General: gait normal Speech: normal speech Extrem: General: normal to inspection Psych: Mental Status: mental status grossly normal Affect: Anxious affect present Objective Data Vital Signs Vital Signs: Vital Signs - 24 hr 05/01/24 12:15 05/01/24 12:15 05/01/24 12:19 Temperature 97.4 F L Pulse Rate 106 H Respiratory Rate 24 H 25 H Blood Pressure 121/100 H Pulse Oximetry 100 100 100 Oxygen Delivery Nasal Cannula Nasal Cannula Nasal Cannula Oxygen Flow Rate 6 6 4 05/01/24 12:20 05/01/24 12:25 05/01/24 12:25 Temperature Pulse Rate 105 H Respiratory Rate 22 H Blood Pressure 121/100 H Pulse Oximetry 100 100 100 Oxygen Delivery Nasal Cannula Nasal Cannula Oxygen Flow Rate 4 4 05/01/24 12:30 05/01/24 12:45 05/01/24 12:46 Temperature Pulse Rate 111 H 101 H 102 H Respiratory Rate 20 20 16 Blood Pressure Pulse Oximetry 100 96 Oxygen Delivery Oxygen Flow Rate 05/01/24 12:53 05/01/24 13:00 05/01/24 13:06 Temperature Pulse Rate 101 H 100 105 H Respiratory Rate 18 25 H 24 H Blood Pressure 113/77 Pulse Oximetry 100 100 100 Oxygen Delivery Nasal Cannula Nasal Cannula Oxygen Flow Rate 4 4 05/01/24 13:15 05/01/24 13:16 05/01/24 13:45 Temperature Pulse Rate 98 97 98 Respiratory Rate 22 H 22 H Blood Pressure 94/79 L 120/74 Pulse Oximetry 100 98 99 Oxygen Delivery Nasal Cannula Nasal Cannula Oxygen Flow Rate 4 4 05/01/24 13:46 05/01/24 14:00 05/01/24 14:01 Temperature Pulse Rate 98 94 95 Respiratory Rate 19 22 H Blood Pressure 134/70 Pulse Oximetry 99 100 100 Oxygen Delivery Nasal Cannula Oxygen Flow Rate 4 05/01/24 14:15 05/01/24 14:16 05/01/24 14:30 Temperature Pulse Rate 96 94 97 Respiratory Rate 14 15 21 H Blood Pressure 130/70 Pulse Oximetry 98 98 100 Oxygen Delivery Nasal Cannula Oxygen Flow Rate 4 05/01/24 14:31 05/01/24 14:45 05/01/24 14:46 Temperature Pulse Rate 96 104 H 97 Respiratory Rate 19 35 H 21 H Blood Pressure 143/104 H 131/73 Pulse Oximetry 100 98 98 Oxygen Delivery Nasal Cannula Nasal Cannula Oxygen Flow Rate 4 4 05/01/24 15:00 05/01/24 15:05 05/01/24 16:12 Temperature 97.7 F 98.7 F Pulse Rate 93 96 Respiratory Rate 20 20 Blood Pressure 134/72 135/67 Pulse Oximetry 97 99 97 Oxygen Delivery Nasal Cannula Nasal Cannula Oxygen Flow Rate 4 4 4 05/01/24 20:00 05/01/24 20:00 05/01/24 20:00 Temperature 98.7 F Pulse Rate 106 H 106 H 106 H Respiratory Rate 20 20 Blood Pressure 144/79 H Pulse Oximetry 96 96 Oxygen Delivery Nasal Cannula Nasal Cannula Oxygen Flow Rate 4 4 05/02/24 00:00 05/02/24 00:00 05/02/24 04:00 Temperature 98.1 F Pulse Rate 91 91 100 Respiratory Rate 18 Blood Pressure 142/80 H Pulse Oximetry 97 Oxygen Delivery Nasal Cannula Oxygen Flow Rate 4 05/02/24 04:00 Temperature 98.3 F Pulse Rate 100 Respiratory Rate 20 Blood Pressure Pulse Oximetry 98 Oxygen Delivery Nasal Cannula Oxygen Flow Rate 4 Intake/Output Intake/Output: Intake & Output 04/29/24 04/30/24 05/01/24 05/02/24 23:59 23:59 23:59 23:59 Intake Total 1690 1090 Output Total 875 1000 Balance 815 90 Meds/Results Medications: Active Medications Generic Name Dose Route Start Last Admin Trade Name Freq PRN Reason Stop Dose Admin Acetaminophen 650 mg 05/01/24 16:15 Acetaminophen 325 Mg Tablet PO Q4H PRN Mild Pain (1-3) or Fever Hydrocodone Bitart/Acetaminophen 1 tab 05/01/24 19:34 05/02/24 10:15 Hydrocodone/Acetaminophen (*Crx) 5-325 Mg Tablet PO 1 tab Q6H PRN Administration Pain Rated 4-6 Albuterol/Ipratropium 3 ml 05/02/24 12:30 Ipratropium 0.5 Mg/Albuterol Sulfate 2.5 Mg Ampul.Neb 3 Ml INHALATION Q6HRT [facility] Aspirin 81 mg 05/02/24 09:00 Aspirin 81 Mg Enteric Tablet PO DAILY [facility] Azelastine HCl 1 spray 05/01/24 21:00 05/02/24 08:54 Azelastine Hcl Nasal 0.1% 137 Mcg/Spr 30 Ml Btl NASAL 1 spray Q12HR [facility] Administration Clopidogrel Bisulfate 75 mg 05/02/24 09:00 Clopidogrel Bisulfate 75 Mg Tablet PO QAM [facility] Enoxaparin Sodium 40 mg 05/02/24 09:00 Enoxaparin 40 Mg/0.4 Ml Syringe SUB-Q DAILY [facility] Fluticasone Propionate 2 spray 05/01/24 21:00 05/01/24 20:42 Fluticasone Propionate 0.05% Na Spr 16 Gm Btl (*Bkc) NASAL 2 spray Q12HR [facility] Administration Guaifenesin 1,200 mg 05/01/24 21:00 05/02/24 10:05 Guaifenesin 12 Hr 600 Mg Tabcr PO 1,200 mg Q12HR [facility] Administration Ipratropium [place] 2 spray 05/01/24 17:00 05/02/24 08:53 Ipratropium Nasal [place] 0.06% 15 Ml Bottle NASAL 2 spray TID [facility] Administration Levofloxacin 500 mg 05/02/24 08:40 05/02/24 10:04 Levofloxacin 500 Mg Tablet PO 500 mg Q24H [facility] Administration Losartan Potassium 25 mg 05/02/24 09:00 05/02/24 10:07 Losartan Potassium 25 Mg Tablet PO 25 mg DAILY [facility] Administration Metronidazole 500 mg 05/02/24 09:00 05/02/24 10:03 Metronidazole 250 Mg Tablet PO 500 mg TID [facility] Administration Nicotine 1 patch 05/01/24 16:50 05/02/24 10:02 Nicotine (*Pbkc) 21 Mg Patch TRANSDERM 1 patch DAILY [facility] Administration Ondansetron HCl 4 mg 05/01/24 16:15 Ondansetron Inj 4 Mg/2 Ml Vial IV PUSH Q6H PRN Nausea And Vomiting Pantoprazole Sodium 40 mg 05/02/24 09:00 05/02/24 10:02 Pantoprazole Sodium Iv 40 Mg Vial IV PUSH 40 mg Q12HR [facility] Administration Pravastatin Sodium 20 mg 05/02/24 09:00 05/02/24 10:07 Pravastatin Sodium 20 Mg Tablet PO 20 mg DAILY [facility] Administration Prednisone 40 mg 05/02/24 09:45 05/02/24 10:05 Prednisone 20 Mg Tablet PO 40 mg DAILY@0800 [facility] Administration Tamsulosin HCl 0.4 mg 05/02/24 09:30 05/02/24 10:05 Tamsulosin Hcl 0.4 Mg Capsule PO 0.4 mg QAM [facility] Administration Verapamil HCl 120 mg 05/02/24 09:00 05/02/24 10:04 Verapamil Hcl Er 120 Mg Tablet PO 120 mg DAILY [facility] Administration Vitamin D 1,000 units 05/01/24 21:00 05/01/24 20:40 Cholecalciferol 1,000 Units Tablet PO 1,000 units HS [facility]IA Administration Zafirlukast 20 mg 05/01/24 21:00 05/02/24 10:07 Zafirlukast 20 Mg Tablet PO 20 mg Q12HR [facility]IA Administration Radiology Results: ITS Impressions Chest X-Ray 05/01/24 12:46 IMPRESSION: No acute cardiopulmonary pathology. Chest CTA 05/01/24 13:37 IMPRESSION: 1. No pulmonary embolism. 2. Emphysematous changes of the lungs. 3. Nodule in the left upper lobe measuring 6 mm. Follow-up CT is advised in 6 months. 4. Hyperdense area in the right kidney upper pole. Further evaluation advised. Abdomen/Pelvis CT 05/02/24 10:00 IMPRESSION: 1. Left inguinal hernia containing fat. 2. Bilateral kidney masses, which may be hemorrhagic cysts or less likely renal cell carcinoma. Abdomen CT or MRI without and with contrast is recommended. Labs Labs: Laboratory Results - last 24 hr 05/01/24 05/01/24 05/01/24 12:26 12:35 15:55 WBC 19.7 H RBC 3.71 L Hgb 11.0 L Hct 35.2 L MCV 94.9 MCH 29.6 MCHC 31.3 L RDW 13.5 Plt Count 367 MPV 8.1 L Immature Gran % (Auto) 0.6 H Neut % (Auto) 92.2 H Lymph % (Auto) 2.0 L [place] % (Auto) 4.4 Eos % (Auto) 0.5 L Baso % (Auto) 0.3 Lymph # (Auto) 0.40 L [place] # (Auto) 0.87 Eos # (Auto) 0.10 Baso # (Auto) 0.06 Abs Immat Gran (auto) 0.12 H Absolute Neuts (auto) 18.19 H Absolute Nucleated RBC 0.00 Total Counted Neutrophils % (Manual) Band Neutrophils % Lymphocytes % (Manual) Monocytes % (Manual) Eosinophils % (Manual) Basophils % (Manual) Nucleated RBC % 0.0 Abs Neuts (Manual) Abs Lymphs (Manual) Abs Monocytes (Manual) Absolute Eos (Manual) Abs Basophils (Manual) Platelet Estimate Schistocytes PT 10.3 INR 0.9 APTT 30.0 D-Dimer 0.68 H* Puncture Site Right radial ABG pH 7.45 ABG pCO2 37.0 ABG pO2 84.2 ABG HCO3 25.4 ABG O2 Saturation 96.4 ABG Base Excess 1.6 Oxyhemoglobin 95.0 O2 Delivery Device Nasal cannula O2 Liters/Min 4.0 Sodium 137 Potassium 3.8 Chloride 96 L Carbon Dioxide 31 Anion Gap 10 BUN 16 Creatinine 1.55 H Estim Creat Clear Calc 48 Estimated GFR 45 L Glucose 107 H Calculated Osmolality 285 Lactic Acid 2.7 H 1.7 Calcium 9.8 Magnesium Total Bilirubin 0.3 AST 17 ALT 17 Alkaline Phosphatase 84 Troponin I 19.4 NT-Pro-B Natriuret Pep 217 H Total Protein 8.1 Albumin 3.7 TSH 1.33 Influenza A (RT-PCR) Negative Influenza B (RT-PCR) Negative RSV (RT-PCR) Negative SARS-CoV-2 RNA (RT-PCR) Negative 05/02/24 05:11 WBC 8.0 RBC 3.21 L Hgb 9.4 L Hct 29.9 L MCV 93.1 MCH 29.3 MCHC 31.4 L RDW 13.1 Plt Count 337 MPV 8.3 L Immature Gran % (Auto) Not Reportable Neut % (Auto) Not Reportable Lymph % (Auto) Not Reportable [place] % (Auto) Not Reportable Eos % (Auto) Not Reportable Baso % (Auto) Not Reportable Lymph # (Auto) Not Reportable [place] # (Auto) Not Reportable Eos # (Auto) Not Reportable Baso # (Auto) Not Reportable Abs Immat Gran (auto) Not Reportable Absolute Neuts (auto) Not Reportable Absolute Nucleated RBC Not Reportable Total Counted 100 Neutrophils % (Manual) 96 H Band Neutrophils % 0 Lymphocytes % (Manual) 2 L Monocytes % (Manual) 2 L Eosinophils % (Manual) 0 L Basophils % (Manual) 0 Nucleated RBC % Not Reportable Abs Neuts (Manual) 7.68 H Abs Lymphs (Manual) 0.16 L Abs Monocytes (Manual) 0.16 Absolute Eos (Manual) 0.00 L Abs Basophils (Manual) 0.00 Platelet Estimate Adequate Schistocytes Not Reportable PT INR APTT D-Dimer Puncture Site ABG pH ABG pCO2 ABG pO2 ABG HCO3 ABG O2 Saturation ABG Base Excess Oxyhemoglobin O2 Delivery Device O2 Liters/Min Sodium 138 Potassium 5.3 H Chloride 101 Carbon Dioxide 31 Anion Gap 6 BUN 18 Creatinine 1.37 H Estim Creat Clear Calc 55 Estimated GFR 52 L Glucose 144 H Calculated Osmolality 290 Lactic Acid Calcium 9.5 Magnesium 1.9 Total Bilirubin 0.2 AST 12 L ALT 15 L Alkaline Phosphatase 75 Troponin I NT-Pro-B Natriuret Pep Total Protein 6.6 Albumin 3.3 L TSH Influenza A (RT-PCR) Influenza B (RT-PCR) RSV (RT-PCR) SARS-CoV-2 RNA (RT-PCR) Quality VTE Prophylaxis VTE prophylaxis: pharmacologic ordered -Patient's previous records reviewed on admission -ER notes reviewed in detail on admission -discussed all findings and current treatment plan with patient/Family/POA -Consultations reviewed for recommendations -Patient's disposition for safe discharge discussed with patient case manager Dictation performed by [employer] direct speech recognition software, therefore advanced manager variants and typographical errors may occur. Hospitalist MIPS Advance Care Plan I have confirmed that the patient's Advanced Care Plan is present, code status is documented, or surrogate decision maker is listed in patient medical record.: Yes Medication Reconciliation I have utilized all available resources to obtain, update and review the patients current medications (includes all prescriptions, OTC, herbals, cannabis, and nutritional supplements).: Yes The patient is not eligible for med reconciliation; the patient is in a emergent medical situation where delaying treatment would jeopardize the patients health.: No
[2024-05-02] MEDS: FLUTICASONE PROPIONATE 0.05% NA SPR 16 GM BTL (*BKC) 2 SPRAY NASAL ×2 (11:17→20:05)
[2024-05-02] MEDS: IPRATROPIUM 0.5 MG/ALBUTEROL SULFATE 2.5 MG AMPUL.NEB 3 ML INHALATION ×3 (11:40→23:36)
[2024-05-02] MEDS: ALBUTEROL SULFATE (*SP) INHALER 2 PUFF INHALATION (16:00)
[2024-05-02] MEDS: CHOLECALCIFEROL 1,000 UNITS TABLET 1000 UNITS PO (20:05)
[2024-05-03] VITALS (16 sets, daily range): BP systolic 122–137; BP diastolic 65–96; PULSE 93–116; RESP 16–24; TEMP 36.2–36.7; O2SAT 92–100
[2024-05-03] MEDS: ALBUTEROL SULFATE (*SP) INHALER 2 PUFF INHALATION (04:08)
[2024-05-03 05:32] LABS: Basophils Absolute Auto 0.01 K/mm3 (0.00-0.10); Basophils Percent Auto 0.1 % (0.0-1.0); Eosinophils Absolute Auto 0.01 K/mm3 (0.02-0.50); Eosinophils Percent Auto 0.1 % (1.0-6.0); Hematocrit 30.1 % (37.0-46.0); Hemoglobin 9.4 g/dL (12.4-15.3); Immature Granulocyte Absolute 0.07 K/mm3 (0.00-0.00); Immature Granulocyte Percent A 0.6 % (0.0-0.0); Lymphocytes Absolute Auto 0.33 K/mm3 (1.10-4.50); Lymphocytes Percent Auto 2.9 % (18.0-42.0); Mean Corpuscular HGB Conc 31.2 g/dL (32-36); Mean Corpuscular Hemoglobin 29.7 pg (27.0-31.0); Mean Platelet Volume 8.1 fl (8.7-11.0); Monocytes Percent Auto 6.2 % (2.0-11.0); Neutrophils Absolute Auto 10.25 K/mm3 (1.70-7.20); Neutrophils Percent Auto 90.1 % (50.0-70.0); Platelet Count Result 327 K/mm3 (150-420); Red Blood Count 3.17 M/mm3 (4.70-6.10); Red Cell Distribution Width 13.3 % (11.6-14.4); White Blood Count 11.4 K/mm3 (4.8-10.8)
[2024-05-03] MEDS: IPRATROPIUM 0.5 MG/ALBUTEROL SULFATE 2.5 MG AMPUL.NEB 3 ML INHALATION ×3 (05:34→16:54)
[2024-05-03 05:54] LABS: Alanine Aminotransferase 12 U/L (16-63); Albumin Level 3.4 g/dL (3.4-5.0); Alkaline Phosphatase 68 U/L (46-116); Anion Gap 7 mmol/L (4-12); Aspartate Amino Transferase 10 U/L (15-37); Bilirubin,Total 0.2 mg/dL (0.00-1.00); Blood Urea Nitrogen 19 mg/dL (7-18); Calcium 9.3 mg/dL (8.5-10.1); Carbon Dioxide 31 mmol/L (21-32); Chloride 97 mmol/L (98-108); Estimated CRCL calculation 52 ml/min; Estimated Glomerular Filt Rate 49; Glucose 136 mg/dL (70-99); Osmolality Calculated 284 mOsm/kg (285-295); Potassium 3.9 mmol/L (3.5-5.1); Sodium 135 mmol/L (136-145); Total Protein 7.2 g/dL (6.4-8.2)
[2024-05-03] MEDS: HYDROcodone/acetaminophen (*CRX) 5-325 MG TABLET 1 TAB PO ×3 (05:59→18:45)
--- NOTE | 2024-05-03 09:02 | P.PNIM_ITS ---
Progress Note: A&P Assessment and Plan (1) Acute exacerbation of chronic obstructive pulmonary disease: Code(s): J44.1 - Chronic obstructive pulmonary disease with (acute) exacerbation Status: Acute Assessment and Plan: * patient has history of severe COPD with emphysema and history of asthma, he is a patient of Dr. Nicole who states that he is end-stage COPD. he wears 4-6 L at home as needed and currently smokes 1 pack per day. * code status reviewed and he will talk with his family about being a modified code status or DNR. He is also seeking to get POA paperwork done and he is talking about having his sister as his POA. * continue DuoNebs * will start prednisone 40 mg daily starting tomorrow * patient had loading dose of Solu-Medrol 125 mg IV push while in the ED * continue guaifenesin 1200 mg p.o. b.i.d. 05/02/2024 * resume patient's Levaquin for his diverticulitis which will cover for any underlying potential pneumonia but chest CT was clear infiltrates * patient continues on 4 L nasal cannula * started DuoNebs and transitioned to 40 prednisone daily * patient typically uses his rescue albuterol inhaler up to 6 times daily found at bedside had been using overnight removed and sent to pharmacy 05/03/24: * added Mucomyst nebulizer * trazodone patient having difficulty sleeping * at incentive spirometer (2) Diverticulitis: Code(s): K57.92 - Diverticulitis of intestine, part unspecified, without perforation or abscess without bleeding Status: Acute Assessment and Plan: * patient recently started on Levaquin and Flagyl for diverticulitis * continue low residue diet * Patient reports that he had bright red blood per rectum at 1st with his diverticulitis flare up and has now become dark and tarry. He was supposed to follow up with GI doctor on Tuesday however he did not have a ride to the appointment. He will need to follow up with the GI doctor as an outpatient for EGD/ colonoscopy. * Hemoglobin 11.0 today 05/02/24 * resumed his Levaquin and Flagyl for 3 more days * CT abdomen pending * hemoglobin dropped will do anemia workup 05/03/24: * Hgb 9.4 today will resume ASA and plavix * patient would like to follow-up O/P with GI (3) Anemia: Code(s): D64.9 - Anemia, unspecified Status: Acute Assessment and Plan: patient was scheduled to have a GI outpatient appointment on Sunday 04/30 did not have transportation and missed it * HGB 9.4 from 11.0 * Reported blood in stool * occult stool ordered * holding ASA, Plavix, lovenox * CT ABD pending * Protonix BID IVP * F/U Hgb 05/03 if hemoglobin continues to drop will likely need transferred for GI consult 05/03/24: * Hgb 9.4 today will resume ASA and plavix * patient would like to follow-up O/P with GI (4) Lung nodule: Code(s): R91.1 - Solitary pulmonary nodule Status: Acute Assessment and Plan: * chest CTA showed nodule in the left upper lobe measuring 6 mm * patient will need follow-up CT in 6 months * Dr. Corey kimball (5) Lesion of right [place] kidney: Code(s): N28.9 - Disorder of kidney and ureter, unspecified Status: Acute Assessment and Plan: * incidental finding on CTA of chest showed hyperdense area in the right kidney upper pole which may be a mass or hemorrhagic cyst * will get ultrasound of kidneys (6) Asthma: Code(s): J45.909 - Unspecified asthma, uncomplicated Status: Acute Assessment and Plan: * continue Zafirlukast * continue DuoNebs * Will hold prednisone 5 mg tablet, home dose * will start Solu-Medrol 40 mg t.i.d., was going to put him on prednisone 40 mg daily however he states he can not tolerate higher doses of prednisone??? * patient received 125 mg IV push Solu-Medrol while in the ED * followed by Dr. Nicole (7) GERD (gastroesophageal reflux disease): Code(s): K21.9 - Gastro-esophageal reflux disease without esophagitis Status: Acute Assessment and Plan: * continue famotidine (8) Hypertension: Code(s): I10 - Essential (primary) hypertension Status: Acute Assessment and Plan: * blood pressure ranging 131/73 to 135/67 * continue verapamil and losartan (9) Hyperlipidemia: Code(s): E78.5 - Hyperlipidemia, unspecified Status: Acute Assessment and Plan: * continue aspirin, Plavix, and pravastatin (10) Nicotine dependence: Code(s): F17.200 - Nicotine dependence, unspecified, uncomplicated Status: Acute Assessment and Plan: * current every day smoker * nicotine patch ordered (11) Hepatitis C: Code(s): B19.20 - Unspecified viral hepatitis C without hepatic coma Status: Acute Assessment and Plan: * history of hepatitis-C status post treatment (12) BPH (benign prostatic hyperplasia): Code(s): N40.0 - Benign prostatic hyperplasia without lower urinary tract symptoms Status: Acute Assessment and Plan: patient reported inability to empty bladder fully * Started flomax (13) Sepsis: Qualifiers: Acute respiratory failure type: with hypoxia Sepsis acute organ dysfunction status: with acute organ dysfunction Sepsis type: sepsis due to unspecified organism Severe sepsis acute organ dysfunction type: acute respiratory failure Severe sepsis shock status: without septic shock Qualified Code(s): A41.9 - Sepsis, unspecified organism; R65.20 - Severe sepsis without septic shock; J96.01 - Acute respiratory failure with hypoxia Code(s): A41.9 - Sepsis, unspecified organism Status: Resolved Assessment and Plan: initially meeting sepsis criteria with heart rate of 102-106, respiratory rate 20 2-24, white blood cell count 19.7, acute kidney injury with creatinine of 1.55, lactic acid 2.7 initially * patient was given 1 L of normal saline while in the ED with improvement in his heart rate and respiratory rate * blood cultures were obtained and pending * will repeat lactic acid * patient received a dose of Zosyn while in the ED * Will switch to Rocephin and azithromycin (14) Pneumonia: Qualifiers: Pneumonia type: due to unspecified organism Laterality: right Lung location: middle lobe of lung Qualified Code(s): J18.9 - Pneumonia, unspecified organism Code(s): J18.9 - Pneumonia, unspecified organism Status: Ruled-out Assessment and Plan: * chest x-ray was negative for any acute cardiopulmonary process * chest CTA was negative for PE, emphysema changes of the lungs, nodule in the left upper lobe measuring 6 mm * continue to wean O2 for sat greater than 92%, currently on 4 L nasal cannula * continue DuoNebs * patient was given Zosyn while in the ED * they will transition to Rocephin and azithromycin * respiratory panel negative for influenza a and B, RSV, COVID Plan Code status: Full code per patient DVT prophylaxis: SCD's Stress ulcer prophylaxis: Protonix 40 BID PT/OT notes: Ambulatory Disposition: patient was admitted to the medical unit for further evaluation and treatment of COPD exacerbation and diverticulitis patient has had some blood in stool and hemoglobin has dropped. will do anemia workup if there is some concern for active GI bleed will transfer for further evaluation by GI if stable have patient follow-up outpatient. patient will continue treatment for COPD exacerbation plan to discharge home when medically stable Time Spent With Patient Time with patient: 15 - 25 minutes Subjective Date/time seen: 05/03/24 09:02 Interval history: Patient is a 68-year-old male admitted for further evaluation and treatment of COPD exacerbation and diverticulitis. 05/03/2024: Patient still with severe productive cough and moderate to severe scattered wheezing throughout lung lee. Still with tachycardia and having difficulty clearing his secretions. HGB stable. Review of Systems Review of Systems: All systems reviewed & are unremarkable except as noted in HPI and below Exam Const: General: uncomfortable Other: SOB worse with exertion, ABD discomfort on 4L NC supplemental oxygen HENMT: Mouth: Yes moist mucous membranes Eyes: Pupils: Equal, round and reactive pupils present Neck: Neck: supple and no JVD Resp: Auscultation: wheezes scattered wheezes Other: Moderate productive cough with thick secretions Cardio: Rate: tachycardic GI: Auscultation: abnormal bowel sounds ( hyperactive) Skin: General skin exam: normal color and no rashes or lesions noted Wounds: no wounds Neuro: General: gait normal Cranial nerves: Yes Equal, round and reactive pupils present Speech: normal speech Extrem: General: normal to inspection Psych: Mental Status: mental status grossly normal Affect: Anxious affect present Objective Data Vital Signs Vital Signs: Vital Signs - 24 hr 05/02/24 11:38 05/02/24 11:46 05/02/24 12:00 Temperature Pulse Rate 98 101 H 102 H Respiratory Rate 20 20 Blood Pressure Pulse Oximetry 100 100 Oxygen Delivery Oxygen Flow Rate 4 05/02/24 12:00 05/02/24 15:50 05/02/24 15:51 Temperature 98 F 97.6 F Pulse Rate 102 H 98 97 Respiratory Rate 22 H 22 H Blood Pressure 138/88 136/78 Pulse Oximetry 97 96 Oxygen Delivery Nasal Cannula Nasal Cannula Oxygen Flow Rate 4 4 05/02/24 18:01 05/02/24 18:20 05/02/24 19:33 Temperature Pulse Rate 97 112 H 105 H Respiratory Rate 22 H 20 Blood Pressure Pulse Oximetry 96 97 Oxygen Delivery Oxygen Flow Rate 4 05/02/24 20:00 05/02/24 23:31 05/02/24 23:36 Temperature 97.4 F L Pulse Rate 97 98 Respiratory Rate 19 Blood Pressure 132/65 Pulse Oximetry 100 100 Oxygen Delivery Nasal Cannula Oxygen Flow Rate 4 4 05/02/24 23:59 05/03/24 00:00 05/03/24 04:00 Temperature 98.1 F 97.8 F Pulse Rate 96 111 H Respiratory Rate 20 22 H Blood Pressure 131/67 124/65 Pulse Oximetry 93 93 92 Oxygen Delivery Nasal Cannula Nasal Cannula Oxygen Flow Rate 4 3 4 05/03/24 04:00 05/03/24 05:35 05/03/24 05:44 Temperature Pulse Rate 98 102 H 106 H Respiratory Rate 16 20 Blood Pressure Pulse Oximetry 98 100 Oxygen Delivery Oxygen Flow Rate 4 4 05/03/24 07:45 05/03/24 08:00 05/03/24 08:00 Temperature 97.7 F Pulse Rate 110 H 103 H Respiratory Rate 16 16 Blood Pressure 134/96 H Pulse Oximetry 96 96 Oxygen Delivery Nasal Cannula Nasal Cannula Oxygen Flow Rate 4 4 Intake/Output Intake/Output: Intake & Output 04/30/24 05/01/24 05/02/24 05/03/24 23:59 23:59 23:59 23:59 Intake Total 1690 3765 700 Output Total 875 2700 1750 Balance 815 1065 -1050 Meds/Results Medications: Active Medications Generic Name Dose Route Start Last Admin Trade Name Freq PRN Reason Stop Dose Admin Acetaminophen 650 mg 05/01/24 16:15 Acetaminophen 325 Mg Tablet PO Q4H PRN Mild Pain (1-3) or Fever Hydrocodone Bitart/Acetaminophen 1 tab 05/01/24 19:34 05/03/24 05:59 Hydrocodone/Acetaminophen (*Crx) 5-325 Mg Tablet PO 1 tab Q6H PRN Administration Pain Rated 4-6 Albuterol 2 puff 05/02/24 10:44 05/03/24 04:08 Albuterol Sulfate (*Sp) Inhaler INHALATION 2 puff Q4H PRN Administration shortness of breath Albuterol/Ipratropium 3 ml 05/02/24 12:30 05/03/24 05:34 Ipratropium 0.5 Mg/Albuterol Sulfate 2.5 Mg Ampul.Neb 3 Ml INHALATION 3 ml Q6HRT GIA Administration Aspirin 81 mg 05/02/24 09:00 05/02/24 11:14 Aspirin 81 Mg Enteric Tablet PO Not Given DAILY [facility] Azelastine HCl 1 spray 05/01/24 21:00 05/02/24 20:05 Azelastine Hcl Nasal 0.1% 137 Mcg/Spr 30 Ml Btl NASAL 1 spray Q12HR GIA Administration Clopidogrel Bisulfate 75 mg 05/02/24 09:00 05/02/24 11:15 Clopidogrel Bisulfate 75 Mg Tablet PO Not Given QAM [facility] Enoxaparin Sodium 40 mg 05/02/24 09:00 05/02/24 11:16 Enoxaparin 40 Mg/0.4 Ml Syringe SUB-Q Not Given DAILY [facility] Fluticasone Propionate 2 spray 05/01/24 21:00 05/02/24 20:05 Fluticasone Propionate 0.05% Na Spr 16 Gm Btl (*Bkc) NASAL 2 spray Q12HR GIA Administration Guaifenesin 1,200 mg 05/01/24 21:00 05/02/24 20:05 Guaifenesin 12 Hr 600 Mg Tabcr PO 1,200 mg Q12HR GIA Administration Ipratropium [place] 2 spray 05/01/24 17:00 05/02/24 15:59 Ipratropium Nasal [place] 0.06% 15 Ml Bottle NASAL 2 spray TID GIA Administration Levofloxacin 500 mg 05/02/24 08:40 05/02/24 10:04 Levofloxacin 500 Mg Tablet PO 500 mg Q24H GIA Administration Losartan Potassium 25 mg 05/02/24 09:00 05/02/24 10:07 Losartan Potassium 25 Mg Tablet PO 25 mg DAILY GIA Administration Metronidazole 500 mg 05/02/24 09:00 05/02/24 16:04 Metronidazole 250 Mg Tablet PO 500 mg TID GIA Administration Nicotine 1 patch 05/01/24 16:50 05/02/24 10:02 Nicotine (*Pbkc) 21 Mg Patch TRANSDERM 1 patch DAILY GIA Administration Ondansetron HCl 4 mg 05/01/24 16:15 Ondansetron Inj 4 Mg/2 Ml Vial IV PUSH Q6H PRN Nausea And Vomiting Pantoprazole Sodium 40 mg 05/02/24 09:00 05/02/24 20:04 Pantoprazole Sodium Iv 40 Mg Vial IV PUSH 40 mg Q12HR GIA Administration Pravastatin Sodium 20 mg 05/02/24 09:00 05/02/24 10:07 Pravastatin Sodium 20 Mg Tablet PO 20 mg DAILY GIA Administration Prednisone 40 mg 05/02/24 09:45 05/02/24 10:05 Prednisone 20 Mg Tablet PO 40 mg DAILY@0800 GIA Administration Tamsulosin HCl 0.4 mg 05/02/24 09:30 05/02/24 10:05 Tamsulosin Hcl 0.4 Mg Capsule PO 0.4 mg QAM GIA Administration Verapamil HCl 120 mg 05/02/24 09:00 05/02/24 10:04 Verapamil Hcl Er 120 Mg Tablet PO 120 mg DAILY GIA Administration Vitamin D 1,000 units 05/01/24 21:00 05/02/24 20:05 Cholecalciferol 1,000 Units Tablet PO 1,000 units HS GIA Administration Zafirlukast 20 mg 05/01/24 21:00 05/02/24 20:05 Zafirlukast 20 Mg Tablet PO 20 mg Q12HR GIA Administration Radiology Results: ITS Impressions Chest X-Ray 05/01/24 12:46 IMPRESSION: No acute cardiopulmonary pathology. Chest CTA 05/01/24 13:37 IMPRESSION: 1. No pulmonary embolism. 2. Emphysematous changes of the lungs. 3. Nodule in the left upper lobe measuring 6 mm. Follow-up CT is advised in 6 months. 4. Hyperdense area in the right kidney upper pole. Further evaluation advised. Abdomen/Pelvis CT 05/02/24 10:00 IMPRESSION: 1. Left inguinal hernia containing fat. 2. Bilateral kidney masses, which may be hemorrhagic cysts or less likely renal cell carcinoma. Abdomen CT or MRI without and with contrast is recommended. Labs Labs: Laboratory Results - last 24 hr 05/03/24 05:15 WBC 11.4 H RBC 3.17 L Hgb 9.4 L Hct 30.1 L MCV 95.0 MCH 29.7 MCHC 31.2 L RDW 13.3 Plt Count 327 MPV 8.1 L Immature Gran % (Auto) 0.6 H Neut % (Auto) 90.1 H Lymph % (Auto) 2.9 L [place] % (Auto) 6.2 Eos % (Auto) 0.1 L Baso % (Auto) 0.1 Lymph # (Auto) 0.33 L [place] # (Auto) 0.70 Eos # (Auto) 0.01 L Baso # (Auto) 0.01 Abs Immat Gran (auto) 0.07 H Absolute Neuts (auto) 10.25 H Absolute Nucleated RBC 0.00 Nucleated RBC % 0.0 Sodium 135 L Potassium 3.9 Chloride 97 L Carbon Dioxide 31 Anion Gap 7 BUN 19 H Creatinine 1.44 H Estim Creat Clear Calc 52 Estimated GFR 49 L Glucose 136 H Calculated Osmolality 284 L Calcium 9.3 Total Bilirubin 0.2 AST 10 L ALT 12 L Alkaline Phosphatase 68 Total Protein 7.2 Albumin 3.4 Quality VTE Prophylaxis VTE prophylaxis: pharmacologic ordered -Patient's previous records reviewed on admission -ER notes reviewed in detail on admission -discussed all findings and current treatment plan with patient/Family/POA -Consultations reviewed for recommendations -Patient's disposition for safe discharge discussed with employment evaluator/case manager Dictation performed by [employer] direct speech recognition software, therefore tanning salon attendant variants and typographical errors may occur. Hospitalist MIPS Advance Care Plan I have confirmed that the patient's Advanced Care Plan is present, code status is documented, or surrogate decision maker is listed in patient medical record.: Yes Medication Reconciliation I have utilized all available resources to obtain, update and review the patients current medications (includes all prescriptions, OTC, herbals, cannabis, and nutritional supplements).: Yes The patient is not eligible for med reconciliation; the patient is in a emergent medical situation where delaying treatment would jeopardize the patients health.: No
[2024-05-03] MEDS: VERAPAMIL HCL ER 120 MG TABLET PO (09:28)
[2024-05-03] MEDS: TAMSULOSIN HCL 0.4 MG CAPSULE PO (09:28)
[2024-05-03] MEDS: NICOTINE (*PBKC) 21 MG PATCH 1 PATCH TRANSDERM (09:28)
[2024-05-03] MEDS: metroNIDAZOLE 250 MG TABLET 500 MG PO ×3 (09:29→18:08)
[2024-05-03] MEDS: levoFLOXacin 500 MG TABLET PO (09:29)
[2024-05-03] MEDS: guaiFENesin 12 HR 600 MG TABCR 1200 MG PO ×2 (09:29→21:00)
[2024-05-03] MEDS: ZAFIRLUKAST 20 MG TABLET PO ×2 (09:30→21:00)
[2024-05-03] MEDS: LOSARTAN POTASSIUM 25 MG TABLET PO (09:30)
[2024-05-03] MEDS: PRAVASTATIN SODIUM 20 MG TABLET PO (09:30)
[2024-05-03] MEDS: predniSONE 20 MG TABLET 40 MG PO (09:30)
[2024-05-03] MEDS: IPRATROPIUM NASAL SPRAY 0.06% 15 ML BOTTLE 2 SPRAY NASAL ×3 (09:31→18:08)
[2024-05-03] MEDS: FLUTICASONE PROPIONATE 0.05% NA SPR 16 GM BTL (*BKC) 2 SPRAY NASAL ×2 (09:31→21:01)
[2024-05-03] MEDS: AZELASTINE HCL NASAL 0.1% 137 MCG/SPR 30 ML BTL 1 SPRAY NASAL ×2 (09:31→21:01)
[2024-05-03] MEDS: ACETAMINOPHEN 325 MG TABLET 650 MG PO (09:40)
[2024-05-03] MEDS: ACETYLCYSTEINE 20% INHAL SOLN 800 MG/4 ML VIAL 200 MG INHALATION ×2 (09:58→16:55)
[2024-05-03] MEDS: PANTOPRAZOLE 40 MG TABLET PO ×2 (14:25→21:00)
[2024-05-03] MEDS: traZODone HCL 50 MG TABLET PO (21:00)
[2024-05-03] MEDS: CHOLECALCIFEROL 1,000 UNITS TABLET 1000 UNITS PO (21:00)
[2024-05-04] VITALS (10 sets, daily range): BP systolic 122–140; BP diastolic 55–87; PULSE 93–108; RESP 18–22; TEMP 36.1–36.4; O2SAT 94–99
[2024-05-04] MEDS: HYDROcodone/acetaminophen (*CRX) 5-325 MG TABLET 1 TAB PO ×2 (00:26→09:21)
[2024-05-04] MEDS: IPRATROPIUM 0.5 MG/ALBUTEROL SULFATE 2.5 MG AMPUL.NEB 3 ML INHALATION ×2 (00:26→05:38)
[2024-05-04 05:18] LABS: Basophils Absolute Auto 0.01 K/mm3 (0.00-0.10); Basophils Percent Auto 0.1 % (0.0-1.0); Eosinophils Absolute Auto 0.01 K/mm3 (0.02-0.50); Eosinophils Percent Auto 0.1 % (1.0-6.0); Hematocrit 28.6 % (37.0-46.0); Hemoglobin 9.1 g/dL (12.4-15.3); Immature Granulocyte Absolute 0.08 K/mm3 (0.00-0.00); Immature Granulocyte Percent A 0.8 % (0.0-0.0); Lymphocytes Absolute Auto 0.52 K/mm3 (1.10-4.50); Lymphocytes Percent Auto 5.1 % (18.0-42.0); Mean Corpuscular HGB Conc 31.8 g/dL (32-36); Mean Corpuscular Hemoglobin 29.8 pg (27.0-31.0); Mean Corpuscular Volume 93.8 fL (78.0-102.0); Mean Platelet Volume 8.1 fl (8.7-11.0); Monocytes Absolute Auto 0.95 K/mm3 (0.10-0.90); Monocytes Percent Auto 9.3 % (2.0-11.0); Neutrophils Absolute Auto 8.68 K/mm3 (1.70-7.20); Neutrophils Percent Auto 84.6 % (50.0-70.0); Platelet Count Result 308 K/mm3 (150-420); Red Blood Count 3.05 M/mm3 (4.70-6.10); Red Cell Distribution Width 13.6 % (11.6-14.4); White Blood Count 10.3 K/mm3 (4.8-10.8)
[2024-05-04 05:38] LABS: Alanine Aminotransferase 14 U/L (16-63); Albumin Level 3.1 g/dL (3.4-5.0); Alkaline Phosphatase 60 U/L (46-116); Anion Gap 1 mmol/L (4-12); Aspartate Amino Transferase 12 U/L (15-37); Bilirubin,Total 0.2 mg/dL (0.00-1.00); Blood Urea Nitrogen 21 mg/dL (7-18); Calcium 9.2 mg/dL (8.5-10.1); Carbon Dioxide 34 mmol/L (21-32); Chloride 97 mmol/L (98-108); Estimated CRCL calculation 56 ml/min; Estimated Glomerular Filt Rate 53; Glucose 117 mg/dL (70-99); Osmolality Calculated 278 mOsm/kg (285-295); Potassium 4.4 mmol/L (3.5-5.1); Sodium 132 mmol/L (136-145); Total Protein 6.3 g/dL (6.4-8.2)
[2024-05-04] MEDS: ACETYLCYSTEINE 20% INHAL SOLN 800 MG/4 ML VIAL 200 MG INHALATION (05:38)
--- NOTE | 2024-05-04 08:41 | P.DS_ITS ---
DS: Admitting Diagnosis Discharge Date 05/04/2024 Admitting Diagnosis COPD exacerbation/diverticulitis/Sepsis DS: Discharge Diagnosis Discharge Diagnosis (1) Acute exacerbation of chronic obstructive pulmonary disease: Code(s): J44.1 - Chronic obstructive pulmonary disease with (acute) exacerbation Status: Acute Assessment and Plan: * patient has history of severe COPD with emphysema and history of asthma, he is a patient of Dr. Nicole who states that he is end-stage COPD. he wears 4-6 L at home as needed and currently smokes 1 pack per day. * code status reviewed and he will talk with his family about being a modified code status or DNR. He is also seeking to get POA paperwork done and he is talking about having his sister as his POA. * continue DuoNebs * will start prednisone 40 mg daily starting tomorrow * patient had loading dose of Solu-Medrol 125 mg IV push while in the ED * continue guaifenesin 1200 mg p.o. b.i.d. 05/02/2024 * resume patient's Levaquin for his diverticulitis which will cover for any underlying potential pneumonia but chest CT was clear infiltrates * patient continues on 4 L nasal cannula * started DuoNebs and transitioned to 40 prednisone daily * patient typically uses his rescue albuterol inhaler up to 6 times daily found at bedside had been using overnight removed and sent to pharmacy 05/03/24: * added Mucomyst nebulizer * trazodone patient having difficulty sleeping * at incentive spirometer (2) Diverticulitis: Code(s): K57.92 - Diverticulitis of intestine, part unspecified, without perforation or abscess without bleeding Status: Acute Assessment and Plan: * patient recently started on Levaquin and Flagyl for diverticulitis * continue low residue diet * Patient reports that he had bright red blood per rectum at 1st with his diverticulitis flare up and has now become dark and tarry. He was supposed to follow up with GI doctor on Tuesday however he did not have a ride to the appointment. He will need to follow up with the GI doctor as an outpatient for EGD/ colonoscopy. * Hemoglobin 11.0 today 05/02/24 * resumed his Levaquin and Flagyl for 3 more days * CT abdomen pending * hemoglobin dropped will do anemia workup 05/03/24: * Hgb 9.4 today will resume ASA and plavix * patient would like to follow-up O/P with GI (3) Anemia: Code(s): D64.9 - Anemia, unspecified Status: Acute Assessment and Plan: patient was scheduled to have a GI outpatient appointment on Sunday 04/30 did not have transportation and missed it * HGB 9.4 from 11.0 * Reported blood in stool * occult stool ordered * holding ASA, Plavix, lovenox * CT ABD pending * Protonix BID IVP * F/U Hgb 05/03 if hemoglobin continues to drop will likely need transferred for GI consult 05/03/24: * Hgb 9.4 today will resume ASA and plavix * patient would like to follow-up O/P with GI (4) Lung nodule: Code(s): R91.1 - Solitary pulmonary nodule Status: Acute Assessment and Plan: * chest CTA showed nodule in the left upper lobe measuring 6 mm * patient will need follow-up CT in 6 months * Dr. Nicole following (5) Lesion of right [place] kidney: Code(s): N28.9 - Disorder of kidney and ureter, unspecified Status: Acute Assessment and Plan: * incidental finding on CTA of chest showed hyperdense area in the right kidney upper pole which may be a mass or hemorrhagic cyst * will get ultrasound of kidneys (6) Asthma: Code(s): J45.909 - Unspecified asthma, uncomplicated Status: Acute Assessment and Plan: * continue Zafirlukast * continue DuoNebs * Will hold prednisone 5 mg tablet, home dose * will start Solu-Medrol 40 mg t.i.d., was going to put him on prednisone 40 mg daily however he states he can not tolerate higher doses of prednisone??? * patient received 125 mg IV push Solu-Medrol while in the ED * followed by Dr. Nicole (7) GERD (gastroesophageal reflux disease): Code(s): K21.9 - Gastro-esophageal reflux disease without esophagitis Status: Acute Assessment and Plan: * continue famotidine (8) Hypertension: Code(s): I10 - Essential (primary) hypertension Status: Acute Assessment and Plan: * blood pressure ranging 131/73 to 135/67 * continue verapamil and losartan (9) Hyperlipidemia: Code(s): E78.5 - Hyperlipidemia, unspecified Status: Acute Assessment and Plan: * continue aspirin, Plavix, and pravastatin (10) Nicotine dependence: Code(s): F17.200 - Nicotine dependence, unspecified, uncomplicated Status: Acute Assessment and Plan: * current every day smoker * nicotine patch ordered (11) Hepatitis C: Code(s): B19.20 - Unspecified viral hepatitis C without hepatic coma Status: Acute Assessment and Plan: * history of hepatitis-C status post treatment (12) BPH (benign prostatic hyperplasia): Code(s): N40.0 - Benign prostatic hyperplasia without lower urinary tract symptoms Status: Acute Assessment and Plan: patient reported inability to empty bladder fully * Started flomax (13) Sepsis: Qualifiers: Acute respiratory failure type: with hypoxia Sepsis acute organ dysfunction status: with acute organ dysfunction Sepsis type: sepsis due to unspecified organism Severe sepsis acute organ dysfunction type: acute respiratory failure Severe sepsis shock status: without septic shock Qualified Code(s): A41.9 - Sepsis, unspecified organism; R65.20 - Severe sepsis without septic shock; J96.01 - Acute respiratory failure with hypoxia Code(s): A41.9 - Sepsis, unspecified organism Status: Resolved Assessment and Plan: initially meeting sepsis criteria with heart rate of 102-106, respiratory rate 20 2-24, white blood cell count 19.7, acute kidney injury with creatinine of 1.55, lactic acid 2.7 initially * patient was given 1 L of normal saline while in the ED with improvement in his heart rate and respiratory rate * blood cultures were obtained and pending * will repeat lactic acid * patient received a dose of Zosyn while in the ED * Will switch to Rocephin and azithromycin (14) Pneumonia: Qualifiers: Laterality: right Lung location: middle lobe of lung Pneumonia type: due to unspecified organism Qualified Code(s): J18.9 - Pneumonia, unspecified organism Code(s): J18.9 - Pneumonia, unspecified organism Status: Ruled-out Assessment and Plan: * chest x-ray was negative for any acute cardiopulmonary process * chest CTA was negative for PE, emphysema changes of the lungs, nodule in the left upper lobe measuring 6 mm * continue to wean O2 for sat greater than 92%, currently on 4 L nasal cannula * continue DuoNebs * patient was given Zosyn while in the ED * they will transition to Rocephin and azithromycin * respiratory panel negative for influenza a and B, RSV, COVID DS: Summary Hospital Course Reason for hospitalization: COPD exacerbation/ diverticulitis Hospital Course: Admission: Patient was a 68-year-old male with a significant past medical history of COPD, coronary artery disease, hyperlipidemia, diverticulitis, GERD, BPH, cataracts, psoriasis, hepatitis-C post treatment, current every day smoker who presented to the hospital with complaints of shortness a breath and dyspnea. patient states that he was just treated for diverticulitis Flare-up and pneumonia and was placed on Levaquin and Flagyl. he still complains of left abdominal/flank pain but admits to eating sausage earlier today that may have brought this on. He states that when he started with his diverticulitis flare-up he had bright red blood per rectum which turned to dark tarry stools. He states his stools are still dark and was referred to GI however he missed his appointment on Tuesday and needs to make another appointment for outpatient colonoscopy / EGD if necessary. He states that his breathing got considerably worse and he presented today for further evaluation. He denies any fever, chills, nausea, vomiting, diarrhea. He is short of breath at baseline and wears 4- 6 L at home for his end-stage COPD. He is currently on 4 L here. Workup in the hospital included a chest x-ray which was negative for any acute cardiopulmonary process. He had a chest CTA which was negative for PE, showed emphysema changes of the lungs, nodule in the left upper lobe measuring 6 mm, hyperdense area in the right kidney upper pole which may be a mass versus cyst. Initial labs shown a white blood cell count of 19.7, hemoglobin 11.0, INR 0.9, D-dimer was slightly elevated at 0.68, ABG was normal, creatinine 1.55, EGFR 45, lactic acid 2.7, troponin 19.4, BNP 217. Respiratory panel was negative for influenza a and B, RSV, COVID. Blood cultures were obtained and pending. EKG showed sinus rhythm with a right bundle branch block, rate of 99, QTC 434. Patient was given a dose of Zosyn, Solu-Medrol 125 mg IV push, and a DuoNeb while in the ED. He also received 1 L of normal saline. Patient initially meeting sepsis criteria with elevated heart rate of 102-106, elevated respiratory rate of 20 2-24, white blood cell count 19.7, acute kidney injury with creatinine of 1.55, lactic acid 2.7. during patient's hospitalization he continues to only require his home oxygen requirements of 4 L nasal cannula to maintain 92% however he continued to have a productive cough with thick secretions. Patient did report he recently quit smoking likely leading to some of his moderate productive cough and secretions. Patient continued to improve with guaifenesin incentive spirometer as well as DuoNebs however did add Mucomyst nebulizers which greatly improved the clearance of his secretions. After further review do not appear patient had any underlying pneumonia due to the fact he was getting outpatient therapy with Levaquin and Flagyl for his diverticulitis at which time I resume his oral Levaquin and Flagyl which he completed while he was hospitalized. There was some concern for possible GI bleed and patient had missed his GI appointment due to transportation problems. Hemoglobin however did remain stable while hospitalized but it was recommended patient follow-up with GI as soon as possible after discharge for outpatient evaluation and need for EGD and colonoscopy. Patient did have some mild to moderate abdominal pain at which ti me I did do a CT abdomen which only showed diverticulosis with no diverticulitis. Patient reports he does follow with pulmonology outpatient and they are monitoring the lung nodule that was present on scan he is scheduled to have follow-up CT chest for further evaluation in 6 months. Patient was discharged back to home to continue his current home medications did discharged on 3 more days of oral prednisone at 40 mg and instructed to return to his home dose after completing those 3 days. patient was also noted to have bilateral renal masses noted recommended further evaluation patient instructed to follow- up with primary care physician for outpatient CT or MRI with and without contrast for further evaluation. Patient had overall improvement of symptoms he was tolerating all oral intake with no nausea vomiting in no Blood in stool noted was passing gas and having BMs. patient was seen assessed on day discharge in no acute distress reports he felt back to his baseline and was st ill currently on his 4 L of supplemental oxygen maintaining 92% denied any chest pain and stated abdominal pain had improved. Patient acknowledged and agreed with our discharge plan and he was discharged home with follow-up planned for pulmonology, primary and GI. Status at Discharge Functional status at discharge: independent ambulation Overall status at discharge: patient is back to baseline Time Spent with Patient Time attestation: Total time spent providing and/or coordinating discharge services: Time spent: Greater than 30 minutes Exam Const: General: comfortable and no acute distress Other: 4L NC supplemental oxygen HENMT: Mouth: Yes moist mucous membranes Eyes: General: appearance normal, both eyes and all related structures Neck: Neck: supple and no JVD Resp: Auscultation: wheezes scattered wheezes Other: Moderate productive cough with thick secretions Cardio: Rate: tachycardic GI: GI Palp: Yes Soft to palpation Auscultation: normal bowel sounds Skin: General skin exam: normal color and no rashes or lesions noted Wounds: no wounds Neuro: General: gait normal Cranial nerves: Yes Equal, round and reactive pupils present Speech: normal speech Extrem: General: normal to inspection Psych: Mental Status: mental status grossly normal Affect: Anxious affect present DS: Data Data Completed and Pending Labs on day of discharge: Labs from last 24 hours 05/04/24 05/04/24 05:07 05:06 WBC 10.3 RBC 3.05 L Hgb 9.1 L Hct 28.6 L MCV 93.8 MCH 29.8 MCHC 31.8 L RDW 13.6 Plt Count 308 MPV 8.1 L Immature Gran % (Auto) 0.8 H Neut % (Auto) 84.6 H Lymph % (Auto) 5.1 L [place] % (Auto) 9.3 Eos % (Auto) 0.1 L Baso % (Auto) 0.1 Lymph # (Auto) 0.52 L [place] # (Auto) 0.95 H Eos # (Auto) 0.01 L Baso # (Auto) 0.01 Abs Immat Gran (auto) 0.08 H Absolute Neuts (auto) 8.68 H Absolute Nucleated RBC 0.00 Nucleated RBC % 0.0 Sodium 132 L Potassium 4.4 Chloride 97 L Carbon Dioxide 34 H Anion Gap 1 L BUN 21 H Creatinine 1.34 H Estim Creat Clear Calc 56 Estimated GFR 53 L Glucose 117 H Calculated Osmolality 278 L Calcium 9.2 Total Bilirubin 0.2 AST 12 L ALT 14 L Alkaline Phosphatase 60 Total Protein 6.3 L Albumin 3.1 L Preliminary micro results at discharge 05/01/24 12:36 Blood Culture - Preliminary Blood 05/01/24 12:35 Blood Culture - Preliminary Blood Imaging Radiologist's impression: PULMONARY ARTERIES: No pulmonary embolus. VISUALIZED THORACIC INLET: Normal. MEDIASTINUM: Aorta/coronary arteries: Mild atheromatous disease. Heart/other: The heart is not enlarged. Lymph nodes: No mediastinal or hilar adenopathy. LUNGS: 6 mm nodule is seen in the left upper lobe. No pulmonary masses. No infiltrates or effusions. No pneumothorax. Emphysematous changes of the lungs with multiple bullae. VISUALIZED UPPER ABDOMEN: Hyperdense areas seen in the right kidney region may be a mass or hemorrhagic cyst. Ultrasound evaluation advised. Left kidney cysts are also noted with focus of parenchymal calcification. Otherwise, the visualized upper abdomen is normal. MUSCULOSKELETAL: Soft tissues: The superficial soft tissues are normal. Bones: Age appropriate degenerative changes of the spine. IMPRESSION: 1. No pulmonary embolism. 2. Emphysematous changes of the lungs. 3. Nodule in the left upper lobe measuring 6 mm. Follow-up CT is advised in 6 months. 4. Hyperdense area in the right kidney upper pole. Further evaluation advised. EXAMINATION: CT abdomen pelvis wo con DATE: 05/02/2024 09:51 INDICATION: Diverticulitis. Abdominal pain. TECHNIQUE: Computed tomography (CT) of the abdomen and pelvis was performed without intravenous contrast. Automated exposure control and iterative reconstruction technique were employed. The dose-length product was 1113.35 mGy- cm. COMPARISON: None. FINDINGS: The visualized portions of the lung bases demonstrate emphysema and chronic interstitial lung disease. No pleural effusion. The heart size is normal. No pericardial effusion. The liver, gallbladder, spleen, pancreas, adrenal glands are normal. There are cysts in the kidneys measuring up to 2.8 cm on the left. There are multiple masses in the kidneys measuring soft tissue attenuation measuring up to 3.5 cm on the left. There is a 2 mm stone in right kidney. There are parenchymal calcifications in the kidneys. There is a left inguinal hernia containing fat. There is diverticulosis of the colon without evidence of diverticulitis. The appendix is normal. There are no dilated loops of bowel. There are no pathologically enlarged lymph nodes. There is no free intraperitoneal fluid. There is mild lumbar spondylosis. IMPRESSION: 1. Left inguinal hernia containing fat. 2. Bilateral kidney masses, which may be hemorrhagic cysts or less likely renal cell carcinoma. Abdomen CT or MRI without and with contrast is recommended. Discharge Plan Discharge Attending physician on discharge: [place] Consulting providers: Gissel Lopez Discharging Clinician: Gissel Lopez Anticipated Discharge Date/Time: 05/04/24 08:19 Patient Disposition: Home, Self-Care Activity: may shower and as tolerated Diet: heart healthy Discharge Instructions: COPD: * Resume 4L supplemental oxygen may increase to 6L with activity * I have prescribed prednisone and Erythromycin please complete as directed * encourage frequent rest periods * encouraged continued smoking cessation * follow-up with your chemistry instructor Dr. Wood as scheduled Diverticulitis * You completed your antibiotic during her hospitalization * You will need to re-schedule your Appointment with industrial roof plumber for EGD/ colonoscopy * I have prescribed a Protonix daily please take as indicated * please resume a high-fiber diet Bilateral Kidney mass * Please follow-up with Primary care DR Menendez for a Abdomen CT or MRI without and with contrast for further evaluation [place] Nodule * Follow-up CT Chest in 6 months (Dr. Wood following) Appointment: Discuss with Primary Care/Dr German about GI referral How can you care for yourself at home? ? Keep track of any new symptoms or changes in your symptoms. ? Rest until you feel better. ? Be safe with medicines. Take your medicines exactly as prescribed. Call your doctor if you think you are having a problem with your medicine. ? Do not drive after taking a prescription pain medicine. ? Ensure to follow-up with primary care physician as indicated and provide updated medication list provided to you at discharge. When should you call for help? Call 911 anytime you think you may need emergency care. For example, call if: ? You passed out (lost consciousness). Call your doctor now or seek immediate medical care if: ? You have new symptoms like fever, difficulty breathing, Chest pain, vomiting, or rash. ? You have new or different pain. ? You are confused and are having trouble thinking clearly. ? Your symptoms are getting worse. Watch closely for changes in your health, and be sure to contact your doctor if: ? You do not get better as expected. Patient Instructions: Antibiotic Form, Diverticulitis (DC), Fall Prevention for Older Adults (DC), COPD (Chronic Obstructive Pulmonary Disease) (DC), Anemia (DC), Chronic Lung Disease and Infection Prevention (DC), Pulmonary Rehabilitation (DC), Energy Conservation Techniques (DC), Dyspnea Scale and Exercise (DC), Nutrition Guidelines for People with COPD (DC) Patient Language: Thai Stand Alone Forms: General Discharge Information Follow-up/Referrals: Franklin German MD [Primary Care Provider] - 2 weeks (Will need CT ABD or MRI with and without contrast for bilateral kidney mass Discuss with PCP r/t GI consult) Dick Nicole MD [Physician] - Keep Reg. Scheduled Appt. Discharge Medications: New nicotine [Nicoderm CQ] 21 mg/24 hr Patch 24 Hour 1 patch transdermal DAILY Qty: 28 0RF trazodone 50 mg Tablet 50 mg PO HS Qty: 30 0RF prednisone 20 mg Tablet 40 mg PO DAILY@0800 Qty: 6 0RF tamsulosin 0.4 mg Capsule 0.4 mg PO QAM Qty: 30 0RF pantoprazole 40 mg Tablet,Delayed Release (Dr/Ec) 40 mg PO DAILY Qty: 30 0RF docusate sodium [Dulcolax Stool Softener (dss)] 100 mg capsule 100 mg PO BID PRN (Reason: constipation) Qty: 60 0RF Continued ipratropium-albuterol 0.5 mg-3 mg(2.5 mg base)/3 mL solution for nebulization 3 ml inhalation QID PRN (Reason: shortness of breath or wheezing) Qty: 90 3RF hydrocodone-acetaminophen 5-325 mg tablet 2 tablet PO Q12H budesonide-formoterol [Symbicort] 160-4.5 mcg/actuation HFA aerosol inhaler 2 puff INHALATION Q12H guaifenesin 600 mg tablet extended release 12hr 1,200 mg PO BID Qty: 120 6RF famotidine 40 mg tablet 40 mg PO HS Qty: 30 0RF verapamil 120 mg capsule,ext rel. pellets 24 hr 120 mg PO DAILY theophylline 400 mg tablet extended release 24 hr 400 mg PO Q24H cholecalciferol (vitamin D3) 10 mcg (400 unit) capsule 25 mcg PO HS Rx Instructions: 1000 units tab daily prednisone 5 mg tablet 5 mg PO DAILY fluticasone propionate 50 mcg/actuation spray,suspension 2 spray INTRANASAL BID aspirin 81 mg tablet,delayed release (DR/EC) 81 mg PO DAILY losartan 25 mg tablet See Rx Instructions .ROUTE .COMPLEX Qty: 90 2RF Dose Instruction: TAKE 1 TABLET BY MOUTH DAILY Rx Instructions: TAKE 1 TABLET BY MOUTH DAILY Spiriva Respimat 2.5 mcg/actuation mist 2 puff inhalation QAM Qty: 4 11RF roflumilast 500 mcg tablet 500 mcg PO DAILY Qty: 90 2RF pravastatin 20 mg tablet See Rx Instructions .ROUTE .COMPLEX Qty: 90 2RF Dose Instruction: TAKE 1 TABLET BY MOUTH DAILY Rx Instructions: TAKE 1 TABLET BY MOUTH DAILY azelastine 137 mcg (0.1 %) spray,non-aerosol 1 spray intranasal Q12H Qty: 30 5RF Rx Instructions: administer into each nostril clopidogrel 75 mg tablet See Rx Instructions .ROUTE .COMPLEX Qty: 90 2RF Dose Instruction: TAKE 1 TABLET BY MOUTH DAILY Rx Instructions: TAKE 1 TABLET BY MOUTH DAILY zafirlukast 20 mg tablet See Rx Instructions .ROUTE .COMPLEX Qty: 180 6RF Dose Instruction: TAKE 1 TABLET BY MOUTH TWICE DAILY ON AN EMPTY STOMACH AT LEAST 1 HOUR BEFORE OR 2 HOURS AFTER A MEAL Rx Instructions: TAKE 1 TABLET BY MOUTH TWICE DAILY ON AN EMPTY STOMACH AT LEAST 1 HOUR BEFORE OR 2 HOURS AFTER A MEAL ipratropium bromide 42 mcg (0.06 %) spray,non-aerosol 2 spray intranasal TID Qty: 15 5RF Rx Instructions: administer into each nostril albuterol sulfate 90 mcg/actuation HFA aerosol inhaler 2 puff inhalation Q4H Qty: 8.5 6RF Discontinued metronidazole 500 mg tablet 500 mg PO TID Patient Comments: stop date 05-04-24 levofloxacin 500 mg tablet 500 mg PO Q24H Patient Comments: stop date 05-04-24 Date of admission: 05/01/24 14:13 Primary Care Provider: Franklin German Admitting Provider: [place] Attending physician on admission: Alyson Berrios Condition: Improved Quality VTE Prophylaxis VTE prophylaxis: pharmacologic ordered -Patient's previous records reviewed on admission -ER notes reviewed in detail on admission -discussed all findings and current treatment plan with patient/Family/POA -Consultations reviewed for recommendations -Patient's disposition for safe discharge discussed with bottle caser Dictation performed by [employer] direct speech recognition software, therefore shaft repairer variants and typographical errors may occur. Hospitalist MIPS Heart Failure (Exclusion) Patient has history of Heart Transplant or Left Ventricular Assistive Device?: No IF YES, STOP HERE Heart Failure (Qualifier) Patient has current or prior documentation of LVEF less than or equal to 40%, or mod/servere depressed LVSF?: No IF NO, STOP HERE
[2024-05-04] MEDS: AZELASTINE HCL NASAL 0.1% 137 MCG/SPR 30 ML BTL 1 SPRAY NASAL (09:20)
[2024-05-04] MEDS: IPRATROPIUM NASAL SPRAY 0.06% 15 ML BOTTLE 2 SPRAY NASAL (09:20)
[2024-05-04] MEDS: FLUTICASONE PROPIONATE 0.05% NA SPR 16 GM BTL (*BKC) 2 SPRAY NASAL (09:20)
[2024-05-04] MEDS: ZAFIRLUKAST 20 MG TABLET PO (09:21)
[2024-05-04] MEDS: LOSARTAN POTASSIUM 25 MG TABLET PO (09:21)
[2024-05-04] MEDS: PRAVASTATIN SODIUM 20 MG TABLET PO (09:21)
[2024-05-04] MEDS: guaiFENesin 12 HR 600 MG TABCR 1200 MG PO (09:21)
[2024-05-04] MEDS: predniSONE 20 MG TABLET 40 MG PO (09:21)
[2024-05-04] MEDS: metroNIDAZOLE 250 MG TABLET 500 MG PO (09:22)
[2024-05-04] MEDS: TAMSULOSIN HCL 0.4 MG CAPSULE PO (09:22)
[2024-05-04] MEDS: VERAPAMIL HCL ER 120 MG TABLET PO (09:22)
[2024-05-04] MEDS: levoFLOXacin 500 MG TABLET PO (09:22)
[2024-05-04] MEDS: ASPIRIN 81 MG ENTERIC TABLET PO (09:22)
[2024-05-04] MEDS: CLOPIDOGREL BISULFATE 75 MG TABLET PO (09:22)
[2024-05-04] MEDS: NICOTINE (*PBKC) 21 MG PATCH 1 PATCH TRANSDERM (09:22)
[2024-05-04] MEDS: PANTOPRAZOLE 40 MG TABLET PO (09:22)
--- NOTE | 2024-05-04 10:50 | PC.NURSE ---
Patient discharging home. All belongings gathered together and sent home with patient. Home medications returned. Patient dressed self in clothing from home, no assistance required. Patient has no IV site at time of discharge. All discharge instructions and education reviewed with patient. Patient states understanding. Denies any further questions at discharge. This nurse accompanied patient to front door via wheelchair, left via private vehicle drive by self. Patient had home 02. Ensures 02 was properly turned on and patient was wearing correctly at time of discharge.
--- NOTE | 2024-05-06 15:50 | PC.NURSE ---
Left for return call to facility with number to 2nd floor to discuss his stay for call back.
--- NOTE | 2024-05-07 12:33 | PC.NURSE ---
Patient returns call to facility. very anxious, trying to make specialist appointments. He explains he felt week and tired on discharge felt he understood all instructions when he left but read paperwork when he got home to be sure. Did want to know why he would not continue on Prednisone 40 mg, explained he would take 40mg until gone then continue with home prednisone. Explained to make sure he followed up with his family physician and specialist. Patient very appreciative to the care he recieved while he was here and apologized if he seemed crabby at anyone but feels is was just becouse he was sick. He says, again I am very grateful.
== END 2024-05-04 10:50 | disposition home or self-care (01) ==
LOC: CHSED 14:03 → CHS2ND 14:43
PROVIDERS: Admitting Provider Internal Medicine; Emergency Provider Emergency Medicine; PCP Internal Medicine; Visit Provider Nurse Practitioner Acute Care
DX: A41.9 Sepsis, unspecified organism (principal); R65.20 Severe sepsis without septic shock; J96.01 Acute respiratory failure with hypoxia; J44.1 Chronic obstructive pulmonary disease with (acute) exacerbation; J43.9 Emphysema, unspecified; R91.1 Solitary pulmonary nodule; Z99.81 Dependence on supplemental oxygen; N17.9 Acute kidney failure, unspecified; K57.30 Diverticulosis of large intestine without perforation or abscess without bleeding; D64.9 Anemia, unspecified; N28.9 Disorder of kidney and ureter, unspecified; I25.10 Atherosclerotic heart disease of native coronary artery without angina pectoris; I11.0 Hypertensive heart disease with heart failure; I50.9 Heart failure, unspecified; I35.8 Other nonrheumatic aortic valve disorders; F17.210 Nicotine dependence, cigarettes, uncomplicated; B19.20 Unspecified viral hepatitis C without hepatic coma; N40.0 Benign prostatic hyperplasia without lower urinary tract symptoms; E78.5 Hyperlipidemia, unspecified; K21.9 Gastro-esophageal reflux disease without esophagitis; H26.9 Unspecified cataract; L40.9 Psoriasis, unspecified; J32.9 Chronic sinusitis, unspecified; M19.90 Unspecified osteoarthritis, unspecified site; Z20.822 Contact with and (suspected) exposure to COVID-19; Z79.02 Long term (current) use of antithrombotics/antiplatelets; Z79.51 Long term (current) use of inhaled steroids; Z79.52 Long term (current) use of systemic steroids; Z79.82 Long term (current) use of aspirin; Z79.899 Other long term (current) drug therapy
CPT/HCPCS: 36415; 36600; 71045; 71275; 74176; 80053; 82805; 83605; 83735; 83880; 84443; 84484; 85025; 85380; 85610; 85730; 87040; 87637; 93005; 94640; 96365; 96375; 96376; 99285; A9270; G0378; J1650; J2470; J2543; J2919; J7030; J7512; Q9967

== ENCOUNTER 2024-06-01 12:30 | Outpatient (CLI) | payer MEDICARE, MEDICAID, SELFPAY ==
--- NOTE | ~2024-06-01 | CT_ITS ---
CT Scan of the Chest without Contrast: Clinical Indication: Pulmonary nodule, interstitial lung disease Technique: Contiguous sections were acquired throughout the chest without intravenous contrast. Dose reduction technique was used on this scan by utilizing automated exposure control and iterative recon struction technique. The dose-length product (DLP) was 294.36 mGy-cm. COMPARISON: 05/01/2024 Findings: There is no evidence of any significant mediastinal, hilar or axillary lymphadenopathy. The mediastin al soft tissues appear normal. Oh coronary artery stents. There is no evidence of pleural or pericardial effusion. There is severe emphysema, with mild bibasilar chronic interstitial disease. Stable 6 mm left upper l obe pulmonary nodule (axial image 45). Images through the upper abdomen reveal no abnormalities. Impression: Stable 6 mm left upper lobe pulmonary nodule. Severe emphysema and mild bibasilar chronic interstitial disease. Reviewed, dictated and finalized at [facility]. Impression: Stable 6 mm left upper lobe pulmonary nodule. Severe emphysema and mild bibasilar chronic interstitial disease.
--- OUTSIDE RECORDS SUMMARY | 2024-06-01 12:34 | XMS_ITS | Clinical Summary ---
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 Gender Identity Not on file Sexual Orientation [...] - 2023-25 season) 2023, 06/06/2020 Influenza Vaccine (Season Ended) 2024 11/06/19 16 Hepatitis B Screening Completed 07/25/2015, 016 Medical Devices Implanted Type Area 911 Telecommunicator Device Identifier Shelf Expiration Date Model / Serial / Lot Medtronic Card Vasc Surgery 3.0 X 15mm Zeeshan [place]ady Rx Coronary Stent [id number] - [id number] Implanted:Qty: 1 on 09/02/2022 by Yoav Longoria MD at [facility] Medtronic [facility] Vasc Surgery 04/11/2025 [id number] / / [id number] Medtronic [facility] Vas Surgery 3.5 X 22mm [place] Grady Rx Coronary Stent [id number] - [id number] Implanted:Qty: 1 on 09/02/2022 by Yoav Longoria MD at [facility] Medtronic [facility] Vasc Surgery 06/03/2025 [id number] / / [id number] [facility] [facility] Angio-Seal Vip 6fr Closere Device [id number] - [id number] Implanted:Qty: 1 on 09/02/2022 by Yoav Longoria MD at [facility] [facility] 03/09/2023 [id number] / / [id number] Explanted Type Area 911 Telecommunicator Device Identifier Shelf Expiration Date Model / Serial / Lot Medtronic [facility] Vasc Surgery 3.0 X 15mm Zeeshan [place]ady Rx Coronary Stent [id number] - [id number] Explanted:Qty: 1 on 09/02/2022 [facility] 04/02/2025 [id number] / / [id number] Insurance [facility] MEDICARE ADVANTAGE IDPA [facility] MEDICARE ADVANTAGE IDPA Advance Directives For more information, please contact: [phone] * Full Code (Latest Code Status on File) Date Activated Date Inactivated Comments 01/23/2017 9:16 PM 01/26/2017 9:55 PM Care Teams Certified Physician'S Assistant Relationship Specialty Start Date End Date Franklin German MD PCP - General Internal Medicine 07/07/22
--- OUTSIDE RECORDS SUMMARY | 2024-06-01 12:34 | XMS_ITS | Clinical Summary ---
Author Organization [facility] [employer] Address [address] [place] [address] Care Team Providers Care Staff Counsel Name Role Phone Chemo Fields MD Primary Care Provider [phone] Source Comments [facility] [employer],non-owned Affiliates and Associated Physician Practices is amultiple site organization consisting of ambulatory clinics and hospital sitesin [place], [place], [place] and [place]. This disclosure is being madepursuant to the Care Everywhere program and may not contain all information available regarding this patient. Last updated 17.[employer] Medications * Be aware that medications may not be up to date on this document. Alwaysverify current medications with the patient. HYDROcodone-zach taminophen (NORCO) 10-325 MG tablet Take 1 tablet by mouth. 02/16/2016 Active aspirin (ASPIRIN) 325 MG tablet Take 325 mg by mouth q4h PRN (Pain). 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 The modifications have not been cleared or approved by the FDA. This assay has been validated pursuant to the CLIA regulations and is used for clinical purposes. This test was performed using the AARON(R)AmpliPrep/ AARON(R)TaqMan(R)HCV Test,v2.0. For more information on this test, go to: http://education.[employer].StartBull/faq/PDW42r3 (This link is being provided for informational/ educational purposes only.) REPORT COMMENT: IS PATIENT ON HEPARIN, ARGATROBAN OR DABIGATRAN?->N Test Performed at: [facility] [address] [place] [address] KALYANI SELLERS DO,MPH 08/14/2016 9:06 AM CDT 08/14/2016 9:06 AM CDT Sadia Perez AIRCRAFT ELECTRICIAN-FLOOR POLISHER LAB - SEROLOGY ORDER HUMBERTO Final Result [facility] ([facility]) [id number] from Last 3 Months or Most Recently Relevant to Health Maintenance Care Teams Staff Counsel Relationship Specialty Start Date End Date Chemo Fields MD [address] [facility] [address] [address] [facility] [address] [place] [address] PCP - General 06/16/15
--- OUTSIDE RECORDS SUMMARY | 2024-06-01 12:34 | XMS_ITS | Clinical Summary ---
Author Organization [facility] Address [facility] [place] [address] Care Team Providers Care Parachute Taper Name Role Phone Franklin German MD Primary Care Provider [phone] Tio Eliudeaston Berry DO Unavailable Yojana Granda MD Unavailable [phone] Allergies No known active allergies Medications triamcinolone [...] Vaccines (1 of 2) 06/27/2007 Pneumococcal Vaccine: 50+ Years (2 of 2 - PCV) 07/24/2016 07/25/2015 Annual Medicare Wellness Visit 2022 COVID-19 Vaccine (3 - 2023-2 5 season) 2023 07/04/2020, 06/06/2020 RSV Immunization or 60+ Years (1 - [...] age to complete this topic Insurance [place] [address] [place] [address] Care Teams Parachute Taper Relationship Specialty Start Date End Date Franklin German MD [address] [place] [id number] PCP - General INTERNAL MEDICINE 04/21/22 Eliud Kinsey DO [address] [place] [address] INTERNAL MEDICINE 06/17/22 Yojana Granda MD [address] [place] [address] CRITICAL CARE MEDICINE 06/17/22
--- OUTSIDE RECORDS SUMMARY | 2024-06-01 12:34 | XMS_ITS | Referral Summary ---
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 Gender Identity Not on file Sexual [...] on file Medical Devices Implanted Type Area Private Banker Device Identifier Shelf Expiration Date Model / Serial / Lot Medtronic [facility] Surgery 3.0 X 15mm [place] Rx Coronary Stent [id number] - [id number] Implanted:Qty: 1 on 09/02/2022 [facility] Surgery 04/11/2025 [id number] / / [id number] Medtronic [facility] Surgery 3.5 X 22mm Zeeshan [place] Rx Coronary Stent [id number] - [id number] Implanted:Qty: 1 on 09/02/2022 by [facility] Surgery 06/03/2025 [id number] / / [id number] [facility] [employer] [facility] Angio-Seal Vip 6fr Closere Device [id number] - [id number] Implanted:Qty: 1 on 09/02/2022 by Yoav Longoria MD at [facility] [employer] 03/09/2023 [id number] / / [id number] Explanted Type Area Private Banker Device Identifier Shelf Expiration Date Model / Serial / Lot Medtronic Card Vasc Surgery 3.0 X 15mm Zeeshan [place] Rx Coronary Stent [id number] - [id number] Explanted:Qty: 1 on 09/02/2022 [facility] 04/02/2025 [id number] / / [id number] Insurance [facility] MEDICARE ADVANTAGE [facility] Address: [address] [address] [place] [address] [facility] MEDICARE ADVANTAGE [facility] MEDICARE ADVANTAGE IDPA Advance Directives For more information, please contact: [phone] * Full Code (Latest Code Status on File) Date Activated Date Inactivated Comments 01/23/2017 9:16 PM 01/26/2017 9:55 PM Care Teams Pharmacy Informaticist Relationship Specialty Start Date End Date Franklin German MD PCP - General Internal Medicine 07/07/22
== END 2024-06-01 12:31 | disposition home or self-care (01) ==
PROVIDERS: PCP Internal Medicine; Visit Provider Internal Medicine Pulmonary Disease
DX: J84.9 Interstitial pulmonary disease, unspecified (principal); R91.1 Solitary pulmonary nodule; J43.9 Emphysema, unspecified
CPT/HCPCS: 71250

== ENCOUNTER 2024-10-25 13:15 | Outpatient (CLI) | payer MEDICARE, MEDICAID, SELFPAY ==
--- OUTSIDE RECORDS SUMMARY | 2024-10-25 13:24 | XMS_ITS | Clinical Summary ---
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 Gender Identity Not on file Sexual Orientation [...] CDT Inhaled Oxygen Concentration - - Weight 93 kg (205 lb) 06/23/2024 12:38 PM CDT Height 172.7 cm (5' 8) 06/23/2024 12:38 PM CDT Body Mass Index 31.17 06/23/2024 12:38 PM CDT Plan of Treatment Health Maintenance [...] Fall Risk Assessment 09/04/2023 09/03/2022 Covid-19 Vaccine ( season) 2024, 06/06/2020 Influenza Vaccine (#1) 2024 11/06/2015 Hepatitis B Screening Completed 07/25/2015, 016 Medical Devices Implanted Type Area Room Service Runner Device Identifier Shelf Expiration Date Model / Serial / Lot Medtronic Card Vasc Surgery 3.0 X 15mm Zeeshan [place] Rx Coronary Stent [id number] - [id number] Implanted:Qty: 1 on 09/02/2022 by Yoav Longoria MD at [facility] Medtronic [facility] Vasc Surgery 04/11/2025 [id number] / / [id number] Medtronic [facility] Vasc Surgery 3.5 X 22mm Zeeshan [place] Rx Coronary Stent [id number] - [id number] Implanted:Qty: 1 on 09/02/2022 by Yoav Longoria MD at [facility] Medtronic [facility] Vasc Surgery 06/03/2025 [id number] / / [id number] [facility] Angio-Seal Vip 6fr Closere Device [id number] - [id number] Implanted:Qty: 1 on 09/02/2022 by Yoav Longoria MD at [facility] 03/09/2023 [id number] / / [id number] Explanted Type Area Room Service Runner Device Identifier Shelf Expiration Date Model / Serial / Lot Medtronic Card Vasc Surgery 3.0 X 15mm [place] Lenoir Rx Coronary Stent [id number] - [id number] Explanted:Qty: 1 on 09/02/2022 at [facility] Medtronic [facility] Vasc Surgery 04/02/2025 [id number] / / [id number] Insurance [facility] MEDICARE ADVANTAGE IDPA [facility] MEDICARE ADVANTAGE [facility] MEDICARE ADVANTAGE IDPA Advance Directives For more information, please contact: [phone] * Full Code (Latest Code Status on File) Date Activated Date Inactivated Comments 01/23/2017 9:16 PM 01/26/2017 9:55 PM Care Teams Fire Hydrant Operator Relationship Specialty Start Date End Date Franklin German MD PCP - General Internal Medicine 07/07/22
--- OUTSIDE RECORDS SUMMARY | 2024-10-25 13:24 | XMS_ITS | Encounter Summary ---
Author Organization [facility] Address [address] [place] [address] Care Team Providers Care Security Operations Engineer Name Role Phone Franklin German MD Primary Care Provider [phone] Reason for Referral * MRI/CAT/PET Scan (Routine) - Closed Specialty Diagnoses / Procedures Referred By Pradip mackey Referred To Contact Radiology Diagnoses Bilateral renal masses Procedures MRI Abdomen W WO Contrast Blayne Kaplan MD Phone: tel: fax: [address] [address] Referral ID Status Reason Start Date Expiration Date Visits Re quested Visits Authorized [id number] Closed 06/06/2024 07/06/2025 1 1 Encounter Details Date Type Department Care Team (Late st Contact Info) Description 06/06/2024 Community Orders [facility] [address] [place] [address] Bilateral renal masses (Primary Dx) Social History Tobacco Use Types Packs/Day Years Used Date Smoking Tobacco: Every Day Cigarettes 0.8 15 Smokeless Tobacco: Never AUDIT-C Answer Date Recorded Frequency of Alcohol [...] on file 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 Dictated by: Dick Solomon MD The radiology attending physician has personally reviewed this study, and had reviewed and/or edited this written report and agrees with it. Electronically signed by: Ramon Reno M.D. Narrative 06/25/2024 10:30 AM CDT EXAMINATION: MAGNETIC RESONANCE IMAGING OF THE ABDOMEN WITH AND WITHOUT CONTRAST HISTORY: Bilateral renal masses TECHNIQUE: Magnetic resonance imaging of the abdomen was performed prior to and following the uneventful administration of intravenous Gadolinium contrast. Protocol: Kidney Contrast: gadoterate 18 mL COMPARISON: No examinations available for comparison. FINDINGS: Liver: No significant hepatic steatosis or iron deposition. No liver surface nodularity. - Bile ducts: No biliary ductal dilation. - Focal liver lesions: No suspicious liver lesion. - Vasculature: Portal and hepatic veins are patent. Gallbladder: Normal Pancreas: Normal Spleen: Normal Adrenals: Normal Kidneys: Numerous bilateral renal cysts measuring up to 3.0 cm, most of which are simple cysts and some of which are hemorrhagic/proteinaceous with associated intrinsic T1 hyperintensity. No definite suspicious enhancing or diffusion restricting renal lesion. Other Findings: Images of bases are clear. No ascites. No abdominal lymphadenopathy. No marrow replacing lesion. Procedure Note Ramon Reno MD PhD - 06/25/2024 EXAMINATION: MAGNETIC RESONANCE IMAGING OF THE ABDOMEN WITH AND WITHOUT CONTRAST HISTORY: Bilateral renal masses TECHNIQUE: Magnetic resonance imaging of the abdomen was performed prior to and following the uneventful administration of intravenous Gadolinium contrast. Protocol: Kidney Contrast: gadoterate 18 mL COMPARISON: No examinations available for comparison. FINDINGS: Liver: No significant hepatic steatosis or iron deposition. No liver surface nodularity. - Bile ducts: No biliary ductal dilation. - Focal liver lesions: No suspicious liver lesion. - Vasculature: Portal and hepatic veins are patent. Gallbladder: Normal Pancreas: Normal Spleen: Normal Adrenals: Normal Kidneys: Numerous bilateral renal cysts measuring up to 3.0 cm, most of which are simple cysts and some of which are hemorrhagic/proteinaceous with associated intrinsic T1 hyperintensity. No definite suspicious enhancing or diffusion restricting renal lesion. Other Findings: Images of bases are clear. No ascites. No abdominal lymphadenopathy. No marrow replacing lesion. IMPRESSION: No suspicious renal lesion. Dictated by: Dick Solomon MD The radiology attending physician has personally reviewed this study, and had reviewed and/or edited this written report and agrees with it. Electronically signed by: Ramon Reno M.D. Blayne Kaplan MD IM MRI PROCEDURES F inal Result documented in this encounter Visit Diagnoses Diagnosis Bilateral renal masses- Primary Unspecified disorder of kidney and ureter Bilateral renal masses Unspecified disorder of kidney and ureter documented in this encounter Care Teams Security Operations Engineer Relationship Specialty Start Date End Date Franklin German MD PCP - General Internal Medicine 07/07/22 documented as of this encounter
--- OUTSIDE RECORDS SUMMARY | 2024-10-25 13:24 | XMS_ITS | Clinical Summary ---
Author Organization [facility] [employer] Address [address] [place] [address] Care Team Providers Care Floorleader Name Role Phone Chemo Fields MD Primary Care Provider [phone] Source Comments [facility],non-owned Affiliates and Associated Physician Practices is amultiple site organization consisting of ambulatory clinics and hospital sitesin [place], [place], [place] and [place]. This disclosure is being madepursuant to the Care Everywhere program and may not contain all information available regarding this patient. 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 The modifications have not been cleared or approved by the FDA. This assay has been validated pursuant to the CLIA regulations and is used for clinical purposes. This test was performed using the AARON(R)AmpliPrep/ AARON(R)TaqMan(R)HCV Test,v2.0. For more information on this test, go to: http://education.[employer]Zextit/faq/WUU79r0 (This link is being provided for informational/ educational purposes only.) REPORT COMMENT: IS PATIENT ON HEPARIN, ARGATROBAN OR DABIGATRAN?->N Test Performed at: [facility] [address] [place] [address] KALYANI SELLERS DO,MPH 08/14/2016 9:06 AM CDT 08/14/2016 9:06 AM CDT Sadia Perez WORKDAY FINANCIALS CONSULTANT-PULP MILL SUPERVISOR LAB - SEROLOGY ORDER HUMBERTO Final Result [facility] ([facility]) [id number] from Last 3 Months or Most Recently Relevant to Health Maintenance Care Teams Floorleader Relationship Specialty Start Date End Date Chemo Fields MD [address] [facility] [address] [facility] [address] [place] [address] PCP - General 06/16/15
[2024-10-25 13:28] LABS: Hematocrit 32.1 % (37.0-46.0); Hemoglobin 9.5 g/dL (12.4-15.3); Mean Corpuscular HGB Conc 29.6 g/dL (32-36); Mean Corpuscular Hemoglobin 27.8 pg (27.0-31.0); Mean Corpuscular Volume 93.9 fL (78.0-102.0); Platelet Count Result 344 K/mm3 (150-420); Red Blood Count 3.42 M/mm3 (4.70-6.10); White Blood Count 13.2 K/mm3 (4.8-10.8)
[2024-10-25 13:29] LABS: Add Urine Microscopic? YES; Appearance Urine Clear (Clear); Glucose Urine UA Negative (Negative); Leukocyte Esterase Ur Negative (Negative); Nitrate Urine Negative (Negative); Specific Grav Ur 1.010 (1.010-1.020)
== END 2024-10-25 13:16 | disposition home or self-care (01) ==
LOC: CHSLAB 13:18
PROVIDERS: PCP Internal Medicine; Visit Provider Internal Medicine
DX: D72.829 Elevated white blood cell count, unspecified (principal)
CPT/HCPCS: 36415; 81001; 85027

== ENCOUNTER 2024-10-31 12:54 | Outpatient (CLI) | payer MEDICARE, MEDICAID, SELFPAY ==
--- OUTSIDE RECORDS SUMMARY | 2024-10-31 12:58 | XMS_ITS | Clinical Summary ---
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 Gender Identity Not on file Sexual Orientation [...] 07/25/2015, 016 Medical Devices Implanted Type Area Chief Clinical Dietitian Device Identifier Shelf Expiration Date Model / Serial / Lot Medtronic Card Vasc Surgery 3.0 X 15mm Zeeshan [place] Rx Coronary Stent [id number] - [id number] Implanted:Qty: 1 on 09/02/2022 by Yoav Longoria MD at [facility] Medtronic [facility] Vasc Surgery 04/11/2025 [id number] / / [id number] Medtronic [facility] Vasc Surgery 3.5 X 22mm Zeeshan [place] Rx Coronary Stent [id number] - [id number] Implanted:Qty: 1 on 09/02/2022 by Yoav Longoria MD at [facility] Medtronic [facility] Vasc Surgery 06/03/2025 [id number] / / [id number] [facility] Angio-Seal Vip 6fr Closere Device [id number] - [id number] Implanted:Qty: 1 on 09/02/2022 by Yoav Longoria MD at [facility] [facility] 03/09/2023 [id number] / / [id number] Explanted Type Area Chief Clinical Dietitian Device Identifier Shelf Expiration Date Model / Serial / Lot Medtronic Card Vasc Surgery 3.0 X 15mm [place] Rx Coronary Stent [id number] - [id number] Explanted:Qty: 1 on 09/02/2022 at [facility] Medtronic [facility] Vasc Surgery 04/02/2025 [id number] / / [id number] Insurance [facility] MEDICARE ADVANTAGE IDPA [facility] MEDICARE ADVANTAGE [facility] MEDICARE ADVANTAGE IDPA Advance Directives For more information, please contact: [phone] * Full Code (Latest Code Status on File) Date Activated Date Inactivated Comments 01/23/2017 9:16 PM 01/26/2017 9:55 PM Care Teams Travel Accommodation Inspector Relationship Specialty Start Date End Date Franklin German MD PCP - General Internal Medicine 07/07/22
--- OUTSIDE RECORDS SUMMARY | 2024-10-31 12:58 | XMS_ITS | Clinical Summary ---
Author Organization [facility] Address [address] [place] [address] Care Team Providers Care Rn Registry Name Role Phone Chemo Fields MD Primary Care Provider [phone] Source Comments [facility],non-owned Affiliates and Associated Physician Practices is amultiple site organization consisting of ambulatory clinics and hospital sitesin [place], [place], [place] and [place]. This disclosure is being madepursuant to the Care Everywhere program and may not contain all information available regarding this patient. 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 The modifications have not been cleared or approved by the FDA. This assay has been validated pursuant to the CLIA regulations and is used for clinical purposes. This test was performed using the AARON(R)AmpliPrep/ AARON(R)TaqMan(R)HCV Test,v2.0. For more information on this test, go to: http://education.Ubersnap.Ranovus/faq/UBO18l4 (This link is being provided for informational/ educational purposes only.) REPORT COMMENT: IS PATIENT ON HEPARIN, ARGATROBAN OR DABIGATRAN?->N Test Performed at: [facility] [address] [place] [address] KALYANI SELLERS DO,MPH 08/14/2016 9:06 AM CDT 08/14/2016 9:06 AM CDT Sadia Perez PUBLIC TRANSIT TROLLEY DRIVER-NUISANCE WILDLIFE TRAPPER LAB - SEROLOGY ORDER HUMBERTO Final Result [facility] ([facility]) [address] from Last 3 Months or Most Recently Relevant to Health Maintenance Care Teams Rn Registry Relationship Specialty Start Date End Date Chemo Fields MD [address] [facility] [place] [address] [place] [address] PCP - General 06/16/15
--- OUTSIDE RECORDS SUMMARY | 2024-10-31 12:58 | XMS_ITS | Clinical Summary ---
Author Organization [facility] Address [facility] [place] [address] Care Team Providers Care Audograph Operator Name Role Phone Franklin German MD Primary Care Provider [phone] Tio Eliudeaston Berry DO Unavailable Yojana Granda MD Unavailable [phone] Allergies No known active allergies Medications triamcinolone [...] 10:07 AM CDT Height 172.7 cm (5' 8) 09/28/2022 10:07 AM CDT Body Mass Index [...] Wellness Visit 2022 COVID-19 Vaccine (3 - 2024-2 6 season) 2024 07/04/2020, 06/06/2020 RSV Immunization or 60+ Years [...] age to complete this topic Insurance [place] [address] Care Teams Audograph Operator Relationship Specialty Start Date End Date Franklin German MD [address] [place] [id number] PCP - General INTERNAL MEDICINE 04/21/22 Eliud Kinsey DO [address] [place] [address] INTERNAL MEDICINE 06/17/22 Yojana Granda MD [address] [place] [address] CRITICAL CARE MEDICINE 06/17/22
--- OUTSIDE RECORDS SUMMARY | 2024-10-31 12:58 | XMS_ITS | Encounter Summary ---
Author Organization [facility] Healthcare Address [address] [place] [address] Care Team Providers Care Grid Maker Name Role Phone Franklin German MD Primary Care Provider [phone] Reason for Referral * MRI/CAT/PET Scan (Routine) - Closed Specialty Diagnoses / Procedures Referred By Pradip mackey Referred To Contact Radiology Diagnoses Bilateral renal masses Procedures MRI Abdomen W WO Contrast Blayne Kaplan MD Phone: tel: fax: [address] [address] Referral ID Status Reason Start Date Expiration Date Visits Re quested Visits Authorized [id number] Closed 06/06/2024 07/06/2025 1 1 Encounter Details Date Type Department Care Team (Late st Contact Info) Description 06/06/2024 Community Orders [facility] [place] [address] [place] [address] Bilateral renal masses (Primary Dx) [...] on file 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
--- NOTE | 2024-11-23 13:47 | P.PCNPFT_ITS ---
PFT Procedure Performed PFT Procedure Performed Spirometry with Pre/Post Bronchodilator Plethysmography (Lung Vol) Diffusing Cap (DLCO) Flow Vol Loop PFT Interpretation DOS: 10/31/2024 REQUESTING: Dick Nicole MD REASON FOR TESTING: COPD PULMONARY FUNCTION TESTS Results are reliable and reproducible. Repeatability of spirometry FEV1 maneuver pre and post bronchodilator is Grade B. he was only able to perform 2 pre bronchodilator spirometry trials and 1 post bronchodilator spirometry trial. He could only perform 1 acceptable +Mater fee. He coughed excessively and had recover after this procedure [employer] Cotton Dust reference equations were used. Spirometry: The pre-bronchodilator FEV1 is 0.95 L, 32%, severely reduced. The pre-bronchodilator FVC is 3.40 L, 89%, normal. The FEV1/FVC ratio is 28%, reduced consistent with airflow obstruction. After bronchodilator, the FEV1 is 0.99 L, 33%, +3%. The post-bronchodilator FVC is 3.03 L, 79%, -11%. The FEV1/FVC ratio is 33%. Lung volumes: The total lung capacity is 8.65 L, 142%, increased. The functional residual capacity is 7.0 L, 215%, increased. The residual volume is 5.24 L, 223%, greatly increased consistent with severe air trapping. The RV/TLC is 61% greatly increased. Airway resistance is increased. Diffusion: DLCO is 6.8, 30%, severely decreased. The DLCO/VA is 1.43, 39%, minimally increased. Flow volume loop: The flow volume loop shows severe coving of the expiratory limb. IMPRESSION: This study shows extremely severe obstructive ventilatory impairment without response to bronchodilator, mild hyperinflation, severe air trapping, severe diffusion impairment with minimal improvement with correction for alveolar volume. Compared to a prior study 09/23/2023, he has had progression of his disease process. His FEV1 is worse, previously was 1.23 L, 41%, now dropped to 0.95 L, 32% which is a greater than anticipated time dependent decreased. Total lung capacity was 7.10 L, 117% now 8.65 L, 142%. residual volume was 3.54 L, 152%, now 5.24 L, 223% significantly higher indicating more air trapping. diffusion has worsened, prior DLCO 9.6, 41% now 6.8, 30%. Last year, DLCO/VA corrected to 1.9, 52%. Yojana Granda MD
== END 2024-10-31 12:55 | disposition home or self-care (01) ==
LOC: CHSCARD 12:55
PROVIDERS: PCP Internal Medicine; Visit Provider Internal Medicine Pulmonary Disease
DX: J44.9 Chronic obstructive pulmonary disease, unspecified (principal); R94.2 Abnormal results of pulmonary function studies
CPT/HCPCS: 94060; 94726; 94729

== ENCOUNTER 2024-11-07 12:38 | Outpatient (CLI) | payer MEDICARE, MEDICAID, SELFPAY ==
--- OUTSIDE RECORDS SUMMARY | 2024-11-07 12:42 | XMS_ITS | Encounter Summary ---
Author Organization [facility] Healthcare Address [address] [place] [address] Care Team Providers Care Ship Officer Name Role Phone Franklin German MD Primary Care Provider [phone] Reason for Referral * MRI/CAT/PET Scan (Routine) - Closed Specialty Diagnoses / Procedures Referred By Pradip mackey Referred To Contact Radiology Diagnoses Bilateral renal masses Procedures MRI Abdomen W WO Contrast Blayne Kaplan MD Phone: tel: fax: [address] [address] Referral ID Status Reason Start Date Expiration Date Visits Re quested Visits Authorized [id number] Closed 06/06/2024 07/06/2025 1 1 Encounter Details Date Type Department Care Team (Late st Contact Info) Description 06/06/2024 Community Orders [facility] [place] [address] [place] [address] Bilateral renal masses (Primary Dx) [...] on file 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
--- OUTSIDE RECORDS SUMMARY | 2024-11-07 12:42 | XMS_ITS | Clinical Summary ---
Author Organization [facility] Address [address] [place] [address] Care Team Providers Care Reproductive Healthcare Assistant Name Role Phone Chemo Fields MD Primary Care Provider [phone] Source Comments [facility],non-owned Affiliates and Associated Physician Practices is amultiple site organization consisting of ambulatory clinics and hospital sitesin [place], [place], [place] and [place]. This disclosure is being madepursuant to the Care Everywhere program and may not contain all information available regarding this patient. 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 The modifications have not been cleared or approved by the FDA. This assay has been validated pursuant to the CLIA regulations and is used for clinical purposes. This test was performed using the AARON(R)AmpliPrep/ AARON(R)TaqMan(R)HCV Test,v2.0. For more information on this test, go to: http://education.Twijector.restOpolis/faq/GTI55h0 (This link is being provided for informational/ educational purposes only.) REPORT COMMENT: IS PATIENT ON HEPARIN, ARGATROBAN OR DABIGATRAN?->N Test Performed at: [facility] [address] [place] [address] KALYANI SELLERS DO,MPH 08/14/2016 9:06 AM CDT 08/14/2016 9:06 AM CDT Sadia Perez GUM SPRAYER-FORM SETTER STEEL PAN FORMS LAB - SEROLOGY ORDER HUMBERTO Final Result [facility] ([facility]) [address] from Last 3 Months or Most Recently Relevant to Health Maintenance Care Teams Reproductive Healthcare Assistant Relationship Specialty Start Date End Date Chemo Fields MD [address] [facility] [address] [facility] [address] [place] [address] PCP - General 06/16/15
--- OUTSIDE RECORDS SUMMARY | 2024-11-07 12:42 | XMS_ITS | Clinical Summary ---
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 Gender Identity Not on file Sexual Orientation [...] 07/25/2015, 016 Medical Devices Implanted Type Area Grease Press Helper Device Identifier Shelf Expiration Date Model / Serial / Lot Medtronic Card Vasc Surgery 3.0 X 15mm Zeeshan [place] Rx Coronary Stent [id number] - [id number] Implanted:Qty: 1 on 09/02/2022 by Yoav Longoria MD at [facility] [employer] [facility] [place] Vasc Surgery 04/11/2025 [id number] / / [id number] Medtronic [employer] [place] Vasc Surgery 3.5 X 22mm Zeeshan [place] Rx Coronary Stent [id number] - [id number] Implanted:Qty: 1 on 09/02/2022 by Yoav Longoria MD at [facility] [employer] [place] Vasc Surgery 06/03/2025 [id number] / / [id number] [facility] Angio-Seal Vip 6fr Closere Device [id number] - [id number] Implanted:Qty: 1 on 09/02/2022 by Yoav Longoria MD at [facility] [employer] [facility] 03/09/2023 [id number] / / [id number] Explanted Type Area Grease Press Helper Device Identifier Shelf Expiration Date Model / Serial / Lot Medtronic Card Vasc Surgery 3.0 X 15mm Zeeshan [place] Rx Coronary Stent [id number] - [id number] Explanted:Qty: 1 on 09/02/2022 at [facility] [employer] [facility] [place] Vasc Surgery 04/02/2025 [id number] / / [id number] Insurance [facility] MEDICARE ADVANTAGE IDPA [facility] MEDICARE ADVANTAGE [facility] MEDICARE ADVANTAGE IDPA Advance Directives For more information, please contact: [phone] * Full Code (Latest Code Status on File) Date Activated Date Inactivated Comments 01/23/2017 9:16 PM 01/26/2017 9:55 PM Care Teams Play Writer Relationship Specialty Start Date End Date Franklin German MD PCP - General Internal Medicine 07/07/22
--- OUTSIDE RECORDS SUMMARY | 2024-11-07 12:42 | XMS_ITS | Clinical Summary ---
Author Organization [facility] Address [facility] [place] [address] Care Team Providers Care Reinforcing Steel Worker Name Role Phone Franklin German MD Primary Care Provider [phone] Tio Eliudeaston Berry DO Unavailable Yojana Granda MD Unavailable [phone] Allergies No known active allergies Medications triamcinolone [...] - 2024-2 6 season) 2024 07/04/2020, 06/06/2020 Influenza Adult (#1) 2024 11/06/2015 RSV Immunization or 60+ Years (1 [...] age to complete this topic Insurance [place] [address] MEDICARE Care Teams Reinforcing Steel Worker Relationship Specialty Start Date End Date Franklin German MD [address] [place] [address] PCP - General INTERNAL MEDICINE 04/21/22 Eliud Kinsey DO [address] [place] [address] INTERNAL MEDICINE 06/17/22 Yojana Granda MD [address] [place] [address] CRITICAL CARE MEDICINE 06/17/22
[2024-11-07 12:51] LABS: Hematocrit 32.0 % (37.0-46.0); Hemoglobin 9.6 g/dL (12.4-15.3); Mean Corpuscular HGB Conc 30.0 g/dL (32-36); Mean Corpuscular Hemoglobin 28.3 pg (27.0-31.0); Mean Corpuscular Volume 94.4 fL (78.0-102.0); Platelet Count Result 336 K/mm3 (150-420); Red Blood Count 3.39 M/mm3 (4.70-6.10); White Blood Count 14.8 K/mm3 (4.8-10.8)
== END 2024-11-07 12:39 | disposition home or self-care (01) ==
PROVIDERS: PCP Internal Medicine; Visit Provider Internal Medicine
DX: D72.829 Elevated white blood cell count, unspecified (principal)
CPT/HCPCS: 36415; 85027

== ENCOUNTER 2024-12-10 07:56 | Outpatient (CLI) | payer MEDICARE, MEDICAID, SELFPAY ==
--- NOTE | 2024-12-10 08:01 | EST_ITS ---
Patient Info Name: Mane Contreras Age: 69 years : 1955 Gender: Male Ht: 68 in Wt: 186 lbs BSA: 2.03 m2 HR: 94 bpm BP: 130 / 69 mmHg Heart Rhythm: Sinus Rhythm, Right Bundle Branch Block Technical Quality: Good Exam Date: 12/10/2024 8:01 AM Patient Status: O Admit Date: 12/10/2024 Exam Type: CA stress hu w NM A regadenoson stress test was performed. Staff Referring Physician: Eliud Kinsey DO Attending Provider: Eliud Kinsey DO Summary 1. 1. Negative lexiscan stress test for ischemic ST changes by ECG criteria. 2. 2. Stable hemodynamics throughout the test. 3. 3. Nuclear scan to follow and will be reported separately. Please correlate with it. 4. 4. Patient informed of the above results. History/Risk Factors Hypertension: Yes Dyslipidemia: Yes Coronary Artery Disease (CAD) Yes COPD: On Meds, On Home Oxygen Protocol: LEXISCAN Stress ECG Details Stage: REST Duration (min): 3 min : 2 sec HR (bpm): 94 SBP (mmHg): 130 DBP (mmHg): 69 Stage: REST Duration (min): 18 min : 29 sec HR (bpm): 84 SBP (mmHg): 130 DBP (mmHg): 69 Stage: STAGE 1 Duration (min): 0 min : 21 sec HR (bpm): 80 SBP (mmHg): 130 DBP (mmHg): 69 Stage: RECOVERY Duration (min): 0 min : 38 sec HR (bpm): 97 SBP (mmHg): 130 DBP (mmHg): 69 Stage: RECOVERY Duration (min): 1 min : 38 sec HR (bpm): 105 SBP (mmHg): 84 DBP (mmHg): 54 Stage: RECOVERY Duration (min): 2 min : 38 sec HR (bpm): 99 SBP (mmHg): 91 DBP (mmHg): 57 Stage: RECOVERY Duration (min): 3 min : 38 sec HR (bpm): 95 SBP (mmHg): 91 DBP (mmHg): 57 Stage: RECOVERY Duration (min): 4 min : 38 sec HR (bpm): 94 SBP (mmHg): 91 DBP (mmHg): 57 Stage: RECOVERY Duration (min): 5 min : 38 sec HR (bpm): 90 SBP (mmHg): 117 DBP (mmHg): 59 Stage: RECOVERY Duration (min): 6 min : 24 sec HR (bpm): 90 SBP (mmHg): 117 DBP (mmHg): 59 Rest HR: 84 bpm Peak HR: 105 bpm Rest Sys BP: 130 mmHg Peak Sys BP: 117 mmHg Max Pred HR: 153 bpm % Max Pred HR: 69 % Target HR: 130 bpm Max RPP: 12,285 bpm*mmHg BP Response: Normal blood pressure response Termination Reason: Completed Protocol Cardiac Symptoms: None Total Time: 0 min : 21 sec Rest Almeida BP: 69 mmHg Peak Almeida BP: 59 mmHg Total Dose: 0.4 mg Resting ECG Normal sinus rhythm, RBBB. Stress ECG No abnormal ST/T wave changes. Arrhythmias No arrhythmias were observed during the examination. Report Signatures
--- OUTSIDE RECORDS SUMMARY | 2024-12-10 08:02 | XMS_ITS | Clinical Summary ---
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 Gender Identity Not on file Sexual Orientation [...] 07/25/2015, 016 Medical Devices Implanted Type Area Hand Candy Molder Device Identifier Shelf Expiration Date Model / Serial / Lot Medtronic Card Vasc Surgery 3.0 X 15mm Zeeshan [place] Rx Coronary Stent [id number] - [id number] Implanted:Qty: 1 on 09/02/2022 by Yoav Longoria MD at [facility] [employer] [facility] Vasc Surgery 04/11/2025 [id number] / / [id number] Medtronic [facility] Vasc Surgery 3.5 X 22mm [place] Rx Coronary Stent [id number] - [id number] Implanted:Qty: 1 on 09/02/2022 by Yoav Longoria MD at [facility] [employer] [facility] Vasc Surgery 06/03/2025 [id number] / / [id number] Psychiatric Angio-Seal Vip 6fr Closere Device [id number] - [id number] Implanted:Qty: 1 on 09/02/2022 by Yoav Longoria MD at [facility] [employer] [facility] 03/09/2023 [id number] / / [id number] Explanted Type Area Hand Candy Molder Device Identifier Shelf Expiration Date Model / Serial / Lot Medtronic Card Vasc Surgery 3.0 X 15mm Zeeshan [place] Rx Coronary Stent [id number] - [id number] [facility] 04/02/2025 [id number] / / [id number] Insurance [facility] MEDICARE ADVANTAGE [facility] MEDICARE Address: [address] [address] [place] [address] IDPA [facility] MEDICARE ADVANTAGE [facility] MEDICARE Address: [address] [address] [place] [address] [facility] MEDICARE ADVANTAGE [facility] MEDICARE Address: [address] [address] [place] [address] [employer]PA Advance Directives For more information, please contact: [phone] * Full Code (Latest Code Status on File) Date Activated Date Inactivated Comments 01/23/2017 9:16 PM 01/26/2017 9:55 PM Care Teams Entry Specialist Relationship Specialty Start Date End Date Franklin German MD PCP - General Internal Medicine 07/07/22
--- OUTSIDE RECORDS SUMMARY | 2024-12-10 08:02 | XMS_ITS | Encounter Summary ---
Author Organization [facility] Healthcare Address [address] [place] [address] Care Team Providers Care Health Nurse Name Role Phone Franklin German MD Primary Care Provider [phone] Reason for Referral * MRI/CAT/PET Scan (Routine) - Closed Specialty Diagnoses / Procedures Referred By Pradip mackey Referred To Contact Radiology Diagnoses Bilateral renal masses Procedures MRI Abdomen W WO Contrast Blayne Kaplan MD Phone: tel: fax: [address] [address] Referral ID Status Reason Start Date Expiration Date Visits Re quested Visits Authorized [id number] Closed 06/06/2024 07/06/2025 1 1 Encounter Details Date Type Department Care Team (Late st Contact Info) Description 06/06/2024 Community Orders [facility] [place] [address] [place] [address] Bilateral renal masses (Primary Dx) [...] on file 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
--- OUTSIDE RECORDS SUMMARY | 2024-12-10 08:02 | XMS_ITS | Clinical Summary ---
Author Organization [facility] Address [facility] [place] [address] Care Team Providers Care Assembler Piano Name Role Phone Franklin German MD Primary Care Provider [phone] Tio Eliudeaston Berry DO Unavailable Yojana Granda MD Unavailable [phone] Allergies No known active allergies Medications triamcinolone [...] Years (1 - 1-dose 75+ series) 2032 Hepatitis A Vaccines Aged Out 06/15/2015 No long er eligible based on patient's age to complete this topic Meningococcal B Vaccine Aged Out No l onger eligible based on patient's age to complete this topic Meningococcal Vaccine Aged Out No michael chito eligible based on patient's age to complete this topic RSV Immunizations Under 20 Months Aged Out No longer eligible b ased on patient's age to complete this topic Insurance MEDICAID [facility] MEDICARE Care Teams Assembler Piano Relationship Specialty Start Date End Date Franklin German MD [address] [place] [address] PCP - General INTERNAL MEDICINE 04/21/22 Eliud Kinsey DO [address] [place] [address] INTERNAL MEDICINE 06/17/22 Yojana Granda MD [address] [place] [address] CRITICAL CARE MEDICINE 06/17/22
--- OUTSIDE RECORDS SUMMARY | 2024-12-10 08:02 | XMS_ITS | Clinical Summary ---
Author Organization [facility] [employer] Address [address] [place] [address] Care Team Providers Care Tree Surgeon Name Role Phone Chemo Fields MD Primary Care Provider [phone] Source Comments [facility] [employer],non-owned Affiliates and Associated Physician Practices is amultiple site organization consisting of ambulatory clinics and hospital sitesin [place], [place], [place] and [place]. This disclosure is being madepursuant to the Care Everywhere program and may not contain all information available regarding this patient. 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 The modifications have not been cleared or approved by the FDA. This assay has been validated pursuant to the CLIA regulations and is used for clinical purposes. This test was performed using the AARON(R)AmpliPrep/ AARON(R)TaqMan(R)HCV Test,v2.0. For more information on this test, go to: http://education.Docurated.My Rental Units/faq/SPY44c9 (This link is being provided for informational/ educational purposes only.) REPORT COMMENT: IS PATIENT ON HEPARIN, ARGATROBAN OR DABIGATRAN?->N Test Performed at: [facility] [address] [place] [address] KALYANI SELLERS DO,MPH 08/14/2016 9:06 AM CDT 08/14/2016 9:06 AM CDT Sadia Perez RECORDER HELPER GRAVITY PROSPECTING-ANIMAL CONTROL OFFICER LAB - SEROLOGY ORDER HUMBERTO Final Result [facility] ([facility]) [address] from Last 3 Months or Most Recently Relevant to Health Maintenance Care Teams Tree Surgeon Relationship Specialty Start Date End Date Chemo Fields MD [address] [facility] [address] [facility] [address] [place] [address] PCP - General 06/16/15
--- NOTE | 2024-12-10 13:39 | WPDCARIOSTRE ---
Nuclear Stress Test INDICATIONS Indications: Chest pain PROCEDURE Procedure Performed: Myocardial Perf Spect-Multi Procedure: Patient underwent a lexiscan stress test and immediately was injected with 31.9 mCi of cardiolyte. Multiple tomographic images were obtained. These are of good quality. There is a large size, severe inferior perfusion defect and a moderate size, moderate severity apical perfusion defect with stress imaging. A separate resting images were obtained after patient was injected with 10.7 mCi of cardiolyte. Multiple tomographic images were obtained. These are of good quality. There is a large size, severe inferior perfusion defect and a moderate size, moderate severity apical perfusion defect with rest imaging. CONCLUSION Conclusion: 1. Myocardial perfusion imaging demonstrating a fixed inferior and fixed apical perfusion defects suggestive of diaphragmatic attenuation artifact. 2. No evidence of reversible ischemia. 3. Left ventriculogram demonstrates normal measured ejection fraction of 56% with no wall motion abnormalities. 4. TID score 1.01 is not elevated.
== END 2024-12-10 07:57 | disposition home or self-care (01) ==
PROVIDERS: PCP Internal Medicine; Visit Provider Internal Medicine Cardiovascular Disease
DX: R07.9 Chest pain, unspecified (principal)
CPT/HCPCS: 78452; 93017; A9502

== ENCOUNTER 2024-12-26 14:09 | Outpatient (CLI) | payer MEDICARE, MEDICAID, SELFPAY ==
--- NOTE | ~2024-12-26 | XR_ITS ---
EXAMINATION: XR chest 2V, XR shoulder RT min 2V DATE: 12/26/2024 14:43 INDICATION: Chest and right shoulder pain TECHNIQUE: 1. PA and lateral views of the chest were obtained. 2. AP internally rotated, externally rotated, Grashey and transscapular Y views of the right shoulder were obtained. COMPARISON: Chest CT dated 06/01/2024 FINDINGS: CHEST: Hyperexpansion lungs with flattening of the diaphragm, increased retrosternal clear space and increased lucency with architectural distortion in the upper lung zones corresponding to severe emphysema better appreciated on prior CT. Mild increased interstitial pattern in the bilateral lower lungs consistent with mild pulmonary edema. Very small bilateral pleural effusions with blunting at the posterior sulci. The cardiomediastinal silhouette is normal. Right shoulder: Alignment is normal. No fracture. Minimal osteoarthritis at the right glenohumeral joint. Moderate osteoarthritis at the right acromioclavicular joint with cephalad predominant marginal osteophytes. IMPRESSION: 1. Emphysema with mild pulmonary edema at the bilateral lower lungs and small bilateral pleural effusions. 2. 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 Reviewed, dictated and finalized at location A. ING INSPECTOR IMPRESSION: 1. Emphysema with mild pulmonary edema at the bilateral lower lungs and small b ilateral pleural effusions. 2. 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
--- OUTSIDE RECORDS SUMMARY | 2024-12-26 21:42 | XMS_ITS | Encounter Summary ---
Author Organization [facility] Healthcare Address [address] [place] [address] Care Team Providers Care Neurosurgical Nurse Name Role Phone Franklin German MD Primary Care Provider [phone] Reason for Referral * MRI/CAT/PET Scan (Routine) - Closed Specialty Diagnoses / Procedures Referred By Pradip mackey Referred To Contact Radiology Diagnoses Bilateral renal masses Procedures MRI Abdomen W WO Contrast Blayne Kaplan MD Phone: tel: fax: [address] [address] Referral ID Status Reason Start Date Expiration Date Visits Re quested Visits Authorized [id number] Closed 06/06/2024 07/06/2025 1 1 Encounter Details Date Type Department Care Team (Late st Contact Info) Description 06/06/2024 Community Orders [facility] [place] [address] [place] [address] Bilateral renal masses (Primary Dx) [...] on file 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
--- OUTSIDE RECORDS SUMMARY | 2024-12-26 21:42 | XMS_ITS | Clinical Summary ---
Author Organization [facility] Address [address] [place] [address] Care Team Providers Care Assembler Tractor Name Role Phone Chemo Fields MD Primary Care Provider [phone] Source Comments [facility],non-owned Affiliates and Associated Physician Practices is amultiple site organization consisting of ambulatory clinics and hospital sitesin [place], [place], [place] and [place]. This disclosure is being madepursuant to the Care Everywhere program and may not contain all information available regarding this patient. 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 The modifications have not been cleared or approved by the FDA. This assay has been validated pursuant to the CLIA regulations and is used for clinical purposes. This test was performed using the AARON(R)AmpliPrep/ AARON(R)TaqMan(R)HCV Test,v2.0. For more information on this test, go to: http://education.We Tribute.WeStore/faq/EFW89y1 (This link is being provided for informational/ educational purposes only.) REPORT COMMENT: IS PATIENT ON HEPARIN, ARGATROBAN OR DABIGATRAN?->N Test Performed at: [facility] [address] [place] [address] KALYANI SELLERS DO,MPH 08/14/2016 9:06 AM CDT 08/14/2016 9:06 AM CDT Sadia Perez EDGE SETTER-BANK PRESIDENT LAB - SEROLOGY ORDER HUMBERTO Final Result [facility] ([facility]) [id number] from Last 3 Months or Most Recently Relevant to Health Maintenance Care Teams Assembler Tractor Relationship Specialty Start Date End Date Chemo Fields MD [address] [facility] [facility] [address] [facility] [address] [place] [address] PCP - General 06/16/15
--- OUTSIDE RECORDS SUMMARY | 2024-12-26 21:42 | XMS_ITS | Clinical Summary ---
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 Gender Identity Not on file Sexual Orientation [...] 07/25/2015, 016 Medical Devices Implanted Type Area Foster Parent Device Identifier Shelf Expiration Date Model / Serial / Lot Medtronic Card Vasc Surgery 3.0 X 15mm [place] [facility] Coronary Stent [id number] - [id number] Implanted:Qty: 1 on 09/02/2022 by Yoav Longoria MD at [facility] Medtronic [facility] Vasc Surgery 04/11/2025 [id number] / / [id number] Medtronic [facility] Vasc Surgery 3.5 X 22mm [employer] [place] Rx Coronary Stent [id number] - [id number] Implanted:Qty: 1 on 09/02/2022 by Yoav Longoria MD at [facility] Medtronic [facility] Vasc Surgery 06/03/2025 [id number] / / [id number] [facility] Angio-Seal Vip 6fr Closere Device [id number] - [id number] Implanted:Qty: 1 on 09/02/2022 by oYav Longoria MD at [facility] [employer] [facility] 03/09/2023 [id number] / / [id number] Explanted Type Area Foster Parent Device Identifier Shelf Expiration Date Model / Serial / Lot Medtronic Card Vasc Surgery 3.0 X 15mm [employer] [place] [facility] Coronary Stent [id number] - [id number] Explanted:[facility]ty[facility] 04/02/2025 [id number] / / [id number] Insurance [facility] MEDICARE ADVANTAGE IDPA [facility] MEDICARE ADVANTAGE [facility] MEDICARE ADVANTAGE IDPA Advance Directives For more information, please contact: [phone] * Full Code (Latest Code Status on File) Date Activated Date Inactivated Comments 01/23/2017 9:16 PM 01/26/2017 9:55 PM Care Teams Map Compiler Relationship Specialty Start Date End Date Franklin German MD PCP - General Internal Medicine 07/07/22
== END 2024-12-26 14:10 | disposition home or self-care (01) ==
LOC: CHSLAB 14:15
PROVIDERS: PCP Internal Medicine; Visit Provider Internal Medicine
DX: R07.9 Chest pain, unspecified (principal); M25.511 Pain in right shoulder; J43.9 Emphysema, unspecified; J81.1 Chronic pulmonary edema; J90 Pleural effusion, not elsewhere classified; M19.011 Primary osteoarthritis, right shoulder
CPT/HCPCS: 71046; 73030

== ENCOUNTER 2024-12-28 13:39 | Outpatient (CLI) | payer MEDICARE, MEDICAID, SELFPAY ==
--- OUTSIDE RECORDS SUMMARY | 2024-12-28 13:44 | XMS_ITS | Encounter Summary ---
Author Organization [facility] Healthcare Address [address] [place] [address] Care Team Providers Care College Or University Department Head Name Role Phone Franklin German MD Primary Care Provider [phone] Reason for Referral * MRI/CAT/PET Scan (Routine) - Closed Specialty Diagnoses / Procedures Referred By Pradip mackey Referred To Contact Radiology Diagnoses Bilateral renal masses Procedures MRI Abdomen W WO Contrast Blayne Kaplan MD Phone: tel: fax: [address] [address] Referral ID Status Reason Start Date Expiration Date Visits Re quested Visits Authorized [id number] Closed 06/06/2024 07/06/2025 1 1 Encounter Details Date Type Department Care Team (Late st Contact Info) Description 06/06/2024 Community Orders [facility] [place] [address] [place] [address] Bilateral renal masses (Primary Dx) [...] on file 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
--- OUTSIDE RECORDS SUMMARY | 2024-12-28 13:44 | XMS_ITS | Clinical Summary ---
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 Gender Identity Not on file Sexual Orientation [...] 07/25/2015, 016 Medical Devices Implanted Type Area Computer Applications Engineer Device Identifier Shelf Expiration Date Model / Serial / Lot Medtronic Card Vasc Surgery 3.0 X 15mm [place] Rx Coronary Stent [id number] - [id number] Implanted:Qty: 1 on 09/02/2022 by Yoav Longoria MD at [facility] Medtronic [facility] Vasc Surgery 04/11/2025 [id number] / / [id number] Medtronic [facility] Vasc Surgery 3.5 X 22mm [employer] [place] Rx Coronary Stent [id number] - [id number] Implanted:Qty: 1 on 09/02/2022 by Yoav Longoria MD at [facility] Medtronic [facility] Vasc Surgery 06/03/2025 [id number] UX / / [id number] 001 [facility] Angio-Seal Vip 6fr Closere Device [id number] - [id number] Implanted:Qty: 1 on 09/02/2022 by Yoav Longoria MD at [facility] [employer] [facility] 03/09/2023 [id number] / / [id number] Explanted Type Area Computer Applications Engineer Device Identifier Shelf Expiration Date Model / Serial / Lot Medtronic Card Vasc Surgery 3.0 X 15mm [employer] [place] Rx Coronary Stent [id number] - [id number] Explanted:[facility] 04/02/2025 [id number] UX / / [id number] Insurance [facility] MEDICARE ADVANTAGE IDPA [facility] MEDICARE ADVANTAGE [facility] MEDICARE ADVANTAGE IDPA Advance Directives For more information, please contact: [phone] * Full Code (Latest Code Status on File) Date Activated Date Inactivated Comments 01/23/2017 9:16 PM 01/26/2017 9:55 PM Care Teams Aluminum Shingle Roofer Relationship Specialty Start Date End Date Franklin German MD PCP - General Internal Medicine 07/07/22
--- OUTSIDE RECORDS SUMMARY | 2024-12-28 13:44 | XMS_ITS | Clinical Summary ---
Author Organization [facility] Address [facility] [place] [address] Care Team Providers Care Child Psychiatrist Name Role Phone Franklin German MD Primary Care Provider [phone] Tio Eliudeaston Berry DO Unavailable Yojana Granda MD Unavailable [phone] Allergies No known active allergies Medications triamcinolone [...] age to complete this topic Insurance MEDICAID [facility] MEDICARE Care Teams Child Psychiatrist Relationship Specialty Start Date End Date Franklin German MD [address] [place] [id number] PCP - General INTERNAL MEDICINE 04/21/22 Eliud Kinsey DO [address] [place] [address] INTERNAL MEDICINE 06/17/22 Yojana Granda MD [address] [place] [address] CRITICAL CARE MEDICINE 06/17/22
--- OUTSIDE RECORDS SUMMARY | 2024-12-28 13:44 | XMS_ITS | Clinical Summary ---
Author Organization [facility] Address [address] [place] [address] Care Team Providers Care Supportability Engineer Name Role Phone Chemo Fields MD Primary Care Provider [phone] Source Comments [facility],non-owned Affiliates and Associated Physician Practices is amultiple site organization consisting of ambulatory clinics and hospital sitesin [place], [place], [place] and [place]. This disclosure is being madepursuant to the Care Everywhere program and may not contain all information available regarding this patient. 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 The modifications have not been cleared or approved by the FDA. This assay has been validated pursuant to the CLIA regulations and is used for clinical purposes. This test was performed using the AARON(R)AmpliPrep/ AARON(R)TaqMan(R)HCV Test,v2.0. For more information on this test, go to: http://education.[employer]Wire Inc.LeanData/faq/SDC27x0 (This link is being provided for informational/ educational purposes only.) REPORT COMMENT: IS PATIENT ON HEPARIN, ARGATROBAN OR DABIGATRAN?->N Test Performed at: [facility] [address] [place] [address] KALYANI SELLERS DO,MPH 08/14/2016 9:06 AM CDT 08/14/2016 9:06 AM CDT Sadia Perez PHARMACY MESSENGER-LIFE ADVISOR LAB - SEROLOGY ORDER HUMBERTO Final Result [facility] ([facility]) [address] from Last 3 Months or Most Recently Relevant to Health Maintenance Care Teams Supportability Engineer Relationship Specialty Start Date End Date Chemo Fields MD [address] [facility] [address] [facility] [address] [place] [address] PCP - General 06/16/15
[2024-12-28 13:54] LABS: Hematocrit 35.9 % (37.0-46.0); Hemoglobin 11.2 g/dL (12.4-15.3); Mean Corpuscular HGB Conc 31.2 g/dL (32-36); Mean Corpuscular Hemoglobin 29.4 pg (27.0-31.0); Mean Corpuscular Volume 94.2 fL (78.0-102.0); Platelet Count Result 311 K/mm3 (150-420); Red Blood Count 3.81 M/mm3 (4.70-6.10); White Blood Count 15.5 K/mm3 (4.8-10.8)
[2024-12-28 14:15] LABS: Alanine Aminotransferase 16 U/L (6-50); Albumin Level 4.3 g/dL (3.5-5.1); Alkaline Phosphatase 93 U/L (38-126); Anion Gap 10 mmol/L (4-12); Aspartate Amino Transferase 34 U/L (17-59); Bilirubin,Total 0.3 mg/dL (0.2-1.3); Blood Urea Nitrogen 27 mg/dL (9-20); CRP 2.3 mg/dL (<1.0); Calcium 9.6 mg/dL (8.4-10.2); Carbon Dioxide 32 mmol/L (22-30); Chloride 98 mmol/L (98-107); Creatine Kinase 120 U/L (55-170); Estimated Glomerular Filt Rate 51; Glucose 117 mg/dL (65-110); Osmolality Calculated 296 mOsm/kg (285-295); Potassium 4.3 mmol/L (3.4-5.0); Sodium 140 mmol/L (137-145); Total Protein 7.8 g/dL (6.3-8.2)
[2024-12-28 14:24] LABS: NT Pro B Type Natriuretic Pept 623 pg/mL (19.9-100); Troponin I < 0.012 ng/mL (0.000-0.034)
== END 2024-12-28 13:40 | disposition home or self-care (01) ==
LOC: CHSLAB 13:40
PROVIDERS: PCP Internal Medicine; Visit Provider Internal Medicine
DX: I50.9 Heart failure, unspecified (principal); R07.1 Chest pain on breathing
CPT/HCPCS: 36415; 80053; 82550; 82553; 83880; 84484; 85027; 86140